=== PATIENT | female | born 1985 | race Caucasian/White ===

== ENCOUNTER 2019-02-17 09:09 | Emergency (ER) | payer SELFPAY ==
[2011-10-03 08:25] VITALS: BP 106/61
--- NOTE | 2019-02-17 09:58 | ER ---
Nurse's Notes [facility] Name: Genesis Martel Age: 33 yrs Sex: Female : 1985 Arrival Date: 02/17/2019 Time: 09:12 Bed 15 Private MD: None, None Diagnosis: Streptococcal pharyngitis Presentation: 02/17 09:21 Presenting complaint: Patient states: Sorethroat that started this morning, reports sg chills but unsure of any fever at home. Transition of care: patient was not received from another setting of care. Onset of symptoms was February 17, 2019. Risk Assessment: Do you want to hurt yourself or someone else? Patient reports no desire to harm self or others. Initial Sepsis Screen: Does the patient meet any 2 criteria? HR > 90 bpm. Does the patient have a suspected source of infection? No. Patient's initial sepsis screen is negative. Care prior to arrival: None. 09:21 Method Of Arrival: Ambulatory sg 09:21 Acuity: DREW 4 sg Historical: - Allergies: : No Known Allergies; sg - Home Meds: : None [Active]; sg - PMHx: : None; sg - PSHx: 09:21 None; sg - Immunization history:: Adult Immunizations not up to date. - Social history:: Smoking status: Patient/guardian denies using tobacco. - Ebola Screening: : Patient negative for fever greater than or equal to 101.5 degrees Fahrenheit, and additional compatible Ebola Virus Disease symptoms Patient denies exposure to infectious person Patient denies travel to an Ebola-affected area in the 21 days before illness onset No symptoms or risks identified at this time. Screenin:33 Abuse screen: Denies threats or abuse. Denies injuries from another. Nutritional sg screening: No deficits noted. Tuberculosis screening: No symptoms or risk factors identified. Never had TB. Fall Risk None identified. Assessment: 09:33 General: Appears in no apparent distress. well groomed, well developed, well nourished, sg Behavior is calm, cooperative, appropriate for age. Pain: Complains of pain in neck,and sore throat Quality of pain is described as aching. Neuro: Level of Consciousness is awake, alert, obeys commands, Oriented to person, place, time, situation. Cardiovascular: Patient's skin is warm and dry. Chest pain is denied. Respiratory: Airway is patent Respiratory effort is even, unlabored, Respiratory pattern is regular, symmetrical, Breath sounds are clear bilaterally. Denies cough, shortness of breath labored breathing, pain with respiration, pain with cough, pain with movement, air hunger. GI: Abdomen is round non-distended. : No signs and/or symptoms were reported regarding the genitourinary system. EENT: Nares are clear bilaterally Oral mucosa is moist. Throat is reddened has enlarged tonsils bilaterally. Derm: Skin is pink, warm \T\ dry. Musculoskeletal: Circulation, motion, and sensation intact. Range of motion: intact in all extremities. Vital Signs: 09:20 BP 111 / 76; Pulse 100; Resp 16; Pulse Ox 98% on R/A; Weight 66.22 kg (R); Height 5 ft. sg 6 in. (167.64 cm) (R); Pain 6/10; 09:20 Temp 98.6; sg 09:20 Body Mass Index 23.56 (66.22 kg, 167.64 cm) sg ED Course: 09:12 Patient arrived in ED. mr 09:12 None, None is Private Physician. mr 09:19 Tam[facility]C [facility]. kb 09:19 Erwin Haddad MD is Attending Physician. kb 09:19 Noe hSepherd, RN is Primary Nurse. sg 09:20 Arm band placed on. sg 09:22 Triage completed. sg 09:30 Strep swab sent to lab. sg Administered Medications: 09:58 Drug: Augmentin 875 mg Route: PO; sg Outcome: 09:57 Discharge ordered by . kb 10:10 Patient left the ED. sg Signatures: Tamiko Hunt FNP-C FNP-Noe Hines, RN RN Devika Mosquera mr
--- NOTE | 2019-02-17 09:58 | EDPHYS ---
Physician Documentation [facility] Name: Genesis Martel Age: 33 yrs Sex: Female : 1985 Arrival Date: 02/17/2019 Time: 09:12 Bed 15 Private MD: None, None ED Physician Erwin Haddad HPI: 02/17 09:55 This 33 yrs old Female presents to ER via Ambulatory with complaints of Sore kb Throat. 09:55 The patient presents with sore throat. The patient describes throat pain as constant. kb Onset: The symptoms/episode began/occurred yesterday. Severity of symptoms: At their worst the symptoms were moderate, in the emergency department the symptoms are unchanged. Modifying factors: The symptoms are alleviated by nothing, the symptoms are aggravated by swallowing, Patient's oral intake status: good. Associated signs and symptoms: Pertinent positives: fever, Sore throat. The patient has not experienced similar symptoms in the past. The patient has not recently seen a physician. 09:56 Was at a birthday constitution party on Saturday and a child there had strep. kb Historical: - Allergies: 09:21 No Known Allergies; sg - Home Meds: 09:21 None [Active]; sg - PMHx: 09:21 None; sg - PSHx: 09:21 None; sg - Immunization history:: Adult Immunizations not up to date. - Social history:: Smoking status: Patient/guardian denies using tobacco. - Ebola Screening: : Patient negative for fever greater than or equal to 101.5 degrees Fahrenheit, and additional compatible Ebola Virus Disease symptoms Patient denies exposure to infectious person Patient denies travel to an Ebola-affected area in the 21 days before illness onset No symptoms or risks identified at this time. ROS: 09:54 Neck: Negative for injury, pain, and swelling, Cardiovascular: Negative for chest pain, kb palpitations, and edema, Respiratory: Negative for shortness of breath, cough, wheezing, and pleuritic chest pain, Abdomen/GI: Negative for abdominal pain, nausea, vomiting, diarrhea, and constipation, Back: Negative for injury and pain, : Negative for injury, bleeding, discharge, and swelling, MS/Extremity: Negative for injury and deformity, Skin: Negative for injury, rash, and discoloration, Neuro: Negative for headache, weakness, numbness, tingling, and seizure. 09:54 Constitutional: Positive for fever. 09:54 ENT: Positive for sore throat. Exam: 09:54 Constitutional: This is a well developed, well nourished patient who is awake, alert, kb and in no acute distress. Head/Face: Normocephalic, atraumatic. Neck: Trachea midline, no thyromegaly or masses palpated, and no cervical lymphadenopathy. Supple, full range of motion without nuchal rigidity, or vertebral point tenderness. No Meningismus. Chest/axilla: Normal chest wall appearance and motion. Nontender with no deformity. No lesions are appreciated. Cardiovascular: Regular rate and rhythm with a normal S1 and S2. No gallops, murmurs, or rubs. Normal PMI, no JVD. No pulse deficits. Respiratory: Lungs have equal breath sounds bilaterally, clear to auscultation and percussion. No rales, rhonchi or wheezes noted. No increased work of breathing, no retractions or nasal flaring. Abdomen/GI: Soft, non-tender, with normal bowel sounds. No distension or tympany. No guarding or rebound. No evidence of tenderness throughout. Skin: Warm, dry with normal turgor. Normal color with no rashes, no lesions, and no evidence of cellulitis. MS/ Extremity: Pulses equal, no cyanosis. Neurovascular intact. Full, normal range of motion. Neuro: Awake and alert, GCS 15, oriented to person, place, time, and situation. Cranial nerves II-XII grossly intact. Motor strength 5/5 in all extremities. Sensory grossly intact. Cerebellar exam normal. Normal gait. 09:54 ENT: External ear(s): are unremarkable, Ear canal(s): are normal, TM's: are normal, Nose: is normal, Mouth: is normal, Posterior pharynx: Airway: normal, no evidence of obstruction, Tonsils: bilaterally enlarged, with erythema, Uvula: normal, midline, swelling, that is moderate, erythema, that is moderate, exudate, is not appreciated. Vital Signs: 09:20 BP 111 / 76; Pulse 100; Resp 16; Pulse Ox 98% on R/A; Weight 66.22 kg (R); Height 5 ft. sg 6 in. (167.64 cm) (R); Pain 6/10; 09:20 Temp 98.6; sg 09:20 Body Mass Index 23.56 (66.22 kg, 167.64 cm) MDM: 09:19 Patient medically screened. kb 09:55 Data reviewed: vital signs, nurses notes. Data interpreted: Pulse oximetry: on room air kb is 98 %. Interpretation: normal. Counseling: I had a detailed discussion with the patient and/or guardian regarding: the historical points, exam findings, and any diagnostic results supporting the discharge/admit diagnosis, lab results, the need for outpatient follow up, a family practitioner, to return to the emergency department if symptoms worsen or persist or if there are any questions or concerns that arise at home. 02/17 09:25 Order name: Strep; Complete Time: 09:53 kb Administered Medications: 09:58 Drug: Augmentin 875 mg Route: PO; Disposition: 02/18 07:15 Co-signature as Attending Physician, Erwin Haddad MD I agree with the assessment and kdr plan of care. Disposition: 02/17/19 09:57 Discharged to Home. Impression: Streptococcal pharyngitis. - Condition is Stable. - Discharge Instructions: Strep Throat, [id number]. - Prescriptions for Augmentin 875- 125 mg Oral Tablet - take 1 tablet by ORAL route every 12 hours for 10 days; 20 tablet. - Medication Reconciliation Form, Thank You Letter, Antibiotic Education, Prescription Opioid Use, Work release form form. - Follow up: Emergency Department; When: As needed; Reason: Worsening of condition. Follow up: Private Physician; When: 2 - 3 days; Reason: Recheck today's complaints, Continuance of care, Re-evaluation by your physician. Signatures: Dispatcher [employer] Tamiko Balbuena, BROOKE-C CORRECTIVE THERAPY AIDE-Noe Hines RN RN Erwin Zuniga MD MD [facility] Corrections: (The following items were deleted from the chart) 02/17 10:10 09:57 02/17/2019 09:57 Discharged to Home. Impression: Streptococcal pharyngitis. sg Condition is Stable. Forms are Medication Reconciliation Form, Thank You Letter, Antibiotic Education, Prescription Opioid Use. Follow up: Emergency Department; When: As needed; Reason: Worsening of condition. Follow up: Private Physician; When: 2 - 3 days; Reason: Recheck today's complaints, Continuance of care, Re-evaluation by your physician. kb
[2019-02-17] MEDS ORDERED: AMOX/K CLAV 875 MG TAB ONE (09:59)
== END 2019-02-17 10:10 | disposition home or self-care (01) ==
LOC: ER 09:09
DX: J02.0 Streptococcal pharyngitis (principal)
CPT/HCPCS: 87081; 99283

== ENCOUNTER 2019-02-17 15:37 | Emergency (ER) | payer SELFPAY ==
[2019-02-17] MEDS ORDERED: HYDROCODONE/APAP 10/325 TAB ONE (16:00)
[2019-02-17] MEDS ORDERED: PROMETHAZINE 25 MG TABLET ONE (16:00)
[2019-02-17] MEDS ORDERED: DIAZEPAM 2 MG TABLET ONE (16:00)
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
[2019-02-17 17:07] VITALS: O2SAT 100
[2019-02-17 17:09] VITALS: BP 115/78; TEMP 98.5
--- NOTE | 2019-02-18 06:37 | EKG ---
Test Date: 2019-02-17 Test Time: 16:07:07 Grass Cutter: TAZ MEASUREMENT RESULTS: Intervals: Rate: 90 AR: 134 QRSD: 86 QT: 364 QTc: 445 [place]: P: 71 AR: 134 QRS: 59 T: 49 INTERPRETIVE STATEMENTS: Normal sinus rhythm Normal ECG No previous ECG available for comparison Electronically Signed On 02-18-19 06:36:25 RADIO RIGGER by Bharath Ohara
== END 2019-02-17 16:41 | disposition home or self-care (01) ==
LOC: ER 15:37
DX: S20.211A Contusion of right front wall of thorax, initial encounter (principal); V49.40XA Driver injured in collision with unspecified motor vehicles in traffic accident, initial encounter
CPT/HCPCS: 71250; 74150; 93005; 99284; Q0169

== ENCOUNTER 2020-05-01 09:05 | Emergency (ER) | payer SELFPAY ==
--- OUTSIDE RECORDS SUMMARY | 2020-05-01 09:07 | XMS REPORT | Summary of Care ---
:1985 [address] [facility] - Health Address [address] [place] [address] Care Team Providers Name Role Phone Samantha Trevizo Primary Care Provider Encounter Details Date Type Department Care Team Description 02/11/[address] [facility] Doctor Unassigned, No [address] [facility] [place] [address] [address] [place] [address] Allergies Active Allergy Reactions Severity Noted Date Comments Hydrocodone Nausea and/or Vomiting 04/10/2017 documented as of this encounter (statuses as of 02/11/2020) Medications Medication Sig Dispensed Refills Start Date End Date Status cefpodoxime 200 mg Take 1 tablet by 10 tablet 0 04/12/2017 Active tablet mouth 2 (two) times daily. traMADOL 50 mg tablet Take 1 tablet by 10 tablet 0 04/11/2017 Active mouth every 6 (six) hours as needed for Pain (scale 4-6) or Pain (scale 7-10). 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 documented as of this encounter (statuses as of 02/11/2020) Social History Tobacco Use Types Packs/Day Years Used Date Never Smoker Alcohol Use Drinks/Week oz/Week Comments No Sex Assigned at Date Recorded Not on file documented as of this encounter Last Filed Vital Signs Not on filedocumented in this encounter Plan of Treatment Date Type Specialty Care Team Description 02/11/2020 Office Visit OB Satellites Angelica Gaviria, TUBE WASHER [address] [place], [place] [address] [phone] Health Maintenance Due Date Last Done Comments VARICELLA VACCINES (1 of 2 - 10/08/1988 2-dose childhood series) Depression Screening 1999 DTaP,Tdap,and Td Vaccines (1 - 10/08/2006 Tdap) PAP SMEAR 10/08/2008 INFLUENZA VACCINE (#1) 2019 PNEUMOCOCCAL 0-64 YEARS COMBINED Aged Out No longer eligible based on SERIES patient's age to complete this topic documented as of this encounter Procedures Procedure Name Priority Date/Time Associated Diagnosis Comme nts NOTICE OF PRIVACY Routine 02/11/2020 12:52 PM CDT PRACTICES documented in this encounter Results Not on filedocumented in this encounter Insurance Payer Benefit Plan / Subscriber ID Effective Phone Address [facility] [id number] 2017-Pres [address] Medic aid HEALTH CHOICE HEALTH CHOICE ent [id number] - MANAGED MEDICAID [place], [place] [id number] [facility] [id number] 2020-Pres [phone] Medicaid WOMEN WOMEN ent [id number] [place] [address] [facility] HTW-RMCHP [id number] 2020-Pres [phone] edicaid WOMEN ent [id number] [place] [address] documented as of this encounter
--- OUTSIDE RECORDS SUMMARY | 2020-05-01 09:07 | XMS REPORT | Continuity of Care Document ---
:1985 Author Organization [facility] t Address [address] [place] [address] Care Team Providers Name Role Phone [place] [facility] Attending Clinician Jerri Esparza Attending Clinician Problems This patient has no known problems. Allergies, Adverse Reactions, Alerts This patient has no known allergies or adverse reactions. Medications This patient has no known medications. Procedures This patient has no known procedures. Encounters Start End Encounter Admission Attending Care Care Encounter Source Date/Time Date/Time Type Type Clinicians Facility Department ID 2020-03-03 2020-03-03 Telephone SHARAD Ríos [id number] 00:00:00 00:00:00 [facility] [id number] [facility] [id number] 2020-03-03 2020-03-03 Letter SHARAD Ríos [id number] 00:00:00 00:00:00 (Out) [facility] [id number] [facility] [id number] 2020-02-11 2020-02-11 Office JAC Gaviria [id number] 12:57:49 14:29:44 Visit Angelica Guthrie HISTOLOGY ASSISTANT [id number] [facility] [id number] MATERNAL [id number] & CHILD [address] [place] [address] Results This patient has no known results.
--- OUTSIDE RECORDS SUMMARY | 2020-05-01 09:08 | XMS REPORT | Summary of Care ---
:1985 Author Organization [facility] Address [address] [place] [address] Care Team Providers Name Role Phone Samantha Trevizo Primary Care Provider Reason for Referral (Routine) Status Reason Specialty Diagnoses / Referred By Referred To Procedures Contact Contact New Request Obstetrics & Diagnoses Abnormal appearance of cervix Angelica Gaviria Gynecology Procedures CONSULT/REFERRAL ARCHIVIST POLITICAL HISTORY Dysplasia Clinic N, [employer] [address] [place] [address] Reason for Visit Reason Comments Well Woman Exam Encounter Details Date Type Department Care Team Description 02/11/2020 Office Visit [facility]- Angelica Gaviria Wel l woman exam (Primary Dx); [facility] History of female sterilization; [address] Screen for STD (sexually transmitted dis ease); Street [place] [address] Abnormal uterine bleeding; [place] [id number] Pain pelvic; [id number] Abnormal appearance of cervix [phone] Allergies Active Allergy Reactions Severity Noted Date Comments Hydrocodone Nausea and/or Vomiting 04/10/2017 documented as of this encounter (statuses as of 02/11/2020) Medications Medication Sig Dispensed Refills Start Date End Date Status cyanocobalamin, Inject as 0 Act celi vitamin B-12, directed. 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 traMADOL 50 mg Take 1 tablet 10 tablet 0 04/11/2017 02/11/2020 Discontinued tablet by mouth every 6 (six) hours as needed for Pain (scale 4-6) or Pain (scale 7-10). 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 documented as of this encounter (statuses as of 02/11/2020) Social History Tobacco Use Types Packs/Day Years Used Date Former Smoker Quit: 2011 Smokeless Tobacco: Never Used Alcohol Use Drinks/Week oz/Week Comments Yes SOCIAL Sex Assigned at Date Recorded Not on file documented as of this encounter Last Filed Vital Signs Vital Sign Reading Time Taken Comments Blood Pressure 102/67 02/11/2020 1:30 PM CDT Pulse 83 02/11/2020 1:30 PM CDT Temperature 36.3 C (97.3 F) 02/11/2020 1:30 PM CDT Respiratory Rate 18 02/11/2020 1:30 PM CDT Oxygen Saturation - - Inhaled Oxygen Concentration - - Weight 65.4 kg (144 lb 3 oz) 02/11/2020 1:30 PM CDT Height 154.9 cm (5' 1") 02/11/2020 1:30 PM CDT Body Mass Index 27.24 02/11/2020 1:30 PM CDT documented in this encounter Patient Instructions Patient InstructionsCecelia Egan LVN - 02/11/2020 1:00 PM CDT Patient Education Clinical Breast Exam Many health organizations recommend a yearly clinical breast exam. This exam may be done by a felt machine mechanic, family healthcare provider, nurse practitioner, nurse pipe line gauger, or specially trained nurse. Yearly breast exams help tomake surethat breast conditions are found early. Your healthcare providers role A healthcare professional knows the tests and follow-up care needed if a problem is found. Your clinical exam is also a great time to ask questions about breast self-exams. You can find out if yourechecking your breasts in the best way. Or you may want to ask how , breast implants, or breast reduction surgery affect the way you should check your breasts. Diagnostic tests If a clinical exam reveals a breast change, you may have other tests to find out more. These tests may include: Mammography. A low-dose X-ray of your breast tissue. Ultrasound. An imaging test that uses sound waves to create images of your breast. Biopsy. A small amount of breast tissue is removed by needle or by a cut (incision). The tissue is then checked under a microscope. Guidelines for having clinical breast exams The [place] [employer] recommends that starting at age 29, you should have a clinical breast exam every 1 to 3 years. After age 40, have a clinical breast exam each year. If youre at higher risk for breast cancer, you may need exams more often. Risk factors for breast cancer may include: Being over 50 or postmenopausal Having a family history of breast cancer Having the BRCA1 or BRCA2 gene mutation or certain other gene mutations Having more menstrual periods due to starting menstruation early(before age 12) or having a late menopause (after age 55) Having no pregnancies Having a first after age 30 Being obese Having a history of radiation treatment to your chest area Exposure to AI during your mother's Not being active Drinking too much alcohol Having dense breast tissue Taking hormone therapy after menopause Other health organizations have different recommendations. Talk with your healthcare provider about what is best for you. [employer] last reviewed this educational content on 07/15/201919998216-2269 The [employer]. All rights reserved. This information is not intended as a substitute for professional medical care. Always follow your healthcare professional's instructions. Patient Education Breast Health: Breast Self-Awareness What is breast self-awareness? Breast self-awareness is knowing how your breasts normally look and feel. Your breasts change as yougo through different stages of your life. So its important to learn what is normal for your breasts. Knowing about your breasts helps you spot any changes in them right away. Tell your healthcare provider about any changes. Why is breast self-awareness important? Many experts now say that women should focus on breast self-awareness instead of doing a breast self-examination (BSE). These experts include the [place] [employer] and the [place] [employer]. Some experts even advise not teaching women to do a BSE. Thats because research hasnt shown a clear benefit to doing BSEs. Breast self-awareness is different than a BSE. It isnt about following a certain method and schedule. Its about knowing what's normal for your breasts. That way you can spot even small changes right away. If you see any changes, tell your healthcare provider. Changes to look for Call your healthcare provider if you find any changes in your breasts that worry you. These changes may be: A lump Nipple discharge other than breast milk, especially if it's bloody Swelling A change in size or shape Skin changes, such as redness, thickening, or dimpling of the skin Swollen lymph nodes in the armpit Nipple problems, such as pain or redness If you find a lump Call your provider if you find lumpiness in one breast. Also call if you feel something different inthe tissue or feel a definite lump. Sometimes lumpiness may be due to menstrual changes. But there may be reason for concern. Your provider may want to see you right away if you have: Nipple discharge that is bloody Skin changes on your breast, such as dimpling or puckering Its okay to be upset if you find a lump. Be sure to call your provider right away. Remember that most breast lumps are benign. This means they are not cancer. [employer] last reviewed this educational content on 08/14/201919998162-6681 The [employer]. All rights reserved. This information is not intended as a substitute for professional medical care. Always follow your healthcare professional's instructions. Patient Education Prevention Guidelines,Women Ages 18 to 39 Screening tests and vaccines are an important part of managing your health. A screening test is doneto find possible disorders or diseases in people who don't have any symptoms. The goal is to find a disease early so lifestyle changes can be made and you can be watched more closely to reduce the riskof disease, or to detect it early enough to treat it most effectively. Screening tests are not considered diagnostic, but are used to determine if more testing is needed. Health counseling is essential, too. Below are guidelines for these, for women ages 18 to 39. Talk with your healthcare provider tomake sure youre up-to-date on what you need. Screening Who needs it How often Alcohol misuse All women in this age group At routine exams Blood pressure All women in this age group Yearly checkup if your blood pressure is normal Normal blood pressure is less than 120/80 mm Hg If your blood pressure reading is higher than normal, follow the advice of your healthcare provider Breast cancer All women in this age group should talk with their healthcare providers about the needfor clinical breast exams (CBE)1 Clinical breast exam every 3 years1 Cervical cancer Women ages 21 and older Women between ages 21 and 29 should have a Pap test every 3years; women between ages 30 and 65 are advised to have a Pap test plus an HPV test every 5 years Chlamydia Sexually active women ages 24 and younger, and women at increased risk for infection Every 3 years if you're at risk or have symptoms Depression All women in this age group At routine exams Diabetes mellitus, type 2 Adults with no symptoms who are overweight or obese and have 1 or more other risk factors for diabetes At least every 3 years. Also, testing for diabetes during after the 24th week. Gonorrhea Sexually active women at increased risk for infection At routine exams Hepatitis C Anyone at increased risk At routine exams HIV All women At routine exams3 Obesity All women in this age group At routine exams Syphilis Women at increased risk for infection should talk with their healthcare provider At routine exams Tuberculosis Women at increased risk for infection should talk with their healthcare provider Ask your healthcare provider Vision All women in this age group At least 1 complete exam in your 20s, and 2 in your 30s Vaccine Who needs it How often Chickenpox (varicella) All women in this age group who have no record of this infection or vaccine2 doses; the second dose should be given 4 to 8 weeks after the first dose Hepatitis A Women at increased risk for infection should talk with their healthcare provider 2 doses given at least 6 months apart Hepatitis B Women at increased risk for infection should talk with their healthcare provider 3 doses over 6 months; second dose should be given 1 month after the first dose; the third dose should be given at least 2 months after the second dose and at least 4 months after the first dose Haemophilus influenzae Type B (HIB) Women at increased risk for infection should talk with their healthcare provider 1 to 3 doses Human papillomavirus (HPV) All women in this age group up to age 26 3 doses; the second dose should be given 1 to 2 months after the first dose and the third dose given 6 months after the first dose Influenza (flu) All women in this age group Once a year Measles, mumps, rubella (MMR) All women in this age group who have no record of these infections orvaccines 1 or 2 doses Meningococcal Women at increased risk for infection should talk with their healthcare provider 1 ormore doses Pneumococcal conjugate vaccine (PCV13)and pneumococcal polysaccharidevaccine(PPSV23) Women atincreased risk for infection should talk with their healthcare provider PCV13: 1 dose ages 19 to 65(protects against 13 types of pneumococcal bacteria) PPSV23: 1 to2 doses through age 64, or 1 dose at 65 or older (protects against 23 types of pneumococcal bacteria) Tetanus/diphtheria/pertussis (Td/Tdap) booster All women in this age group Td every 10 years, or a one-time dose of Tdap instead of a Td booster after age 18, then Td every 10 years Counseling Who needs it How often BRCA gene mutation testing for breast and ovarian cancer susceptibility Women with increased risk for having gene mutation When your risk is known Breast cancer and chemoprevention Women at high risk for breast cancer When your risk is known Diet and exercise Women who are overweight or obese When diagnosed, and then at routine exams Domestic violence Women at the age in which they are able to have children At routine exams Sexually transmitted infection prevention Women who are sexually active At routine exams Skin cancer Prevention of skin cancer in fair-skinned adults At routine exams Use of tobacco and the health effects it can cause All women in this age group Every visit 1 According to the ACS, women ages 20 to 39 years should have a clinical breast exam (CBE) as part of their routine health exam every 3 years. Breast self-exams are an option for women starting in their 20s.But the U.S. Preventive Services Task Force (USPSTF) does not recommend CBE. 2 Those who are 18 years old and not up-to-date on their childhood vaccines should get all appropriate catch-up vaccines recommended by the CDC. 3 The USPSTF recommends that all people ages 15 to 65 years be screened for HIV and those younger orolder people at increased risk. The CDC recommends that everyone between the ages of 13 and 64 get tested for HIV at least once as part of routine health care. [employer] last reviewed this educational content on 01/13/201719990156-0760 The [employer]. All rights reserved. This information is not intended as a substitute for professional medical care. Always follow your healthcare professional's instructions. Patient Education Understanding STIs When it comes to sex, nothing is risk-free. Any sexual contact with the penis, vagina, anus, or mouth can spread a sexually transmitted infection (STI). These include chlamydia, gonorrhea, herpes, HIV,and genital warts. STIs are also known as sexually transmitted diseases (STDs). The only sure way toprevent STIs is not having sex (abstinence). But there are ways to make sex safer. Use a latex condom each time you have sex. And choose your partner wisely. Use condoms for safer sex If you have sex, latex condoms provide the best protection against STIs. Latex condoms stop the exchange of body fluids that carry certain STIs. They also limit contact with affected skin. Be aware that a condom doesnt cover all skin. So affected skin that isn't covered can still transfer disease. But youre safer with a condom than without one. Use a condom even if you use other control. control methods such as the pill or IUD help prevent , but they don't protect against STIs. Choose the right condom Condoms made of latex prevent disease best. If youre allergic to latex, use polyurethane condoms instead. Male condoms fit over the penis. Female condoms line the vagina. Before buying a condom, read the label to be sure it prevents disease. Some novelty condoms dont. The right lubricant helps Buy lubricated condoms or use lubricant. This provides greater comfort and reduces the risk for condom breakage. Use only water-based lubricants. Dont use oil, lotion, or petroleum jelly. They can weaken the condom, causing breakage. Also, you may want to choose lubricants without nonoxynol-9. This spermicide may cause irritation. It can raise the risk for certain STIs. Use condoms correctly For condoms to work, they must be used the right way. Keep these tips in mind: Use a new latex condom each time you have sex. Slip the condom on the penis before any contact ismade. When ready to withdraw, hold the rim of the condom as the penis pulls out. This prevents the condom from slipping off. Check the expiration date before using a condom. Dont store condoms in places that can get hot, such as a car or a wallet that is carried in a back pocket. Get to know your partner Safer sex is a process. It involves getting to know your partner and making informed choices. Ask each other how many partners you have had in the past, and how many you have now. Find out if either ofyou has HIV or any other STI. If you decide to have sex, use a condom each time. Dont stop using condoms unless youre sure neither of you has other partners and youve both been tested to confirm you dont have HIV or other STIs. Then stay free of disease by having sex only with each other (monogamy). Keep your cool Dont let alcohol or drugs cloud your judgment. They could lead you to have sex with someone you wouldnt have chosen if you were sober. Or you might forget to use a condom. If you do plan to have sex, keep a latex condom with you. Dont wait until youre in the heat of passion to try to find one. Consider abstinence The only way to be sure you wont get an STI is to abstain from sex. Abstinence is a choice that many people make at some point in their life. Maybe you want to wait until you are sure youre readybefore you have sex. Maybe youd like a break from the responsibilities of sex for a while. Or maybe you just want to know your partner better before taking the next step. Abstinence is a choice you can make now to protect your future. [employer] last reviewed this educational content on 03/15/201819996860-3058 The [employer]. [address] [place] [address], [place] [address]. All rights reserved. This information is not intended as a substitute for professional medical care. Always follow your healthcare professional's instructions. Patient Education Understanding HIV and AIDS It's important to know how HIV can get into your body and what happens once its there. Then youll be better prepared to protect yourself or others against this virus. A person with HIV can look and feel perfectly healthy. But that person can give HIV to others as soon as he or she is infected with the virus. Having unsafe or unprotected sex or sharing needles puts you at risk for HIV. Talk with your healthcare provider about ways to protect yourself or a loved one from getting HIV. How HIV infection progresses After HIV enters the body, it attacks the immune system in the stages below. A person with HIV can infect others once the virus gets into the blood. HIV with no symptoms. A person with HIV may have no symptoms for years. The only sign of infection may be a positive blood test for HIV 2 weeks to 3 months or later after HIV enters the body. HIV with symptoms. Some people develop an illness similar to mono (mononucleosis) 2 to 4 weeks after the virus enters the body. This is called acute retroviral syndrome. Symptoms may include swollen lymph glands, chills, fever, night sweats, weakness, weight loss, skin rashes, mouth ulcers, or sore t hroat. Symptoms may be mild or the person can feel quite sick. Even without treatment the symptoms almost always go away in a few days or up to 2 to 3 weeks. Then the person has no symptoms, often for years. But over time the immune system starts to get weaker and symptoms start appearing. People at this stage may have a yeast infection in the mouth (oral thrush), shingles, skin problems, pneumonia, diarrhea that keeps coming back, or weight loss. AIDS. AIDS is the most advanced stage of HIV infection, when the immune system is severely weakened.Certain rare diseases and cancers that normally would not occur, now can occur because the body can no longer fight them well enough. It is often these diseases that cause in people with AIDS. HIV may also directly attack the brain and nervous system. This causes seizures and loss of memory and body movement. It also affects many other parts of the body. This leads to problems such as anemia, low white blood cell count, diarrhea, belly pain, skin problems, and many others. How HIV enters the body HIV is carried in semen, vaginal fluid, blood, and breastmilk. During sex, HIV can enter the body. It gets in through the fragile tissue and linings, sores, or cuts in or around the vagina, penis, anus, and mouth. During drug use, tattooing, or body piercing, the virus can enter the blood through an infected needle. A mother who has HIV can infect her child during , childbirth, and . [employer] last reviewed this educational content on 09/13/201819997320-9792 The [employer]. [address] [place] [address], [place] [address]. All rights reserved. This information is not intended as a substitute for professional medical care. Always follow your healthcare professional's instructions. Patient Education Eating Heart-Healthy Foods Eating has a big impact on your heart health. In fact, eating healthier can improve several of your heart risks at once. For instance, it helps you manage weight, cholesterol, and blood pressure. Here are ideas to help you make heart- healthy changes without giving up allthe foods and flavors you love. Getting started Talk with your healthcare provider about eating plans, such as the DASH or Mediterranean diet. You may also be referred to a dietitian. Change a few things at a time. Give yourself time to get used to a few eating changes before adding more. Work to create a tasty, healthy eating plan that you can stick to for the rest of your life. Goals for healthy eating Below are some tips to improve your eating habits: Limit saturated fats and trans fats. Saturated fats raise your levels of cholesterol, so keep these fats to a minimum. They are found in foods such as fatty meats, whole milk, cheese, and palm and coconut oils. Avoid trans fats because they lower good cholesterol as well as raise bad cholesterol. Trans fats are most often found in processed foods, such as pastries, cookies, pies, muffins, fried foods, stick margarines, and shortening. Reduce how much sodium (salt) you have. Eating too much salt may increase your blood pressure. Limit your sodium intake to 2,300 milligrams (mg) per day(the amount in 1 teaspoon of salt), or less if your healthcare provider recommends it. Dining out less often and eating fewer processed foods aretwo great ways to decrease the amount of salt you consume. At home, flavor your foods with other spices and herbs instead of salt. Managing calories. A calorie is a unit of energy. Your body gomez calories for fuel, but if you eat more calories than your body gomez, the extras are stored as fat. Your healthcare provider can help you create a diet plan to manage your calories. This will likely include eating healthier foods andgetting regular exercise. To help you track your progress, keep a diary to record what you eat and how often you exercise. Choose the right foods Aim to make these foods ricky of your diet. If you have diabetes, you may have different recommendations than what is listed here: Fruits and vegetables provide plenty of nutrients without a lot of calories. At meals, fill half your plate with these foods. Choose between fresh, frozen, canned, or dried without added sauces, salt, or sugars. Split the other half of your plate between whole grains and lean protein. Whole grains are high in fiber and rich in vitamins and nutrients. Good choices include whole wheat bread, pasta, oats, and brown rice. Make at least half of your grains whole grains. Lean proteins give you nutrition with less fat. Good choices include fish, skinless chicken and turkey, and beans. Draining the fat from cooked ground meat is another way to reduce the amount of fatyou eat. Low-fat and nonfat dairy provide nutrients without a lot of fat. Try low-fat or nonfat milk, cheese, or yogurt. Healthy fats can be good for you in small amounts. These are unsaturated fats, such as olive oil,nuts, and fish. Try to have at least 2 servings per week of fatty fish, such as salmon, sardines, mackerel, rainbow trout, and albacore tuna. These contain omega-3 fatty acids, which are good for your heart. Flaxseed and walnuts are other sources of heart-healthy fats. More on heart-healthy eating Read food labels Healthy eating starts at the grocery store. Be sure to pay attention to food labels on packaged foods. Look for products that are high in fiber and protein, and low in saturated fat, added sugars, and sodium. Avoid products that contain trans fat. And pay close attention to serving size. For instance,if you plan to eat two servings, double all the numbers on the label. Prepare food right A watt part of healthy cooking is cutting down on added fat, sugar and salt. Look on the internet forlower-fat, lower-sodium recipes without a lot of added sugars. Also try these tips: Remove fat from meat and skin from poultry before cooking. Skim fat from the surface of soups and sauces. Broil, roast, boil, bake, steam, grill, or microwave food without added fats. Choose ingredients that spice up your food without adding calories, fat, sugar, or sodium. Try these items: horseradish, hot sauce, lemon, mustard, nonfat salad dressings, and vinegar. Small amountsof olive oil-based vinaigrettes are OK, too. For salt-free herbs and spices, try basil, cilantro, cinnamon, cumin, paprika, pepper, and yang. [employer] last reviewed this educational content on 10/14/201919997153-6466 The [employer]. All rights reserved. This information is not intended as a substitute for professional medical care. Always follow your healthcare professional's instructions. Patient Education Understanding USDA MyPlate The USDA has guidelines to help you make healthy food choices. These are called MyPlate. MyPlate shows the food groups that make up healthy meals using the image of a place setting. Before you eat, think about the healthiest choices for what to put on your plate or in your cup or bowl. To learn more about building a healthy plate, visit www.choosemyplate.gov. The food groups Fruits. Any fruit or 100% fruit juice counts as part of the Fruit Group. Fruits may be fresh, canned, frozen, or dried, and may be whole, cut-up, or pureed. Make 1/2 of your plate fruits and vegetables. Vegetables. Any vegetable or 100% vegetable juice counts as a member of the Vegetable Group. Vegetables may be fresh, frozen, canned, or dried. They can be served raw or cooked and may be whole, cut-up, or mashed. Make 1/2 of your plate fruits and vegetables. Grains. All foods made from grains are part of the Grains Group. These include wheat, rice, oats,cornmeal, and barley. Grains are often used to make foods such as bread, pasta, oatmeal, cereal, tortillas, and grits. Grains should be no more than 1/4 of your plate. At least half of your grains should be whole grains. Protein. This group includes meat, poultry, seafood, beans and peas, eggs, processed soy products(such as tofu), nuts (including nut butters), and seeds. Make protein choices no more than 1/4 of your plate. Meat and poultry choices should be lean or low fat. Dairy. The Dairy Group includes all fluid milk products and foods made from milk that contain calcium, such as yogurt and cheese. (Foods that have little calcium, such as cream, butter, and cream cheese, are not part of this group.) Most dairy choices should be low-fat or fat-free. Oils. Oils aren't a food group, but they do contain essential nutrients. However it's important to watch your intake of oils. These are fats that are liquid at room temperature. They include canola,corn, olive, soybean, vegetable, and sunflower oil. Foods that are mainly oil include mayonnaise, certain salad dressings, and soft margarines. You likely already get your daily oil allowance from the foods you eat. Things to limit Eating healthy also means limiting these things in your diet: Salt (sodium). Many processed foods have a lot of sodium. To keep sodium intake down, eat fresh vegetables, meats, poultry, and seafood when possible. Purchase low-sodium, reduced-sodium, or vd-utgc-lnfvy food products at the store. And don't add salt to your meals at home. Instead, season them with herbs and spices such as dill, oregano, cumin, and paprika. Or try adding flavor with lemon or limezest and juice. Saturated fat. Saturated fats are most often found in animal products such as beef, pork, and chicken. They are often solid at room temperature, such as butter. To reduce your saturated fat intake, choose leaner cuts of meat and poultry. And try healthier cooking methods such as grilling, broiling,roasting, or baking. For a simple lower-fat swap, use plain nonfat yogurt instead of mayonnaise whenmaking potato salad or macaroni salad. Added sugars. These are sugars added to foods. They are in foods such as ice cream, candy, soda, fruit drinks, sports drinks, energy drinks, cookies, pastries, jams, and syrups. Cut down on added sugars by sharing sweet treats with a family member or friend. You can also choose fruit for dessert, and drink water or other unsweetened beverages. [employer]Net last reviewed this educational content on 09/14/201919990078-7845 The [employer]. All rights reserved. This information is not intended as a substitute for professional medical care. Always follow your healthcare professional's instructions. documented in this encounter Progress Notes Angelica Gaviria FNP - 02/11/2020 1:00 PM CDT Chief complaint: Chief Complaint Patient presents with Well Woman Exam HPI Here for Well Woman Exam and contraceptive management. Patient has Essure for contraception, inserted by Dr. Hernandez in 2013. Pt reports 1 month after Essure placement she started having pelvic pain. She describes the pain as a constant cramping that has worsened over the last year. She also reports prolonged bleeding with periods, most recent period lasted 3 weeks. Reports pain with intercourse. Desires STD testing. Pt reports no past or present history of physical, sexual, and emotional abuse. Rubella: n/a VZV: n/a BMI: Body mass index is 27.24 kg/m. Td: unsure, declines Pap Smear: due today Gardasil: N/A Mammogram:N/A Guaiac:N/A Colonoscopy:N/A Histories OB History Para Term AB Living 3 3 2 3 SAB TAB Ectopic Multiple Live Births 3 # Outcome Date GA Lbr Grupo/2nd Weight Sex Delivery Anes PTL Lv 3 Term 03/11/13 39w0d F NORMAL SPONT SAM 2 Para 09/30/11 40w0d M NORMAL SPONT SAM 1 Term 08/21/08 38w0d F NORMAL SPONT SAM Past Medical History: Diagnosis Date Abnormal uterine bleeding 02/11/2020 Anxiety 2013 Asthma as a child Depression 2009 post depression Depression 2013 ongoing Kidney disease Family History Problem Relation Age of Onset Lung Cancer Maternal Grandmother Cancer Maternal Grandmother lung Asthma Mother Depression Mother Heart Father Depression Brother Depression Maternal Uncle Heart Paternal Uncle Heart Paternal Grandfather Family Status Relation Name Status MGMo Mo Alive Fa Alive Bro Alive MUnc Alive PUnc PGFa Alive History reviewed. No pertinent surgical history. Social History Socioeconomic History Marital status: Single Spouse name: Not on file Number of children: Not on file Years of education: Not on file Highest education level: Not on file Occupational History Not on file Social Needs Financial resource strain: Not on file Food insecurity Worry: Not on file Inability: Not on file Transportation needs Medical: Not on file Non-medical: Not on file Tobacco Use Smoking status: Former Smoker Quit date: 2011 Years since quittin.8 Smokeless tobacco: Never Used Substance and Sexual Activity Alcohol use: Yes Comment: SOCIAL Drug use: Not Currently Types: Mescaline Sexual activity: Not on file Lifestyle Physical activity Days per week: Not on file Minutes per session: Not on file Stress: Not on file Relationships Social connections Talks on phone: Not on file Gets together: Not on file Attends episcopalian service: Not on file Active member of club or organization: Not on file Attends meetings of clubs or organizations: Not on file Relationship status: Not on file Intimate partner violence Fear of current or ex partner: Not on file Emotionally abused: Not on file Physically abused: Not on file Forced sexual activity: Not on file Other Topics Concern Not on file Social History Narrative Patient lives with partner and children. Social History Substance and Sexual Activity Sexual Activity Not on file Labs Labs are pending. Radiology No new radiology. Allergies [facility] is allergic to hydrocodone. Medications [facility] has a current medication list which includes the following prescription(s): cyanocobalamin (vitamin b-12). Review of Systems Constitutional: Negative. HENT: Negative. Eyes: Negative. Respiratory: Negative. Breasts: Negative. Cardiovascular: Negative. Gastrointestinal: Negative. Genitourinary: Positive for menstrual problem, pelvic pain and dyspareunia. Musculoskeletal: Negative. Skin: Negative. Neurological: Negative. Psychiatric/Behavioral: Negative. Endocrine: Endocrine negative BP 102/67 (BP Location: Right arm, Patient Position: Sitting, BP CUFF SIZE: Adult Medium) | Pulse 83 | Temp 36.3 C (97.3 F) (Oral) | Resp 18 | Ht 5' 1" (1.549 m) | Wt 144 lb 3 oz (65.4 kg) | LMP 01/04/2020 (Approximate) | BMI 27.24 kg/m Pregravid BMI: Could not be calculated Physical Exam Vitals reviewed. Constitutional: She is oriented to person, place, and time. She appears well- developed and well-nourished. Her body habitus is normal. Neck: No thyroid nodules and no thyromegaly palpated. Cardiovascular: Regular rate and rhythm. No murmur auscultated. Pulmonary/Chest: Breath sounds clear to auscultation. Normal inspiratory effort. Abdominal: Abdomen is soft. No mass palpated. No tenderness present. There is no hepatosplenomegaly. Neuro/Psychiatric: She has a normal mood and affect. She is oriented to person, place, and time. Skin: Skin normal. No lesion and no rash present. Breast: Right breast exhibits no mass, no nipple discharge and no tenderness. Left breast exhibits no mass, no nipple discharge and no tenderness. Normal left breast and normal right breast External genitalia: Normal external genitalia appropriate for age. No labial lesion. Bladder: No tenderness. Normal bladder Vagina:Normal vagina. No lesion inspected. No abnormal vaginal discharge found. No lesions in thevagina. Cervix: Normal cervix. No lesion. No tenderness and no discharge present. Red tissue protruding through cervical os, possible polyp. Area of whiteness to surface of cervix at 11 o'clock Uterus: Uterus is normal size, normal position and non-tender. Normal uterus Adnexa: Right adnexa tenderness. Left adnexa without tenderness. Normal left adnexa and normal rightadnexa Assessment/Plan 1. Well woman exam CBE performed, educated patient regarding self breast awareness. SBE monthly. Patient advised mammograms to begin at age 40 Encourage green leafy vegetables, lean meats and fruit in diet. Avoid fatty, fried, sugary foods. Increase H2O intake (1/2 body weight in ozs). Exercise 30 minutes daily x 7 days/week as tolerated. 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 - PAP Smear-Liquid Based - HIGH RISK HPV-THIN PREP 2. History of female sterilization S/p Essure, did not have f/u HSG 3. Screen for STD (sexually transmitted disease) Reviewed safe sex practices - GC & CHLAMYDIA AMPLIFIED ASSAY - HIV 1/2 AG-AB WITH REFLEX - GALV ONLY - SYPHILIS IGG/IGM 4. Abnormal uterine bleeding UPT negative F/u in 4 weeks, if unresolved consider referral for EMB - POCT TEST - CBC WITH DIFF 5. Pain pelvic Recommend OTC NSAIDs Discussed imaging, consider at follow up - POCT TEST 6. Abnormal appearance of cervix Referred to dysplasia clinic - CONSULT/REFERRAL ARCHIVIST POLITICAL HISTORY Dysplasia Clinic Return to clinic in 52 weeks. Discussed treatment options. Medications as ordered. Reviewed patient instructions and provided printed copy. This visit did not involve counseling and coordination that comprised more than 50% of the visit time. Cecelia Gonsalves LVN - 02/11/2020 1:00 PM CDT34 year old presented to the clinic for WWE. 1) Previous BCM:essure-done in 2013 2) Desired BCM:essure 3) LMP:01/04/2020 4) Last [place]:02/09/2020 5) Last Pap:2013 Results:negative per patient 6) Tdap in last 10 years?unknown HPV?no 7) C/O Cycle lasting 3 weeks, pain with intercourse, pain to lower right abdomen 8) Patient denies history of physical, emotional, or sexual abuse. Patient states she currently feels safe at home. documented in this encounter Plan of Treatment Date Type Specialty Care Team Description 02/24/2020 Office Visit OB Satellites 3, [facility] Fc Room 03/03/2020 Office Visit OB Satellites Res-Colpo/Leep, [facility] Name Type Priority Associated Diagnoses Date/Ti me PAP Smear-Liquid Based LAB Routine Well woman exam 2:20 PM CDT HIGH RISK HPV-THIN PREP LAB Routine Well woman exam 1 2:20 PM CDT GC & CHLAMYDIA LAB Routine Screen for STD (sexually 1 2:20 PM CDT AMPLIFIED ASSAY transmitted disease) HIV 1/2 AG-AB WITH LAB Routine Screen for STD (sexual ly 02/11/2020 2:19 PM CDT REFLEX transmitted disease) GALV ONLY - SYPHILIS LAB Routine Screen for STD (sexu ally 02/11/2020 2:20 PM CDT IGG/IGM transmitted disease) CBC WITH DIFF LAB Routine Abnormal uterine bleeding 1 2:20 PM CDT Health Maintenance Due Date Last Done Comments PAP SMEAR 10/08/2008 INFLUENZA VACCINE (#1) 2020 Postponed from 12/15/2019 (Refused) DTaP,Tdap,and Td Vaccines (1 - 02/10/2021 P ostponed from 10/08/2006 Tdap) (Alternative Mick delines) Depression Screening 02/10/2021 02/11/2020 VARICELLA VACCINES (1 of 2 - 02/10/2021 Pos tponed from 10/08/1988 2-dose childhood series) (Altern ative Guidelines) PNEUMOCOCCAL 0-64 YEARS COMBINED Aged Out No longer eligible based on SERIES patient's age to complete this topic documented as of this encounter Procedures Procedure Name Priority Date/Time Associated Diagnosis Comme nts POCT TEST Routine 02/11/2020 Abnormal uterine Resu lts for this bleeding procedure are in the Pain pelvic results section . documented in this encounter Results POCT TEST (02/11/2020) Pathologist Sig nature POCT PREG Negative On board controls acceptable Yes with C Line POCT PREG LOT # POCT PREG TEST DATE Specimen Urine - URINE, CLEAN CATCH documented in this encounter Visit Diagnoses Diagnosis Well woman exam - Primary Routine general medical examination at a health care facility History of female sterilization Screen for STD (sexually transmitted dis ease) Screening examination for venereal disea se Abnormal uterine bleeding Unspecified disorder of menstruation and other abnormal bleeding from female genital tract Pain pelvic Unspecified symptom associated with fema le genital organs Abnormal appearance of cervix Unspecified noninflammatory disorder of cervix documented in this encounter Insurance Payer Benefit Plan Subscriber ID Effective Phone Address Typ e / Group Dates [facility] [id number] 2020-Pres [phone] Medicaid WOMEN ent [id number] [place] [address] documented as of this encounter Advance Directives Name Relationship Healthcare Agent Relationship Co mmunication Nissa Roy Other Health Care Agent
--- OUTSIDE RECORDS SUMMARY | 2020-05-01 09:08 | XMS REPORT | Summary of Care ---
:1985 Author Organization [facility] Address [address] [place] [address] Care Team Providers Name Role Phone Samantha Trevizo Primary Care Provider Reason for Visit Reason Comments No Show (DNKA) Encounter Details Date Type Department Care Team Description 03/03/2020 Telephone [facility] Noy Ríos FN P No Show (DNKA) [address] [address] [place] [address], [phone] [place] [address] [place] [address] Allergies Active Allergy Reactions Severity Noted Date Comments Hydrocodone Nausea and/or Vomiting 04/10/2017 documented as of this encounter (statuses as of 03/31/2020) Medications Medication Sig Dispensed Refills Start Date End Date Status cyanocobalamin, Inject as 0 Act celi vitamin B-12, (E LEARNING SPECIALIST-B12 directed. 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 A letter is being sent to the last known home address.dnka # 1 scheduled for 05/19/2020. documented in this encounter Plan of Treatment Date Type Specialty Care Team Description 05/19/2020 Office Visit OB Satellites 2, [facility] Fc Room 05/19/2020 Office Visit OB Satellites Res-Colpo/Leep, [facility] Health Maintenance Due Date Last Done Comments INFLUENZA VACCINE (#1) 2020 Postponed from 12/15/2019 (Refused) DTaP,Tdap,and Td Vaccines (1 - 02/10/2021 P ostponed from 10/08/2006 Tdap) (Alternative Mick delines) Depression Screening 02/10/2021 02/11/2020 VARICELLA VACCINES (1 of 2 - 02/10/2021 Pos tponed from 10/08/1988 2-dose childhood series) (Altern ative Guidelines) PAP SMEAR 02/10/2023 02/11/2020 PNEUMOCOCCAL 0-64 YEARS COMBINED Aged Out No longer eligible based on SERIES patient's age to complete this topic documented as of this encounter Results Not on filedocumented in this encounter Insurance Payer Benefit Plan Subscriber ID Effective Phone Address Typ e / Group Dates [facility] [id number] 2020-Pres [phone] Medicaid WOMEN ent [address] [place] [address] documented as of this encounter Advance Directives Name Relationship Healthcare Agent Relationship Co mmunication Nissa Roy Other Health Care Agent
--- OUTSIDE RECORDS SUMMARY | 2020-05-01 09:08 | XMS REPORT | Summary of Care ---
:1985 Author Organization [facility] Address [address] [place] [address] Care Team Providers Name Role Phone Samantha Trevizo Primary Care Provider Encounter Details Date Type Department Care Team Description 03/03/2020 Letter (Out) [facility] Noy Ríos FN P [address] [address] [place] [address], [facility] [place] [address] [place] [address] Allergies Active Allergy Reactions Severity Noted Date Comments Hydrocodone Nausea and/or Vomiting 04/10/2017 documented as of this encounter (statuses as of 03/31/2020) Medications Medication Sig Dispensed Refills Start Date End Date Status cyanocobalamin, Inject as 0 Act celi vitamin B-12, (MOBILITY DEVELOPER-B12 directed. INJECTION) documented as of this encounter [...] Description 05/19/2020 Office Visit OB Satellites 2, [facility] Fc Room 05/19/2020 Office Visit OB Satellites Res-Colpo/Leep, [facility] Health Maintenance Due Date Last Done [...] Address Typ e / Group Dates [facility] [id number] 2020-Pres [phone] Medicaid WOMEN ent [address] [place] [address] documented as of this encounter Advance Directives Name Relationship Healthcare Agent Relationship Co mmunication Nissa Roy Other Health Care Agent
--- OUTSIDE RECORDS SUMMARY | 2020-05-01 09:08 | XMS REPORT | Summary of Care ---
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 [address] [place] [address] Reason for Visit Reason Comments Well Woman Exam Encounter Details Date Type Department Care Team Description 02/11/2020 Office Visit [facility]- Angelica Gaviria Wel l woman exam (Primary Dx); [facility] History of female sterilization; [address] Screen for STD (sexually transmitted dis ease); Street [address] Abnormal uterine bleeding; [place] [phone] Pain pelvic; [address] Abnormal appearance of cervix [phone] Allergies Active Allergy Reactions Severity Noted Date Comments Hydrocodone Nausea and/or Vomiting 04/10/2017 documented as of this encounter (statuses as of 02/11/2020) Medications Medication Sig Dispensed Refills Start Date End Date Status cyanocobalamin, Inject as 0 Act celi vitamin B-12, directed. (SCHOOL COORDINATOR-B12 INJECTION) cefpodoxime 200 mg Take 1 tablet [...] This exam may be done by a analytical research program manager, family healthcare provider, nurse practitioner, nurse clinical exercise specialist, or specially trained nurse. Yearly breast exams [...] Guidelines for having clinical breast exams The [employer] College of Obstetricians and Gynecologists recommends that [...] provider about what is best for you. Tripl last reviewed this educational content on 07/15/201919999853-8349 The [employer]. All rights reserved. This information is not [...] breast self-examination (BSE). These experts include the [employer] and the [employer] Congress of Obstetricians and Gynecologists. Some experts [...] benign. This means they are not cancer. Tripl last reviewed this educational content on 08/14/201919999095-2028 The [employer]. All rights reserved. This information is not [...] once as part of routine health care. Tr[employer]ils last reviewed this educational content on 01/13/201719999329-9712 The [employer]. All rights reserved. This information is not [...] can make now to protect your future. Tripl last reviewed this educational content on 03/15/201819990066-0139 The [employer]. [address] [place] [address], [place] [address]. All rights reserved. This information is not [...] her child during , childbirth, and . Tripl last reviewed this educational content on 09/13/201819990863-8023 The [employer]. [address] [place] [address], [place] [address]. All rights reserved. This information is not [...] cilantro, cinnamon, cumin, paprika, pepper, and yang. Tripl last reviewed this educational content on 10/14/201919996502-2953 The [employer]. All rights reserved. This information is not [...] seafood when possible. Purchase low-sodium, reduced-sodium, or qh-nfpy-wnyof food products at the store. And don't [...] and drink water or other unsweetened beverages. [employer]pl last reviewed this educational content on 09/14/201919999682-8954 The [employer]. All rights reserved. This information is not [...] file Gets together: Not on file Attends nondenominational service: Not on file Active member of [...] and mental health on future pregnancies and/or intermodal customer service health. - PAP Smear-Liquid Based - HIGH [...] cervix Referred to dysplasia clinic - CONSULT/REFERRAL ELECTRON BEAM MACHINE WELDER SETTER Dysplasia Clinic Return to clinic in 52 [...] 2) Desired BCM:essure 3) LMP:01/04/2020 4) Last [place]:02/09/2020 5) Last Pap:2013 Results:negative per patient 6) [...] Description 02/24/2020 Office Visit OB Satellites 3, [facility]-chp Fc Room 03/03/2020 Office Visit OB Satellites Res-Colpo/Leep, [facility] Name Type Priority Associated Diagnoses [...] Address Typ e / Group Dates [facility] [id number] 2020-Pres [phone] Medicaid WOMEN ent [id number] [place] [address] documented as of this encounter Advance Directives Name Relationship Healthcare Agent Relationship Co mmunication Nissa Roy Other Health Care Agent
--- NOTE | 2020-05-01 10:02 | EDPHYS ---
Physician Documentation [facility] Name: Genesis Martel Age: 34 yrs Sex: Female : 1985 Arrival Date: 05/01/2020 Time: 09:07 Bed 2 Private MD: ED Physician Jimbo Rasmussen HPI: 05/01 09:40 This 34 yrs old Female presents to ER via Ambulatory with complaints of Arm ma2 Pain, Neck Pain, >24Hrs Old. 09:40 The patient or guardian complains of decreased range of motion, pain. The complaints ma2 affect the anterior aspect of left shoulder. Onset: The symptoms/episode began/occurred gradually, 3 day(s) ago. Associated signs and symptoms: Pertinent negatives: fever, numbness, tingling, vomiting. Severity of symptoms: At their worst the symptoms were moderate, in the emergency department the symptoms are unchanged. 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 - Social history:: Smoking status: Patient denies any tobacco usage or history of. - Family history:: not pertinent. ROS: 09:40 Constitutional: Negative for fever, chills, and weight loss. ma2 09:40 All other systems are negative. Exam: 09:40 Constitutional: This is a well developed, well nourished patient who is awake, alert, ma2 and in no acute distress. Head/Face: Normocephalic, atraumatic. Eyes: Pupils equal round and reactive to light, extra-ocular motions intact. Lids and lashes normal. Conjunctiva and sclera are non-icteric and not injected. Cornea within normal limits. Periorbital areas with no swelling, redness, or edema. ENT: Nares patent. No nasal discharge, no septal abnormalities noted. Tympanic membranes are normal and external auditory canals are clear. Oropharynx with no redness, swelling, or masses, exudates, or evidence of obstruction, uvula midline. Mucous membranes moist. Neck: Trachea midline, no thyromegaly or masses palpated, and no cervical lymphadenopathy. Supple, full range of motion without nuchal rigidity, or vertebral point tenderness. No Meningismus. Chest/axilla: Normal chest wall appearance and motion. Nontender with no deformity. No lesions are appreciated. Cardiovascular: Regular rate and rhythm with a normal S1 and S2. No gallops, murmurs, or rubs. Normal PMI, no JVD. No pulse deficits. Respiratory: Lungs have equal breath sounds bilaterally, clear to auscultation and percussion. No rales, rhonchi or wheezes noted. No increased work of breathing, no retractions or nasal flaring. Abdomen/GI: Soft, non-tender, with normal bowel sounds. No distension or tympany. No guarding or rebound. No evidence of tenderness throughout. Back: No spinal tenderness. No costovertebral tenderness. Full range of motion. Skin: Warm, dry with normal turgor. Normal color with no rashes, no lesions, and no evidence of cellulitis. MS/ Extremity: Pulses equal, no cyanosis. Neurovascular intact. left shoulder is mildly tender anteriorly, skin is wnl, no effusion no redness no warmth.. Full, normal range of motion Neuro: Awake and alert, GCS 15, oriented to person, place, time, and situation. Cranial nerves II-XII grossly intact. Motor strength 5/5 in all extremities. Sensory grossly intact. Cerebellar exam normal. Normal gait. Vital Signs: 09:12 BP 136 / 78; Pulse 90; Resp 16; Temp 97.8; Pulse Ox 99% on R/A; Weight 63.5 kg; Height hb 5 ft. 1 in. (154.94 cm); Pain 10/10; 09:12 Body Mass Index 26.45 (63.50 kg, 154.94 cm) hb MDM: 09:18 Patient medically screened. ma2 09:40 Differential diagnosis: dislocation, closed fracture, contusion, abrasion, tendonitis. ma2 Data reviewed: vital signs, nurses notes. Counseling: I had a detailed discussion with the patient and/or guardian regarding: the historical points, exam findings, and any diagnostic results supporting the discharge/admit diagnosis, the presence of at least one elevated blood pressure reading (>120/80) during this emergency department visit, the need for outpatient follow up. Response to treatment: ptn declined pain medicine in er. 05/01 09:37 Order name: Shoulder Left (2 View) XRAY ma2 05/01 09:37 Order name: Sling; Complete Time: 09:50 ma2 Administered Medications: No medications were administered Disposition: 05/01/20 10:01 Discharged to Home. Impression: Pain in left shoulder. - Condition is Stable. - Discharge Instructions: Musculoskeletal Pain, Shoulder Pain, [id number], Form - Excuse from Work, School, or Physical Activity. - Prescriptions for Diclofenac Sodium 75 mg Oral Tablet Sustained Release - take 1 tablet by ORAL route 2 times per day; 30 tablet. Medrol (Nickolas) 4 mg Oral Tablets, Dose Pack - take 1 tablet by ORAL route as directed - follow package instructions; 1 packet. - Medication Reconciliation Form, Thank You Letter, Antibiotic Education, Prescription Opioid Use form. - Follow up: Private Physician; When: Tomorrow; Reason: Continuance of care. Signatures: Dispatcher [employer] Rachid Wan RN RN em Baxter, Heather, RN RN Jimbo Rasmussen MD MD ma2 Corrections: (The following items were deleted from the chart) 10: 10:01 05/01/2020 10:01 Discharged to Home. Impression: Pain in left shoulder. Condition em is Stable. Discharge Instructions: Shoulder Pain, [id number], Form - Excuse from Work, School, or Physical Activity, Musculoskeletal Pain. Prescriptions for Diclofenac Sodium 75 mg Oral Tablet Sustained Release - take 1 tablet by ORAL route 2 times per day; 30 tablet, Medrol (Nickolas) 4 mg Oral Tablets, Dose Pack - take 1 tablet by ORAL route as directed - follow package instructions; 1 packet. and Forms are Medication Reconciliation Form, Thank You Letter, Antibiotic Education, Prescription Opioid Use. Follow up: Private Physician; When: Tomorrow; Reason: Continuance of care. ma2
--- NOTE | 2020-05-01 10:02 | ER ---
Nurse's Notes [facility] Name: Genesis Martel Age: 34 yrs Sex: Female : 1985 Arrival Date: 05/01/2020 Time: 09:07 Bed 2 Private MD: Diagnosis: Pain in left shoulder Presentation: 05/01 09:12 Chief complaint: Left sided neck pain that radiates to left arm x 2 weeks. Reports pain hb is getting worse. Coronavirus screen: At this time, the client does not indicate any symptoms associated with coronavirus-19. Ebola Screen: No symptoms or risks identified at this time. Initial Sepsis Screen: Does the patient meet any 2 criteria? No. Patient's initial sepsis screen is negative. Does the patient have a suspected source of infection? No. Patient's initial sepsis screen is negative. Risk Assessment: Do you want to hurt yourself or someone else? Patient reports no desire to harm self or others. Onset of symptoms was April 17, 2020. 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 - Social history:: Smoking status: Patient denies any tobacco usage or history of. - Family history:: not pertinent. Screenin:40 Abuse screen: Denies threats or abuse. Nutritional screening: No deficits noted. em Tuberculosis screening: No symptoms or risk factors identified. Fall Risk None identified. Assessment: 09:40 General: Appears in no apparent distress. comfortable, Behavior is calm, cooperative, em appropriate for age, Denies fever. Pain: Complains of pain in anterior aspect of left shoulder Pain currently is 10 out of 10 on a pain scale. Aggravated by increased activity, repositioning. Neuro: Level of Consciousness is awake, alert, obeys commands, Oriented to person, place, time, situation, Appropriate for age. Cardiovascular: Capillary refill < 3 seconds Patient's skin is warm and dry. Respiratory: Airway is patent Respiratory effort is even, unlabored, Respiratory pattern is regular, symmetrical. Derm: Skin is intact, is healthy with good turgor, Skin is pink, warm \T\ dry. Musculoskeletal: Capillary refill < 3 seconds, Range of motion: limited in left shoulder. Vital Signs: 09:12 BP 136 / 78; Pulse 90; Resp 16; Temp 97.8; Pulse Ox 99% on R/A; Weight 63.5 kg; Height hb 5 ft. 1 in. (154.94 cm); Pain 10/10; 09:12 Body Mass Index 26.45 (63.50 kg, 154.94 cm) hb ED Course: 09:07 Patient arrived in ED. rg4 09:08 Addie Perez, RN is Primary Nurse. jl7 09:14 Triage completed. hb 09:15 Arm band placed on. 09:18 Jimbo Rasmussen MD is Attending Physician. ma2 09:30 Primary Nurse role handed off by Addie Perez RN em 09:30 Rachid Waddell RN is Primary Nurse. em 09:40 Patient has correct armband on for positive identification. Bed in low position. Call em light in reach. Side rails up X2. 10:10 Shoulder Left (2 View) XRAY In Process Unspecified. EDMS 10:16 No provider procedures requiring assistance completed. Patient did not have IV access em during this emergency room visit. Administered Medications: No medications were administered Outcome: 10:01 Discharge ordered by . ma2 10:16 Discharged to home ambulatory. em 10:16 Condition: stable 10:16 Discharge instructions given to patient, Instructed on discharge instructions, follow up and referral plans. medication usage, Demonstrated understanding of instructions, follow-up care, medications, Prescriptions given X 2. 10:17 Patient left the ED. em Signatures: Dispatcher [employer] EDMS Rachid Waddell RN RN em Nargis Lauren RN RN hb Garcia, Rubi rg4 Addie Perez RN RN jl7 Jimbo Rasmussen MD MD ma2
--- NOTE | 2020-05-01 10:15 | RAD REPORT ---
EXAM DESCRIPTION: RAD - Shoulder Left 2 View - 05/01/2020 10:10 am CLINICAL HISTORY: PAIN COMPARISON: <Comparisons> TECHNIQUE: Internal and external rotation views of the left shoulder were obtained. FINDINGS: There is no fracture or dislocation. AC joint is normal in appearance. No acute or suspici ous findings. IMPRESSION: Negative two-view left shoulder examination for acute findings.
[2020-05-01 10:27] VITALS: BP 136/78; TEMP 97.8; O2SAT 99
== END 2020-05-01 10:17 | disposition home or self-care (01) ==
LOC: ER 09:05
DX: M25.512 Pain in left shoulder (principal); Z88.1 Allergy status to other antibiotic agents
CPT/HCPCS: 99283

== ENCOUNTER 2021-06-16 20:45 | Emergency (ER) | payer SELFPAY ==
[2011-10-03 08:25] VITALS: BP 106/61
--- OUTSIDE RECORDS SUMMARY | 2021-06-16 20:53 | XMS REPORT | Continuity of Care Document ---
:1985 Author Organization [facility] t Address [address] [place] [address] Care Team Providers Name Role Phone Jay Trevizo Primary Care Physician Doctor Unassigned, Name Attending Clinician Unavailable [place] RHODESP Attending Clinician Everette COX, N Attending Clinician Jerri HUBBARD Attending Clinician Unavailable Payers Payer Name Policy Type Policy Effective Date Expiration Date Sour ce Number [place] [id number] 2020 [facility] 00:00:00 [facility] [id number] Branch [phone] [place] [id number] caid Advance Directives Directive Decision Effective Termination Comments Source Date Date Healthcare Agents on N/A Univ ersity FileNameRelationshipHealthcare of [place] Agent Medical RelationshipCommunicationBu[facility] Centeri Branch RiggsOtherHealth Care [phone] (Mobile) Problems Condition Condition Condition Status Onset Resolution Last Treating Co mments Source Name Details Category Date Date Treatment Clinician Date History of History of Disease Active 2019-04 U nivers female female 0-29 ity of [place] [address] [place] [address] Abnormal Abnormal Disease Active 2019-04 Unive rs uterine uterine 0-29 ity of bleeding bleeding 00:00: [address] Pain Pain Disease Active 2019-04 Univers pelvic pelvic 0-29 ity of 00:00: [address] Bacterial Bacterial Disease Active 2016-04 Uni vers nephritis nephritis 06-11 ity of 00:00: [place] 00 Medical Branch Allergies, Adverse Reactions, Alerts Allergy Allergy Status Severity Reaction(s) Onset Inactive Treating Comm ents Source Name Type Date Date Clinician Hydrocod Propensi Active Nausea 2016-04 Univer s one ty to and/or 06-11 ity of adverse Vomiting 00:00: [place] reaction 00 Medical s Branch HYDROCOD DRUG Active N/V 2016-04 Univers ONE INGREDI 06-11 ity of 00:00: [place] 00 Medical Branch Social History Social Habit Start Date Stop Date Quantity Comments Source History of Smoker University of tobacco use [facility] Tobacco use and 2020-02-11 2020-02-11 Never used Universit y of exposure 00:00:00 00:00:00 [facility] Alcohol Comment 2020-02-11 2020-02-11 SOCIAL Universit y of 00:00:00 00:00:00 [facility] Alcohol intake 2020-02-11 2020-02-11 Current drinker Unive rsity of 00:00:00 00:00:00 of alcohol [facility] (finding) [place] Sex Ass[birth year] Universit y of 00:00:00 00:00:00 [facility] Smoking Status Start Date Stop Date Source Former smoker 2020-02-11 00:00:00 2020-02-11 00:00:00 Universi ty of [facility] Medications Ordered Filled Start Stop Current Ordering Indication Dosage Frequency Signature Comments Components Source Medication Medication Date Date Medication? Clinician (SIG) Name Name cyanocobala 2019-04 Yes Inject as Univers min, 0-29 directed. ity of vitamin 18:33: [place] B-12, 12 Medical (COPPER PLATE PRINTER-B12 Branch INJECTION) cyanocobala 2019-04 Yes Inject as Univers min, 0-29 directed. ity of vitamin 18:33: [place] B-12, 12 Medical (COPPER PLATE PRINTER-B12 Branch INJECTION) cyanocobala 2019-04 Yes Inject as Univers min, 0-29 directed. ity of vitamin 18:33: [place] B-12, 12 Medical (COPPER PLATE PRINTER-B12 Branch INJECTION) cyanocobala 2019-04 Yes Inject as Univers min, 0-29 directed. ity of vitamin 18:33: [place] B-12, 12 Medical (COPPER PLATE PRINTER-B12 Branch INJECTION) cyanocobala 2019-04 Yes Inject as Univers min, 0-29 directed. ity of vitamin 18:33: [place] B-12, 12 Medical (COPPER PLATE PRINTER-B12 Branch INJECTION) cyanocobala 2019-04 Yes Inject as Univers min, 0-29 directed. ity of vitamin 18:33: [place] B-12, 12 Medical (COPPER PLATE PRINTER-B12 Branch INJECTION) cyanocobala 2019-04 Yes Inject as Univers min, 0-29 directed. ity of vitamin 18:33: [place] B-12, 12 Medical (COPPER PLATE PRINTER-B12 Branch INJECTION) cyanocobala 2019-04 Yes Inject as Univers min, 0-29 directed. ity of vitamin 18:33: [place] B-12, 12 Medical (COPPER PLATE PRINTER-B12 Branch INJECTION) cyanocobala 2019-04 Yes Inject as Univers min, 0-29 directed. ity of vitamin 18:33: [place] B-12, 12 Medical (COPPER PLATE PRINTER-B12 Branch INJECTION) cyanocobala 2019-04 Yes Inject as Univers min, 0-29 directed. ity of vitamin 18:33: [place] B-12, 12 Medical (COPPER PLATE PRINTER-B12 Branch INJECTION) cefpodoxime 2016-04 Yes 200mg Take 1 Uni vers 200 mg 2-29 tablet by ity of tablet 00:00: mouth 2 [place] 00 (two) Medical times Branch daily. cefpodoxime 2016-04- No 200mg Take 1 Un john 200 mg 2-29 10-29 tablet by ity of tablet 00:00: 00:00 mouth 2 [place] 00 :00 (two) Medical times Branch daily. cefpodoxime 2016-04- No 200mg Take 1 Un john 200 mg 2-29 10-29 tablet by ity of tablet 00:00: 00:00 mouth 2 [place] 00 :00 (two) Medical times Branch daily. traMADOL 50 2016-04 Yes 50mg Take 1 Univ ers mg tablet 2-28 tablet by ity o f 00:00: mouth [place] 00 every 6 Medical (six) Branch hours as needed for Pain (scale 4-6) or Pain (scale 7-10). traMADOL 50 2016-04 2020- No 50mg Take 1 Uni vers mg tablet 2-28 10-29 tablet by ity of 00:00: 00:00 mouth [place] 00 :00 every 6 Medical (six) Branch hours as needed for Pain (scale 4-6) or Pain (scale 7-10). traMADOL 50 2016-04 50mg Take 1 Uni vers mg tablet 06-12 tablet by ity of 00:00: 00:00 [place] 00 :00 every 6 Medical (six) Branch hours as needed for Pain (scale 4-6) or Pain (scale 7-10). Vital Signs Vital Name Observation Time Observation Value Comments Source Systolic blood 2020-02-11 18:30:00 102 mm[Hg] Univer sity of pressure [facility] Diastolic blood 2020-02-11 18:30:00 67 mm[Hg] Unive rsity of [facility] Heart rate 2020-02-11 18:30:00 83 /min Universi ty of [facility] Body temperature 2020-02-11 18:30:00 36.28 [facility] Respiratory rate 2020-02-11 18:30:00 18 /min [facility] ersity [facility] [place] [facility] Body height 2020-02-11 18:30:00 154.9 cm Universi ty of [facility] Body weight 2020-02-11 18:30:00 65.403 kg Universi ty of [facility] BMI 2020-02-11 18:30:00 27.24 kg/m2 Universi ty [facility] [place] [facility] Systolic blood 2020-02-11 18:30:00 102 mm[Hg] Univer sity of [facility] Diastolic blood 2020-02-11 18:30:00 67 mm[Hg] Unive rsity of [facility] Heart rate 2020-02-11 18:30:00 83 /min Universi ty [facility] [place] [facility] Body temperature 2020-02-11 18:30:00 36.28 Fabiana [facility] Respiratory rate 2020-02-11 18:30:00 18 /min [facility] ersity [facility] [place] [facility] Body height 2020-02-11 18:30:00 154.9 cm Universi ty of [facility] Body weight 2020-02-11 18:30:00 65.403 kg Universi ty of [facility] BMI 2020-02-11 18:30:00 27.24 kg/m2 Universi ty [facility] [place] [facility] Procedures Procedure Date / Time Performing Clinician Source Performed PATIENT CORRESPONDENCE 2020-08-18 05:01:00 Doctor Unassigned, [facility] [place] (LETTERS, USPS [place] [facility] DOCUMENTATION) PATIENT CORRESPONDENCE 2020-08-18 05:01:00 [facility], [facility] (LETTERS, USPS [place] [facility] DOCUMENTATION) NOTICE OF PRIVACY 2020-02-11 17:52:50 Doctor Sharifa, [facility] PRACTICES [place] [facility] POCT TEST 2020-02-11 00:00:00 Aris Hubbard [facility] [place] [facility] Plan of Care Planned Activity Planned Date Details Comments Source Future Scheduled 2023-02-10 Screening for University of Test 00:00:00 malignant neoplasm [place] [facility] ical of cervix Branch (procedure) [code = 046916557] Future Scheduled 2021-02-10 Depression University of Test 00:00:00 screening [place] [facility] (procedure) [code Branch = [id number]] Future Scheduled 2021-02-10 VARICELLA VACCINES Postponed from Uni versity of Test 00:00:00 (1 of 2 - 2-dose 10/08/1988 [place] [facility] childhood series) (Alternative Branch [code = VARICELLA Guidelines) VACCINES (1 of 2 - 2-dose childhood series)] Future Scheduled 2021-02-10 DTaP,Tdap,and Td Postponed from Unive rsity of Test 00:00:00 Vaccines ( - 10/08/2006 [facility] Tdap) [code = (Alternative Branch DTaP,Tdap,and Td Guidelines) Vaccines (1 - Tdap)] Future Scheduled 2020-12-14 INFLUENZA VACCINE Univer sity of Test 00:00:00 (Season Ended) [place] [facility] [code = INFLUENZA Branch VACCINE (Season Ended)] Future Scheduled 2005-10-08 Hepatitis C University of Test 00:00:00 screening [place] [facility] (procedure) [code Branch = [id number]] Future Scheduled 2003 SARS-CoV-2 University of Test 00:00:00 (COVID-19) Vaccine [place] [facility] ical (1) [code = Branch SARS-CoV-2 (COVID-19) Vaccine (1)] Encounters Start End Encounter Admission Attending Care Care Encounter Source Date/Time Date/Time Type Type Clinicians Facility Department ID 2020-08-18 2020-08-18 Orders Doctor FRITZ [id number] Univers 00:00:00 00:00:00 Only JOE [place] [id number] ity of [place] [facility] [id number] Miguelangel as [phone] [place] [id number] Branch 2020-08-01 2020-08-01 Case ZACH Ríos [id number] Univers 00:00:00 00:00:[address] [facility] [id number] ity of [id number] [id number] [address] 2020-07-19 2020-07-19 Outpatient R [facility] [id number] Univers 10:00:00 10:00:00 [id number] ity [facility] [place] [facility] 2020-07-19 2020-07-19 Outpatient R [facility] [id number] Univers 10:00:00 10:00:00 ity [facility] [place] [facility] 2020-07-19 2020-07-19 Telephone ZACH Ríos [id number] Univers 00:00:00 00:00:00 [facility] [id number] i ty of [id number] [id number] [address] 2020-05-19 2020-05-19 Outpatient [facility] [id number] Univers 10:30:00 10:30:00 [id number] ity [facility] [place] [facility] 2020-05-19 2020-05-19 Outpatient R [facility] [id number] Univers 10:00:00 10:00:00 ity [facility] [place] [facility] 2020-05-19 2020-05-19 Telephone SHARAD Ríos [id number] Univers 00:00:00 00:00:00 [facility] [id number] i ty [id number] [id number] [address] 2020-05-19 2020-05-19 Letter ZACH Ríos [id number] Univers 00:00:00 00:00:00 (Out) [facility] [id number] i ty [id number] [id number] [address] 2020-03-03 2020-03-03 Outpatient [facility] [id number] Univers 11:00:00 11:00:00 [id number] ity [facility] [place] [facility] 2020-03-03 2020-03-03 Outpatient R [facility] [id number] Univers 11:00:00 11:00:00 ity of [facility] 2020-03-03 2020-03-03 Outpatient R [facility] [id number] Univers 10:30:00 10:30:00 ity [facility] [place] [facility] 2020-03-03 2020-03-03 Telephone [place] [facility] [id number] 00:00:00 00:00:00 [facility] [id number] CLINICS [id number] [id number] [facility] 2020-03-03 2020-03-03 Letter [place], [facility] [id number] 00:00:00 00:00:00 (Out) [facility] [id number] CLINICS [id number] [id number] [facility] 2020-03-03 2020-03-03 [facility] [id number] Univers 00:00:00 00:00:00 [facility] [id number] i ty [id number] [id number] [address] 2020-03-03 2020-03-03 Letter [place] [facility] [id number] Univers 00:00:00 00:00:00 (Out) [facility] [id number] i ty [id number] [id number] [address] 2020-02-24 2020-02-24 Outpatient R [facility] [id number] Univers 15:30:00 15:30:00 [id number] ity [facility] [place] [facility] 2020-02-24 2020-02-24 Outpatient R [facility] [id number] Univers 15:30:00 15:30:00 ity [facility] [place] [facility] 2020-02-24 2020-02-24 Outpatient R [facility] [id number] Univers 12:30:00 12:30[facility] 2020-02-11 2020-02-11 Office [facility] [id number] 12:57:49 14:29:44 Visit Aris Guthrie CORPORATE COORDINATOR 350.1.13.10 [facility] 4.2.7.2.686 MATERNAL [id number] & CHILD [address] [place] [address] 2020-02-11 2020-02-11 Office [facility] [id number] Univers 12:57:49 14:29:44 Visit Aris Guthrie CORPORATE COORDINATOR [id number] it y of [facility] [id number] Miguelangel as MATERNAL [id number] Med ical & CHILD [address] [place] [address] 2020-02-11 2020-02-11 Outpatient [facility] [id number] Univers 12:30:00 [facility]:30:00 [facility] 2020-02-11 2020-02-11 Orders Doctor CATRINA [id number] Univers 00:00:00 00:00:00 Only Unassigned, JOE 350.1.13.10 ity of [place] [facility] [id number] [place] as [id number] [address] Results Test Description Test Time Test Comments Results Result Comments Source POCT TEST 2020-02-11 19:00:00 Test Item Value Reference Range Interpretation Comme nts POCT PREG (test code = 1605) Negative On board controls acceptable with C Line (test code = 3574) Yes POCT PREG LOT # (test code = 3575) POCT PREG TEST DATE (test code = 3576) [id number] 19:00:00 Test Item Value Reference Range Interpretation Comments POCT PREG (test code = 1605) Negative On board controls acceptable with C Yes Line (test code = 3574) POCT PREG LOT # (test code = 3575) POCT PREG TEST DATE (test code = 3576) [facility]
[2021-06-16] MEDS ORDERED: IBUPROFEN 200 MG TAB PO ONE (22:09)
[2021-06-16] MEDS ORDERED: IBUPROFEN 400 MG TAB ONE (22:09)
[2021-06-16 22:30] LABS: SARS-COV-2 RT PCR NEGATIVE (NEGATIVE)
--- NOTE | 2021-06-16 22:53 | EDPHYS ---
Physician Documentation [facility] Name: Genesis Martel Age: 35 yrs Sex: Female : 1985 Arrival Date: 06/16/2021 Time: 20:45 Bed 14 Private MD: ED Physician Ji Mejias HPI: 06/16 21:27 This 35 yrs old Female presents to ER via Ambulatory with complaints of Sore Throat. mh7 21:27 The patient presents with sore throat. The patient describes throat pain as mh7 intermittent. Onset: The symptoms/episode began/occurred 2 day(s) ago. Severity of symptoms: At their worst the symptoms were moderate, yesterday, in the emergency department the symptoms have improved, moderately. Modifying factors: The symptoms are alleviated by over the counter medications, Tylenol, the symptoms are aggravated by swallowing, Patient's oral intake status: good The patient has had contact with sick daughter, at home. Associated signs and symptoms: Pertinent positives: cough, earache, rhinorrhea, Pertinent negatives chest pain, chills, diarrhea, fever, headache, nausea, shortness of breath, vomiting. 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 - Social history:: Smoking status: Patient denies any tobacco usage or history of. Patient uses alcohol, occasionally. ROS: 21:27 Constitutional: Negative for fever, chills, and weight loss, Eyes: Negative for injury, mh7 pain, redness, and discharge, Neck: Negative for injury, pain, and swelling, Cardiovascular: Negative for chest pain, palpitations, and edema. 21:27 Abdomen/GI: Negative for abdominal pain, nausea, vomiting, diarrhea, and constipation, Back: Negative for injury and pain, : Negative for injury, bleeding, discharge, and swelling, MS/Extremity: Negative for injury and deformity, Skin: Negative for injury, rash, and discoloration, Neuro: Negative for headache, weakness, numbness, tingling, and seizure, Psych: Negative for depression, anxiety, suicide ideation, homicidal ideation, and hallucinations, Allergy/Immunology: Negative for hives, rash, and allergies, Endocrine: Negative for neck swelling, polydipsia, polyuria, polyphagia, and marked weight changes, Hematologic/Lymphatic: Negative for swollen nodes, abnormal bleeding, and unusual bruising. Exam: 21:27 Constitutional: This is a well developed, well nourished patient who is awake, alert, mh7 and in no acute distress. Head/Face: Normocephalic, atraumatic. Eyes: Pupils equal round and reactive to light, extra-ocular motions intact. Lids and lashes normal. Conjunctiva and sclera are non-icteric and not injected. Cornea within normal limits. Periorbital areas with no swelling, redness, or edema. 21:27 Respiratory: Lungs have equal breath sounds bilaterally, clear to auscultation and percussion. No rales, rhonchi or wheezes noted. No increased work of breathing, no retractions or nasal flaring. Abdomen/GI: Soft, non-tender, with normal bowel sounds. No distension or tympany. No guarding or rebound. No evidence of tenderness throughout. Back: No spinal tenderness. No costovertebral tenderness. Full range of motion. Skin: Warm, dry with normal turgor. Normal color with no rashes, no lesions, and no evidence of cellulitis. MS/ Extremity: Pulses equal, no cyanosis. Neurovascular intact. Full, normal range of motion. Neuro: Awake and alert, GCS 15, oriented to person, place, time, and situation. Cranial nerves II-XII grossly intact. Motor strength 5/5 in all extremities. Sensory grossly intact. Cerebellar exam normal. Normal gait. Psych: Awake, alert, with orientation to person, place and time. Behavior, mood, and affect are within normal limits. 21:27 ENT: External ear(s): are unremarkable, Ear canal(s): are normal, clear, TM's: are normal, Nose: is normal, Mouth: is normal, Posterior pharynx: Airway: normal, Tonsils: bilaterally enlarged, with erythema, with exudate, Uvula: normal, swelling, is not appreciated, erythema, that is mild, exudate, that is mild, peritonsillar mass, is not appreciated, pooling of secretions, is not appreciated, Dental exam: normal, Voice: is normal. 21:27 Neck: External neck: is normal, C-spine: appears grossly normal, no vertebral tenderness, no crepitus, Thyroid: appears normal, Trachea: is midline with no obvious abnormalities, ROM/movement: is normal, is supple, Lymph nodes: lymphadenopathy is appreciated, anterior cervical nodes. Vital Signs: 21:04 BP 112 / 72; Pulse 100; Resp 18 S; Temp 97.3(TE); Pulse Ox 100% on R/A; Weight 66.68 kg lg3 (R); Height 5 ft. 1 in. (154.94 cm) (R); Pain 9/10; 21:10 BP 108 / 69 RA Sitting (auto/reg); Pulse 92 MON; Resp 17 S; Temp 98.9(O); Pulse Ox 99% sv1 on R/A; Pain 5/10; 21:10 BP 109 / 79 RA Sitting (auto/reg); Pulse 92 MON; Resp 16 S; Temp 98.5; Pulse Ox 97% on sv1 R/A; 21:04 Body Mass Index 27.78 (66.68 kg, 154.94 cm) lg3 MDM: 22:51 Differential diagnosis: cocksackie virus, echovirus infection, gracy-duenas virus, mh7 group A strep tonsillitis, peritonsillar abscess pharyngitis, retropharyngeal abcess tonsillitis, upper respiratory infection, uvulitis, viral syndrome. Data reviewed: vital signs, nurses notes, lab test result(s), Flu: negative Covid negative, strep positive. Data interpreted: Pulse oximetry: on room air is 100 %. Interpretation: normal. Counseling: I had a detailed discussion with the patient and/or guardian regarding: the historical points, exam findings, and any diagnostic results supporting the discharge/admit diagnosis, lab results, the need for outpatient follow up, to return to the emergency department if symptoms worsen or persist or if there are any questions or concerns that arise at home. Response to treatment: the patient's symptoms have markedly improved after treatment, patient is well hydrated. Tolerating p.o. intake without difficulty. 22:53 Patient medically screened. [facility] 06/16 21:25 Order name: Rapid Strep; Complete Time: 22:48 [facility] 06/16 21:25 Order name: COVID-19/FLU A+B (Document "Date of Onset" if Symptomatic); Complete Time: [facility] 22:48 Administered Medications: 22:11 Drug: Motrin (ibuprofen) 600 mg Route: PO; sv1 23:06 Follow up: Response: No adverse reaction sv1 23:01 Drug: Zithromax (azithromycin) 500 mg Route: PO; sv1 23:06 Follow up: Response: No adverse reaction sv1 Disposition Summary: 06/16/21 22:53 Discharge Ordered Location: Home [facility] Problem: new [facility] Symptoms: have improved [facility] Condition: Stable [facility] Diagnosis - Streptococcal pharyngitis [facility] Followup: [facility] - With: Private Physician - When: 1 - 2 days - Reason: Worsening of condition, Recheck today's complaints, Continuance of care, Re-evaluation by your physician Discharge Instructions: - Discharge Summary Sheet [facility] - Strep Throat, Adult, [id number]-Wtzi [facility] Forms: - Medication Reconciliation Form [facility] - Thank You Letter [facility] - Antibiotic Education [facility] - Prescription Opioid Use [facility] Prescriptions: - Ibuprofen 600 mg Oral Tablet - take 1 tablet by ORAL route every 8 hours As needed take with food; 15 tablet; [facility] Refills: 0, Product Selection Permitted - Zithromax Z-Nickolas 250 mg Oral Tablet - take 1 tablet by ORAL route as directed for 5 days Day 1 - take two (2) tablets [facility] one time. 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
--- NOTE | 2021-06-16 22:53 | ER ---
Nurse's Notes [facility] Name: Genesis Martel Age: 35 yrs Sex: Female : 1985 Arrival Date: 06/16/2021 Time: 20:45 Bed 14 Private MD: Diagnosis: Streptococcal pharyngitis Presentation: 06/16 21:04 Chief complaint: Patient states: sore throat starting yesterday morning. gradually lg3 getting worse. states to have purulent pockets in back of throat and pain into neck. daughter just tested positive for strep on Saturday. Coronavirus screen: Client denies travel out of the [place] in the last 14 days. At this time, the client does not indicate any symptoms associated with coronavirus-19. Ebola Screen: No symptoms or risks identified at this time. Initial Sepsis Screen: Does the patient meet any 2 criteria? No. Patient's initial sepsis screen is negative. Does the patient have a suspected source of infection? No. Patient's initial sepsis screen is negative. Risk Assessment: Do you want to hurt yourself or someone else? Patient reports no desire to harm self or others. Onset of symptoms was May 17, 2021. 21:04 Method Of Arrival: Ambulatory lg3 21:04 Acuity: DREW 4 lg3 Triage Assessment: 21:08 General: Appears in no apparent distress. comfortable, Behavior is calm, cooperative. lg3 Pain: Complains of pain in throat Pain currently is 9 out of 10 on a pain scale. EENT: Throat is reddened has patchy exudate Reports difficulty swallowing nasal congestion pain. Neuro: No deficits noted. Level of Consciousness is awake, alert, obeys commands, Oriented to person, place, time, situation. Cardiovascular: No deficits noted. Denies chest pain, lightheadedness, shortness of breath. Respiratory: No deficits noted. Airway is patent Trachea midline Respiratory effort is even, unlabored, Respiratory pattern is regular, symmetrical. GI: No deficits noted. No signs and/or symptoms were reported involving the gastrointestinal system. : No deficits noted. No signs and/or symptoms were reported regarding the genitourinary system. Derm: No deficits noted. No signs and/or symptoms reported regarding the dermatologic system. Skin is intact, is healthy with good turgor, Skin is dry. Musculoskeletal: No deficits noted. No signs and/or symptoms reported regarding the musculoskeletal system. Circulation, motion, and sensation intact. Range of motion: intact in all extremities. 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 - Social history:: Smoking status: Patient denies any tobacco usage or history of. Patient uses alcohol, occasionally. Screenin:11 Abuse screen: Denies threats or abuse. Denies injuries from another. Nutritional lg3 screening: No deficits noted. Tuberculosis screening: No symptoms or risk factors identified. Fall Risk None identified. Assessment: 21:11 Respiratory: Airway is patent Trachea midline Respiratory effort is even, unlabored, lg3 Respiratory pattern is regular, symmetrical, Breath sounds are clear bilaterally. Vital Signs: 21:04 BP 112 / 72; Pulse 100; Resp 18 S; Temp 97.3(TE); Pulse Ox 100% on R/A; Weight 66.68 kg lg3 (R); Height 5 ft. 1 in. (154.94 cm) (R); Pain 9/10; 21:10 BP 108 / 69 RA Sitting (auto/reg); Pulse 92 MON; Resp 17 S; Temp 98.9(O); Pulse Ox 99% sv1 on R/A; Pain 5/10; 21:10 BP 109 / 79 RA Sitting (auto/reg); Pulse 92 MON; Resp 16 S; Temp 98.5; Pulse Ox 97% on sv1 R/A; 21:04 Body Mass Index 27.78 (66.68 kg, 154.94 cm) lg3 ED Course: 20:45 Patient arrived in ED. ja2 21:08 Triage completed. lg3 21:08 Arm band placed on left wrist. lg3 21:10 Patient has correct armband on for positive identification. Bed in low position. Call sv1 light in reach. Side rails up X 1. 21:10 No provider procedures requiring assistance completed. Patient did not have IV access sv1 during this emergency room visit. 21:14 Ji Mejias MD is Attending Physician. [facility] 21:33 Villicano, Noe, RN is Primary Nurse. sv1 21:52 COVID-19/FLU A+B (Document "Date of Onset" if Symptomatic) Sent. sv1 21:52 Rapid Strep Sent. sv1 Administered Medications: 22:11 Drug: Motrin (ibuprofen) 600 mg Route: PO; sv1 23:06 Follow up: Response: No adverse reaction sv1 23:01 Drug: Zithromax (azithromycin) 500 mg Route: PO; sv1 23:06 Follow up: Response: No adverse reaction sv1 Outcome: 21:10 Discharged to home sv1 21:10 Condition: improved 21:10 Discharge instructions given to patient. 22:53 Discharge ordered by . gonzalez 23:08 Patient left the ED. sv1 Signatures: Renata Donis RN RN 3 Ji Mejias MD MD 7 Peyton Solorio Steven, JOHN LOPEZ sv1
[2021-06-16] MEDS ORDERED: AZITHROMYCIN 250 MG TAB ONE (22:58)
== END 2021-06-16 23:08 | disposition home or self-care (01) ==
LOC: ER 20:45
DX: J02.0 Streptococcal pharyngitis (principal); Z20.822 Contact with and (suspected) exposure to COVID-19; Z88.1 Allergy status to other antibiotic agents
CPT/HCPCS: 0240U; 87081; 99283

== ENCOUNTER 2022-05-30 09:44 | Emergency (ER) | payer SELFPAY ==
--- OUTSIDE RECORDS SUMMARY | 2022-05-30 09:48 | XMS REPORT | Continuity of Care Document ---
:1985 Author Organization [facility] t Address [address] [place] [address] Care Team Providers Name Role Phone Samantha Trevizo Primary Care Physician Doctor Unassigned, [place] Attending Clinician Unavailable Noy Gar Attending Clinician Aris Esparza Attending Clinician ARIS HUBBARD Attending Clinician Unavailable Payers Payer Name Policy Type Policy Effective Date Expiration Date Sour ce Number [employer] [place] [id number] 2020 [facility] 00:00:00 [facility] [id number] Branch 51 [phone] [place] [id number] caid Problems Condition Condition Condition Status Onset Resolution Last Treating Co mments Source Name Details Category Date Date Treatment Clinician Date History of History of Disease Active 2019-04 U nivers female female 0-29 ity of [place]iz[place] [facility] Abnormal Abnormal Disease Active 2019-04 Unive rs uterine uterine 0-29 ity of bleeding bleeding 00:00: [address] Pain Pain Disease Active 2019-04 Univers pelvic pelvic 0-29 ity of 00:00: [address] Bacterial Bacterial Disease Active 2016-04 Uni vers nephritis nephritis 2-27 ity of 00:00: [address] Allergies, Adverse Reactions, Alerts Allergy Allergy Status [...] History of Smoker University of tobacco use [facility] Tobacco use and 2020-02-11 2020-02-11 Never used Universit y of exposure 00:00:00 00:00:00 [facility] Alcohol Comment 2020-02-11 2020-02-11 SOCIAL Universit y of 00:00:00 00:00:00 [facility] Alcohol intake 2020-02-11 2020-02-11 Current drinker Unive rsity of 00:00:00 00:00:00 of alcohol [facility] (finding) Branch Sex Assigned At [birth year] Universit y of 00:00:00 00:00:00 [facility] Smoking Status Start Date Stop Date Source Former smoker 2020-02-11 00:00:00 2020-02-11 00:00:00 Universi ty of [facility]ations Ordered Filled Start Stop Current Ordering Indication Dosage Frequency Signature Comments Components Source Medication Medication Date Date Medication? Clinician (SIG) Name Name cheyenne 2019-04 Yes Inject as U nivers min, 0-29 directed. ity of vitamin 18:33: [place] B-12, 12 Medical (SU[employer]INT[employer] HATCHERY-B12 Branch INJECTION) cyanocobala 2019-04 Yes Inject as U nivers min, 0-29 directed. ity of vitamin 18:33: [place] B-12, 12 Medical (SUPERINTENDENT FISH HATCHERY-B12 Branch INJECTION) cyanocobala 2019-04 Yes Inject as U nivers min, 0-29 directed. ity of vitamin 18:33: [place] B-12, 12 Medical (SUPERINTENDENT FISH HATCHERY-B12 Branch INJECTION) cyanocobala 2019-04 Yes Inject as U nivers min, 0-29 directed. ity of vitamin 18:33: [place] B-12, 12 Medical (SUPERINTENDENT FISH HATCHERY-B12 Branch INJECTION) cyanocobala 2019-04 Yes Inject as U nivers min, 0-29 directed. ity of vitamin 18:33: [place] B-12, 12 Medical (SUPERINTENDENT FISH HATCHERY-B12 Branch INJECTION) cyanocobala 2019-04 Yes Inject as U nivers min, 0-29 directed. ity of vitamin 18:33: [place] B-12, 12 Medical (SUPERINTENDENT FISH HATCHERY-B12 Branch INJECTION) cyanocobala 2019-04 Yes Inject as U nivers min, 0-29 directed. ity of vitamin 18:33: [place] B-12, 12 Medical (SUPERINTENDENT FISH HATCHERY-B12 Branch INJECTION) cyanocobala 2019-04 Yes Inject as U nivers min, 0-29 directed. ity of vitamin 18:33: [place] B-12, 12 Medical (SUPERINTENDENT FISH HATCHERY-B12 Branch INJECTION) cyanocobala 2019-04 Yes Inject as U nivers min, 0-29 directed. ity of vitamin 18:33: [place] B-12, 12 Medical (SUPERINTENDENT FISH HATCHERY-B12 Branch INJECTION) cyanocobala 2019-04 Yes Inject as U nivers min, 0-29 directed. ity of vitamin 18:33: [place] B-, 12 Medical (SUPERINTENDENT FISH HATCHERY-B12 Branch INJECTION) cefpodoxime 2016-04 Yes 200mg Take [...] 4-6) or Pain (scale 7-10). traMADOL 50 2016-04- No 50mg Take 1 Uni vers mg tablet 2-28 10-29 tablet by ity of 00:00: 00:00 mouth [place] 00 :00 every 6 Medical (six) Branch hours as needed for Pain (scale 4-6) or Pain (scale 7-10). traMADOL 50 2016-04- No 50mg Take 1 Uni vers mg tablet 06-12 tablet by ity of 00:00: 00:00 [facility] [place] 00 :00 every 6 Medical (six) Branch hours as needed for Pain (scale 4-6) or Pain (scale 7-10). Vital Signs Vital Name Observation Time Observation Value Comments Source Systolic blood 2020-02-11 18:30:00 102 mm[Hg] Univer sity of pressure [facility] Diastolic blood 2020-02-11 18:30:00 67 mm[Hg] Unive rsity of [facility] Heart rate 2020-02-11 18:30:00 83 /min Universi ty of [facility] Body temperature 2020-02-11 18:30:00 [facility].28 [facility] rate 2020-02-11 18:30:00 18 /min Univ ersity [facility] Body height 2020-02-11 18:30:00 154.9 cm Universi ty of [facility] Body weight 2020-02-11 18:30:00 65.403 kg Universi ty [facility] BMI 2020-02-11 18:30:00 27.24 kg/m2 Universi ty [facility] Branch Systolic blood 2020-02-11 18:30:00 102 mm[Hg] Univer sity of [facility] Diastolic blood 2020-02-11 18:30:00 67 mm[Hg] Unive rsity of [facility] Heart rate 2020-02-11 18:30:00 83 /min Universi ty of [facility] Body temperature 2020-02-11 18:30:00 36.28 [facility] Respiratory rate 2020-02-11 18:30:00 18 /min [facility] Body height 2020-02-11 18:30:00 154.9 cm Universi ty [facility] Body weight 2020-02-11 18:30:00 65.403 kg Universi ty [facility] Branch BMI 2020-02-11 18:30:00 27.24 kg/m2 Universi ty [facility] Branch Procedures Procedure Date / Time Performing Clinician Source Performed PATIENT CORRESPONDENCE 2020-08-18 05:01:00 [facility] [place] [facility] DOCUMENTATION) PATIENT CORRESPONDENCE 2020-08-18 05:01:00 Doctor Unassigned, Un iversity of [place] (LETTERS, USPS [place] [facility] DOCUMENTATION) NOTICE OF PRIVACY 2020-02-11 17:52:50 Doctor Sharifa, [facility] PRACTICES [place] [facility] POCT TEST 2020-02-11 00:00:00 [facility] Hubbard [facility] Plan of Care Planned Activity Planned Date Details Comments Source Future Scheduled 2023-02-10 Screening for University of Test 00:00:00 malignant neoplasm [place] [facility] ical of cervix Branch (procedure) [code = 517275680] Future Scheduled 2021-02-10 VARICELLA VACCINES Postponed from Uni versity of Test 00:00:00 (1 of 2 - 2-dose 10/08/1988 [place] [facility] childhood series) (Alternative Branch [code = VARICELLA Guidelines) VACCINES (1 of 2 - 2-dose childhood series)] Future Scheduled 2021-02-10 DTaP,Tdap,and Td Postponed from Unive rsity of Test 00:00:00 Vaccines ( - 10/08/2006 [facility] Tdap) [code = (Alternative Branch DTaP,Tdap,and Td Guidelines) Vaccines (1 - Tdap)] Future Scheduled 2021-02-10 Depression University of Test 00:00:00 screening [place] [facility] (procedure) [code Branch = [id number]] Future Scheduled 2020-12-14 INFLUENZA VACCINE Univer sity of Test 00:00:00 (Season Ended) [place] [facility] [code = INFLUENZA Branch VACCINE (Season Ended)] Future Scheduled 2005-10-08 Hepatitis C University of Test 00:00:00 screening [place] [facility] (procedure) [code Branch = [id number]] Future Scheduled 2003 SARS-CoV-2 University of Test 00:00:00 (COVID-19) Vaccine [place] [facility] ical (1) [code = Branch SARS-CoV-2 (COVID-19) Vaccine (1)] Encounters Start End Encounter Admission Attending Care Care Encounter Source Date/Time Date/Time Type Type Clinicians Facility Department ID 2020-08-18 2020-08-18 Orders Doctor FRITZ [id number] Univers 00:00:00 00:00:00 Only Unassigned, JOE [id number] ity of [place] [facility] [id number] Miguelangel as [phone] [facility] 009 Branch 2020-08-01 2020-08-01 Case ZACH RíosIT [id number] Univers 00:00:00 00:00:00 Management [facility] [id number] ity of [id number] [address] 2020-07-19 2020-07-19 Outpatient R [facility] [id number] Univers 10:00:00 10:00:00 ity [facility] 2020-07-19 2020-07-19 Telephone SHARAD Ríos [id number] Univers 00:00:00 00:00:00 [facility] [id number] i [id number] [address] 2020-05-19 2020-05-19 Outpatient R [facility] [id number] Univers 10:00:00 10:00:00 ity [facility] 2020-05-19 2020-05-19 Telephone SHARAD Ríos [id number] Univers 00:00:00 00:00:00 [facility] [id number] i ty [id number] [id number] [address] 2020-05-19 2020-05-19 Letter SHARAD Ríos [id number] Univers 00:00:00 00:00:00 (Out) [facility] [id number] i ty [id number] [id number] [address] 2020-03-03 2020-03-03 Outpatient R [facility] [id number] Univers 11:00:00 11:00:00 ity [facility] 2020-03-03 2020-03-03 Outpatient R [facility] [id number] Univers 10:30:00 10:30:00 ity [facility] 2020-03-03 2020-03-03 Letter SHARAD Ríos [id number] 00:00:00 00:00:00 (Out) [facility] [id number] CLINICS [id number] [facility] 2020-03-03 2020-03-03 [facility] [id number] 00:00:00 00:00:00 [facility] [id number] CLINICS [id number] [facility] 2020-03-03 2020-03-03 Telephone [facility] [id number] Univers 00:00:00 00:00:00 [facility] [id number] i ty [id number] [address] 2020-03-03 2020-03-03 [facility] [id number] Univers 00:00:00 00:00:00 (Out) [facility] [id number] i ty [id number] [id number] [address] 2020-02-24 2020-02-24 Outpatient R [facility] [id number] Univers 15:30:00 15:30:00 [facility] 2020-02-24 2020-02-24 Outpatient R [facility] [id number] Univers 12:30:00 12:30:00 [facility] 2020-02-11 2020-02-11 [facility] [id number] 12:57:49 14:29:44 Visit Aris Guthrie [employer] [employer] [id number] REGIONAL [id number] MATERNAL [id number] & CHILD [address] [place] [address] 2020-02-11 2020-02-11 [facility] [id number] Univers 12:57:49 14:29:44 Visit Aris Guthrie [employer] [id number] it y of REGIONAL [id number] Miguelangel as MATERNAL [id number] Med ical & CHILD [address] [place] [address] 2020-02-11 2020-02-11 Outpatient R HAYDEE [facility] [id number] Univers 12:30:00 12:30:00 ARIS del cid [facility] 2020-02-11 2020-02-11 Orders Doctor CATRINA [id number] Univers 00:00:00 00:00:00 Only Unassigned, JOE [id number] ity of [place] [facility] [id number] Miguelangel as [phone] [address] Results Test Description Test Time Test Comments Results Result Comments Source POCT TEST 2020-02-11 19:00:00 Test Item Value Reference Range Interpretation Comme nts POCT PREG (test code = 1605) Negative On board controls acceptable with C Line (test code = 3574) Yes POCT PREG LOT # (test code = 3575) POCT PREG TEST DATE (test code = 3576) [id number] 19:00:00 Test Item Value Reference Range Interpretation Comments POCT PREG (test code = 1605) Negative On board controls acceptable with C Yes Line (test code = 3574) POCT PREG LOT # (test code = 3575) POCT PREG TEST DATE (test code = 3576) [facility]
[2022-05-30 12:17] LABS: Urine Blood Trace-intact (Negative); Urine Glucose Negative (Negative); Urine Protein 1+ (Negative); Urine Specific Gravity 1.025 (1.005-1.030); Urine pH 6.5 (5.0-7.0)
[2022-05-30 12:53] LABS: Urine Bacteria 20-50 /HPF (<20); Urine Mucus 3+ /HPF (None Seen); Urine RBC <5 /HPF (None Seen)
--- NOTE | 2022-05-30 13:05 | EDPHYS ---
Physician Documentation [facility] Name: Genesis Martel Age: 36 yrs Sex: Female : 1985 Arrival Date: 05/30/2022 Time: 09:47 Bed DIS1 Private MD: ED Physician Jerod Fabian HPI: 05/30 13:01 This 36 yrs old Female presents to ER via Ambulatory with complaints of Low Back Pain, kb Urinary Problem. 13:02 The patient presents with flank pain, bilaterally, urinary symptoms, dysuria, kb frequency, vaginal bleeding that is spotting. Onset: The symptoms/episode began/occurred 5 day(s) ago. Modifying factors: The symptoms are alleviated by nothing, the symptoms are aggravated by urinating. Associated signs and symptoms: Pertinent positives: dysuria, urinary frequency, vaginal bleeding. Severity of symptoms: At their worst the symptoms were moderate, in the emergency department the symptoms are unchanged. The patient has not experienced similar symptoms in the past. The patient has not recently seen a physician. Historical: - Allergies: 10:12 Amoxicillin; ap3 - Home Meds: 10:12 None [Active]; ap3 - PMHx: 10:12 None; ap3 - Immunization history:: Client reports having NOT received the Covid vaccine. - Social history:: Smoking status: Patient denies any tobacco usage or history of. ROS: 13:00 Constitutional: Negative for fever, chills, and weight loss. kb 13:00 : Positive for urinary symptoms, flank pain, urinary frequency, burning with urination, vaginal bleeding. 13:00 All other systems are negative. Exam: 13:00 Constitutional: This is a well developed, well nourished patient who is awake, alert, kb and in no acute distress. Head/Face: Normocephalic, atraumatic. ENT: Moist Mucous membranes Cardiovascular: Regular rate and rhythm with a normal S1 and S2. No gallops, murmurs, or rubs. No pulse deficits. Respiratory: Respirations even and unlabored. No increased work of breathing. Talking in full sentences Abdomen/GI: Soft, non-tender. No distention Skin: Warm, dry with normal turgor. Normal color. MS/ Extremity: Pulses equal, no cyanosis. Neurovascular intact. Full, normal range of motion. Neuro: Awake and alert, GCS 15, oriented to person, place, time, and situation. Moves all extremities. Normal gait. Psych: Awake, alert, with orientation to person, place and time. Behavior, mood, and affect are within normal limits. 13:01 Back: CVA tenderness, that is mild, is noted bilaterally. Vital Signs: 10:11 Pulse 96; Resp 18; Pulse Ox 99% ; Weight 61.69 kg; Height 5 ft. 1 in. (154.94 cm); ap3 10:11 Body Mass Index 25.70 (61.69 kg, 154.94 cm) ap3 MDM: 09:48 Patient medically screened. kb 10:00 Data reviewed: vital signs, nurses notes. ED course: Patient is a 36-year-old female kb with no medical history who presents for bilateral lower back/flank pain, dysuria, frequency, urgency that began 5 days ago. Denies fever. Reports vaginal spotting that started yesterday. Mild CVA tenderness bilaterally upon exam. Will obtain urine sample.. 13:01 Differential diagnosis: kidney stone, urinary tract infection. Counseling: I had a kb detailed discussion with the patient and/or guardian regarding: the historical points, exam findings, and any diagnostic results supporting the discharge/admit diagnosis, lab results, the need for outpatient follow up, a family practitioner, to return to the emergency department if symptoms worsen or persist or if there are any questions or concerns that arise at home. 05/30 10:25 Order name: Urine Microscopic Only 05/30 12:17 Order name: Urine Dipstick-Ancillary; Complete Time: 12:27 EDMS 05/30 10:25 Order name: Urine Dipstick-Ancillary (obtain specimen); Complete Time: 12:22 05/30 10:25 Order name: Urine Test (obtain specimen); Complete Time: 12:22 05/30 12:54 Order name: Urine Microscopic Only; Complete Time: 12:58 EDMS Administered Medications: 13:29 Drug: Macrobid (nitrofurantoin) 100 mg Route: PO; 13:29 Follow up: Response: Medication administered at discharge. Disposition Summary: 05/30/22 13:03 Discharge Ordered Location: Home kb Condition: Stable kb Diagnosis - UTI/ Urinary tract infection, site not specified kb Followup: kb - With: Emergency Department - When: As needed - Reason: Worsening of condition Followup: kb - With: Private Physician - When: 2 - 3 days - Reason: Recheck today's complaints, Continuance of care, Re-evaluation by your physician Discharge Instructions: - Discharge Summary Sheet kb - Urinary Tract Infection, Adult, [id number] kb Forms: - Medication Reconciliation Form kb - Thank You Letter kb - Antibiotic Education kb - Prescription Opioid Use kb - Work release form ph Prescriptions: - Macrobid 100 mg Oral Capsule - take 1 capsule by ORAL route every 12 hours for 10 days; 20 capsule; Refills: kb 0, Product Selection Permitted Signatures: Dispatcher [employer] EDMS Tamiko Hunt, TIME ANALYSIS CLERK-C TIME ANALYSIS CLERKNeena Hearn RN RN ss Marcia Panda RN RN ap3 Corrections: (The following items were deleted from the chart) 13:01 13:00 Constitutional: This is a well developed, well nourished patient who is awake, kb alert, and in no acute distress. Head/Face: Normocephalic, atraumatic. ENT: Moist Mucous membranes Cardiovascular: Regular rate and rhythm with a normal S1 and S2. No gallops, murmurs, or rubs. No pulse deficits. Respiratory: Respirations even and unlabored. No increased work of breathing. Talking in full sentences Abdomen/GI: Soft, non-tender. No distention Back: No spinal tenderness. No costovertebral tenderness. Full range of motion. Skin: Warm, dry with normal turgor. Normal color. MS/ Extremity: Pulses equal, no cyanosis. Neurovascular intact. Full, normal range of motion. Neuro: Awake and alert, GCS 15, oriented to person, place, time, and situation. Moves all extremities. Normal gait. Psych: Awake, alert, with orientation to person, place and time. Behavior, mood, and affect are within normal limits. kb
--- NOTE | 2022-05-30 13:05 | ER ---
Nurse's Notes [facility] Name: Genesis Martel Age: 36 yrs Sex: Female : 1985 Arrival Date: 05/30/2022 Time: 09:47 Bed DIS1 Private MD: Diagnosis: UTI/ Urinary tract infection, site not specified Presentation: 05/30 10:11 Chief complaint: Patient states: she has been having bilateral low back pain for approx ap3 5 days. patient has been also having vaginal spotting for 2 days. patient also complains of dysuria, frequency, and urgency for 5 days as well as fever. Coronavirus screen: At this time, the client does not indicate any symptoms associated with coronavirus-19. Ebola Screen: No symptoms or risks identified at this time. Initial Sepsis Screen: Does the patient meet any 2 criteria? No. Patient's initial sepsis screen is negative. Does the patient have a suspected source of infection? No. Patient's initial sepsis screen is negative. Risk Assessment: Do you want to hurt yourself or someone else? Patient reports no desire to harm self or others. Onset of symptoms was May 25, 2022. 10:11 Method Of Arrival: Ambulatory ap3 10:11 Acuity: DREW 3 ap3 Triage Assessment: 10:13 General: Appears in no apparent distress. Behavior is calm, cooperative. Pain: ap3 Complains of pain in low back area Pain began gradually, over the last 5 days. Neuro: Level of Consciousness is awake, alert, obeys commands, Oriented to person, place, time, situation. Cardiovascular: Patient's skin is warm and dry. Respiratory: Airway is patent Respiratory effort is even, unlabored. : Reports urgency, urinary frequency. Historical: - Allergies: 10:12 Amoxicillin; ap3 - Home Meds: 10:12 None [Active]; ap3 - PMHx: 10:12 None; ap3 - Immunization history:: Client reports having NOT received the Covid vaccine. - Social history:: Smoking status: Patient denies any tobacco usage or history of. Screenin:13 [facility] ED Fall Risk Assessment (Adult) History of falling in the last 3 months, ap3 including since admission No falls in past 3 months (0 pts). Abuse screen: Denies threats or abuse. Nutritional screening: No deficits noted. Tuberculosis screening: No symptoms or risk factors identified. Assessment: 13:29 General: Appears in no apparent distress. comfortable, Behavior is calm, cooperative, ss Denies fever, feeling ill, fatigue, chills. Neuro: Level of Consciousness is awake, alert, obeys commands. Respiratory: Airway is patent Respiratory effort is even, unlabored, Respiratory pattern is regular, symmetrical. Derm: Skin is intact, is healthy with good turgor, Skin is pink, warm \T\ dry. normal. Vital Signs: 10:11 Pulse 96; Resp 18; Pulse Ox 99% ; Weight 61.69 kg; Height 5 ft. 1 in. (154.94 cm); ap3 10:11 Body Mass Index 25.70 (61.69 kg, 154.94 cm) ap3 ED Course: 09:47 Patient arrived in ED. rg4 09:48 Tamiko Hunt FNP-C is [facility]. kb 09:48 Jerod Fabian MD is Attending Physician. kb 10:12 Triage completed. ap3 10:13 Arm band placed on right wrist. ap3 12:22 Urine Microscopic Only Sent. bc6 13:21 Neena Reis, RN is Primary Nurse. ss 13:29 Patient has correct armband on for positive identification. ss 13:29 No provider procedures requiring assistance completed. Patient did not have IV access ss during this emergency room visit. Administered Medications: 13:29 Drug: Macrobid (nitrofurantoin) 100 mg Route: PO; ss 13:29 Follow up: Response: Medication administered at discharge. ss Medication: 13:29 VIS not applicable for this client. ss Outcome: 13:03 Discharge ordered by . kb 13:29 Discharged to home ambulatory. ss 13:29 Condition: good 13:29 Discharge instructions given to patient, Instructed on discharge instructions, follow up and referral plans. medication usage, Demonstrated understanding of instructions, follow-up care, medications, Prescriptions given X 1. 13:31 Patient left the ED. ss Signatures: Tamiko Hunt FNP-C FNP-Ckb Smirch, Shelby, RN RN Lavern Mccain rg4 Marcia Panda RN RN ap3 Laly Echavarria bc6
[2022-05-30] MEDS ORDERED: NITROFURAN MACRO 100 MG CAP PO ONE (13:31)
[2022-05-30 13:36] VITALS: O2SAT 99
== END 2022-05-30 13:31 | disposition home or self-care (01) ==
LOC: ER 09:44
DX: N39.0 Urinary tract infection, site not specified (principal); Z88.1 Allergy status to other antibiotic agents
CPT/HCPCS: 81003; 81015; 87086; 87088

== ENCOUNTER 2022-10-31 06:27 | Inpatient (IN) | payer SELFPAY ==
--- OUTSIDE RECORDS SUMMARY | 2022-10-31 07:06 | XMS REPORT | Continuity of Care Document ---
:1985 Author Organization [facility] t Address [address] [place] [address] [place] [id number] Care Team Providers Name Role Phone Doctor Unassigned, [place] Attending Clinician Unavailable Noy Gar Attending Clinician Aris Esparza Attending Clinician ARIS HUBBARD Attending Clinician Unavailable Payers Payer Name Policy Type Policy Number Effective Date Expiration Date S ource Problems Condition Condition Condition Status Onset Resolution Last Treating Co mments Source Name Details Category Date Date Treatment Clinician Date History of History of Disease Active 2019-04 U nivers female female 0-29 ity [place]iliz[place] [facility] Abnormal Abnormal Disease Active 2019-04 Unive rs uterine uterine 0-29 ity of bleeding bleeding 00:00: [place] [facility] Pain Pain Disease Active 2019-04 Univers pelvic pelvic 0-29 ity of 00:00: [place] [facility] Bacterial Bacterial Disease Active 2016-04 Uni vers nephritis nephritis 2-27 ity of 00:00: [place] [facility] Allergies, Adverse Reactions, Alerts Allergy Allergy Status Severity Reaction(s) Onset Inactive Treating Comm ents Source Name Type Date Date Clinician Hydrocod Propensi Active Nausea 2016-04 Univer s one ty to and/or 2-27 ity of adverse Vomiting 00:00: [place] reaction 00 [facility] HYDROCOD DRUG Active N/V 2016-04 Univers ONE INGREDI 2-27 ity of 00:00[place] [address] [facility] Social History Social Habit Start Date Stop Date Quantity Comments Source History of Smoker University of tobacco use [facility] Tobacco use and 2020-02-11 2020-02-11 Never used Universit y of exposure 00:00:00 00:00:00 [facility] Alcohol Comment 2020-02-11 2020-02-11 SOCIAL Universit y of 00:00:00 00:00:00 [facility] Alcohol intake 2020-02-11 2020-02-11 Current drinker Unive rsity of 00:00:00 00:00:00 of alcohol [facility] (finding) Branch Sex Assigned At [birth year] Universit y of 00:00:00 00:00:00 [facility] Smoking Status Start Date Stop Date Source Former smoker 2020-02-11 00:00:00 2020-02-11 00:00:00 Universi ty of [facility] Medications Ordered Filled Start Stop Current Ordering Indication Dosage Frequency Signature Comments Components Source Medication Medication Date Date Medication? Clinician (SIG) Name Name cyanocobala 2019-04 Yes Inject as U nivers min, 0-29 directed. ity of vitamin 18:33: [place] B-12, 12 Medical ([employer]-B[employer] Branch INJECTION) cyanocobala 2019-04 Yes Inject as U nivers min, 0-29 directed. ity of vitamin 18:33: [place] B-12, 12 Medical ([employer]-B12 Branch INJECTION) cyanocobala 2019-04 Yes Inject as U nivers min, 0-29 directed. ity of vitamin 18:33: [place] B-12, 12 Medical ([employer]PER[employer]-B12 Branch INJECTION) cyanocobala 2019-04 Yes Inject as U nivers min, 0-29 directed. ity of vitamin 18:33: [place] B-12, 12 Medical ([employer]PER[employer]-B12 Branch INJECTION) cyanocobala 2019-04 Yes Inject as U nivers min, 0-29 directed. ity of vitamin 18:33: [place] B-12, 12 Medical ([employer]PER[employer]-B12 Branch INJECTION) cyanocobala 2019-04 Yes Inject as U nivers min, 0-29 directed. ity of vitamin 18:33: [place] B-12, 12 Medical ([employer]B12 Branch INJECTION) cyanocobala 2019-04 Yes Inject as U nivers min, 0-29 directed. ity of vitamin 18:33: [place] B-12, 12 Medical ([employer]B12 Branch INJECTION) cyanocobala 2019-04 Yes Inject as U nivers min, 0-29 directed. ity of vitamin 18:33: Medical ([employer]-B12 Branch INJECTION) cyanocobala 2019-04 Yes Inject as U nivers min, 0-29 directed. ity of vitamin 18:33: Medical ([employer]B12 Branch INJECTION) cefpodoxime 2016-04 Yes 200mg Take [...] Name Observation Time Observation Value Comments Source Body height 2020-02-11 18:30:00 154.9 cm [facility] Body weight 2020-02-11 18:30:00 65.403 kg [facility] BMI 2020-02-11 18:30:00 27.24 kg/m2 Universi ty of [facility] Systolic blood 2020-02-11 18:30:00 102 mm[Hg] Univer sity of pressure [facility] Branch Diastolic blood 2020-02-11 18:30:00 67 mm[Hg] Unive rsity of pressure [facility] Heart rate 2020-02-11 18:30:00 83 /min Universi ty of [facility] Body temperature 2020-02-11 18:30:00 36.28 Fabiana Univ ersity of [facility] Respiratory rate 2020-02-11 18:30:00 18 /min Univ ersity of [facility] Body height 2020-02-11 18:30:00 154.9 cm Universi ty of [facility] Body weight 2020-02-11 18:30:00 65.403 kg Universi ty of [facility] BMI 2020-02-11 18:30:00 27.24 kg/m2 Universi ty [facility] Systolic blood 2020-02-11 18:30:00 102 mm[Hg] Univer sity of pressure [facility] Diastolic blood 2020-02-11 18:30:00 67 mm[Hg] Unive rsity of pressure [facility] Heart rate 2020-02-11 18:30:00 83 /min Universi ty of [facility] Body temperature 2020-02-11 18:30:00 36.28 Fabiana [facility] Respiratory rate 2020-02-11 18:30:00 18 /min [facility] Procedures Procedure Date / Time Performing Clinician Source Performed PATIENT CORRESPONDENCE 2020-08-18 05:01:00 Doctor Unassigned, [facility] (LETTERS, USPS [place] [facility] DOCUMENTATION) NOTICE OF PRIVACY 2020-02-11 17:52:50 Doctor Unassigned, [facility] PRACTICES [place] [facility] POCT TEST 2020-02-11 00:00:00 Aris Hubbard [facility] Encounters Start End Encounter Admission Attending Care Care Encounter Source Date/Time Date/Time Type Type Clinicians Facility Department ID 2020-08-18 2020-08-18 Orders Doctor FRITZ [id number] 00:00:00 00:00:00 Only UnassignedJOE [id number] ity of [place] [facility] [id number] Miguelangel as [phone] [place] [address] Branch 2020-08-01 2020-08-01 Case ZACH Ríos [id number] Univers 00:00:00 00:00:00 Management [facility] [id number] [id number] [id number] [address] 2020-07-19 2020-07-19 Outpatient R [facility] [id number] Univers 10:00:00 10:00:[address] [facility] 2020-07-19 2020-07-19 Telephone ZACH Ríos [id number] Univers 00:00:00 00:00:00 [facility] [id number] i [id number] [id number] [address] 2020-05-19 2020-05-19 Outpatient R [facility] [id number] Univers 10:00:00 10:00:[address] [facility] 2020-05-19 2020-05-19 Telephone ZACH Ríos [id number] Univers 00:00:00 00:00:00 [facility] [id number] i [id number] [id number] [address] 2020-05-19 2020-05-19 Letter ZACH Ríos [id number] Univers 00:00:00 00:00:00 (Out) [facility] [id number] i [id number] [id number] [address] 2020-03-03 2020-03-03 Outpatient R [facility] [id number] Univers 11:00:00 11:00:[address] [facility] 2020-03-03 2020-03-03 Outpatient R [facility] [id number] Univers 10:30:00 10:30:[address] [facility] 2020-03-03 2020-03-03 Telephone SHARAD Ríos [id number] 00:00:00 00:00:00 [facility] [id number] CLINICS [id number] [facility] 2020-03-03 2020-03-03 [facility] [id number] 00:00:00 00:00:00 (Out) [facility] [id number] CLINICS [id number] [facility] 2020-03-03 2020-03-03 Telephone [facility] [id number] Univers 00:00:00 00:00:00 [facility] [id number] i [id number] [id number] [address] 2020-03-03 2020-03-03 Letter [facility] [id number] Univers 00:00:00 00:00:00 (Out) [facility] [id number] i [id number] [id number] [address] 2020-02-24 2020-02-24 Outpatient R [facility] [id number] Univers 15:30:00 15:30:00 [facility] 2020-02-24 2020-02-24 Outpatient R [facility] [id number] Univers 12:30:00 12:30:00 [facility] 2020-02-11 2020-02-11 Office [facility] [id number] 12:57:49 14:29:44 Visit Aris Guthrie SERVER SOFTWARE ENGINEER [id number] REGIONAL [id number] MATERNAL [id number] & CHILD [address] [place] [address] 2020-02-11 2020-02-11 Office [facility] [id number] Univers 12:57:49 14:29:44 Visit Aris Guthrie SERVER SOFTWARE ENGINEER [id number] it y of REGIONAL [id number] Miguelangel as MATERNAL [id number] Med ical & CHILD [address] [place] [address] 2020-02-11 2020-02-11 Outpatient R HAYDEE [facility] [id number] Univers 12:30:00 12:30:[address] [facility] 2020-02-11 2020-02-11 Orders Doctor CATRINA [id number] Univers 00:00:00 00:00:00 Only Unassigned, JOE [id number] ity of [place] [facility] [id number] Miguelangel as [id number] [address] Results Test Description Test Time Test Comments Results Result Comments Source POCT TEST 2020-02-11 19:00:00 Test Item Value Reference Range Interpretation Comme nts POCT PREG (test code = 1605) Negative On board controls acceptable with C Line (test code = 3574) Yes POCT PREG LOT # (test code = 3575) POCT PREG TEST DATE (test code = 3576) [id number] 19:00:00 Test Item Value Reference Range Interpretation Comments POCT PREG (test code = 1605) Negative On board controls acceptable with C Yes Line (test code = 3574) POCT PREG LOT # (test code = 3575) POCT PREG TEST DATE (test code = 3576) [facility]
[2022-10-31] MEDS ORDERED: KETOROLAC 30 MG/ML INJ ONE (07:28)
[2022-10-31 07:31] LABS: Specific Gravity 1.015 (1.005-1.030); Urine Color Yellow (Yellow)
[2022-10-31 07:32] LABS: Specific Gravity 1.015 (1.005-1.030); Urine Bilirubin NEGATIVE (Negative); Urine Blood 2+ (Negative); Urine Clarity Cloudy (Clear); Urine Glucose NEGATIVE (Negative); Urine Protein 2+ (Negative); Urine Urobilinogen 0.2 mg/dL (0.2-1.0); Urine pH 5.5 (5.0-7.0)
[2022-10-31 07:38] LABS: Absolute Lymphocytes (CBC) 0.8 K/uL (0.7-4.9); Hematocrit 34.3 % (36.0-45.0); Lymphocytes % 6.2 % (15.3-44.8); MCV 83.2 fL (80-100); MPV 8.5 fL (7.6-11.3); RBC Red Blood Cell Count 4.12 M/uL (3.86-4.86)
[2022-10-31 07:39] LABS: Urine Bacteria <20 /HPF (<20); Urine Mucus Slight /HPF (None Seen); Urine RBC 21-50 /HPF (None Seen); Urine WBC Clump Occasional /HPF (None Seen)
--- NOTE | 2022-10-31 07:47 | RAD REPORT ---
EXAM DESCRIPTION: CT - Abdomen Pelvis Wo Contrast - 10/31/2022 7:41 am CLINICAL HISTORY: Abdominal pain. FLANK PAIN COMPARISON: CT ABD PELVIS W CONTRAST dated 07/20/2007 TECHNIQUE: CT imaging of the abdomen and pelvis was performed without contrast. Solid organ, bowel a nd vascular assessment is limited due to lack of IV and oral contrast. All CT scans are performed using dose optimization technique as appropriate and may include automated exposure control or mA/KV adjustment according to patient size. FINDINGS: The lower lung mendez are clear. The liver, spleen, pancreas, adrenal glands and kidneys are within normal limits for a limited non-co ntrast examination. No bowel obstruction, free air, free fluid or abscess. The appendix is normal. The osseous structures are within normal limits.3.5 cm right ovarian follicle. IMPRESSION: No acute intra-abdominal or pelvic findings. A limited non-contrast examination was performed as detailed.
[2022-10-31 07:55] LABS: Albumin 3.7 g/dL (3.4-5.0); Bilirubin Total 0.6 mg/dL (0.2-1.0); Potassium 3.6 mEq/L (3.5-5.1); Protein, Total 7.7 g/dL (6.4-8.2)
[2022-10-31] MEDS ORDERED: NA CHLORIDE 0.9% 1,000 ML ONE (08:09)
--- NOTE | 2022-10-31 08:27 | EDPHYS ---
Physician Documentation [facility] Name: Genesis Martel Age: 37 yrs Sex: Female : 1985 Arrival Date: 10/31/2022 Time: 06:27 Bed 17 Private MD: ED Physician Reggie Lantigua HPI: 10/31 07:39 This 37 yrs old Female presents to ER via Ambulatory with complaints of Low Back Pain. rt 07:39 Patient presents to the ED with right flank pain rating to the suprapubic region rt starting last night. Patient has had similar symptoms with kidney infections previously. Denies nausea, vomiting does report chills. Denies other acute complaints, symptoms are moderate in severity, aching in nature, not otherwise radiating, no other aggravating or elevating factors.. 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 - Social history:: Smoking status: Reported history of juuling and/or vaping. - Family history:: not pertinent. ROS: 07:39 Neck: Negative for injury, pain, and swelling, Cardiovascular: Negative for chest pain, rt palpitations, and edema, Respiratory: Negative for shortness of breath, cough, wheezing, and pleuritic chest pain, Skin: Negative for injury, rash, and discoloration, Neuro: Negative for headache, weakness, numbness, tingling, and seizure, Psych: Negative for depression, anxiety, suicide ideation, homicidal ideation, and hallucinations. 07:39 Constitutional: Positive for chills, Negative for fever. 07:39 Cardiovascular: Positive for 07:39 Abdomen/GI: Positive for nausea and vomiting, Negative for nausea and vomiting. 07:39 Back: Positive for pain at rest, flank pain. Exam: 07:39 Constitutional: This is a well developed, well nourished patient who is awake, alert, rt and in no acute distress. Head/Face: Normocephalic, atraumatic. Chest/axilla: Normal chest wall appearance and motion. Nontender with no deformity. No lesions are appreciated. Cardiovascular: Regular rate and rhythm with a normal S1 and S2. No gallops, murmurs, or rubs. Normal PMI, no JVD. No pulse deficits. Respiratory: Lungs have equal breath sounds bilaterally, clear to auscultation and percussion. No rales, rhonchi or wheezes noted. No increased work of breathing, no retractions or nasal flaring. Skin: Warm, dry with normal turgor. Normal color with no rashes, no lesions, and no evidence of cellulitis. MS/ Extremity: Pulses equal, no cyanosis. Neurovascular intact. Full, normal range of motion. Neuro: Awake and alert, GCS 15, oriented to person, place, time, and situation. Cranial nerves II-XII grossly intact. Motor strength 5/5 in all extremities. Sensory grossly intact. Cerebellar exam normal. Normal gait. Psych: Awake, alert, with orientation to person, place and time. Behavior, mood, and affect are within normal limits. 07:39 Abdomen/GI: Mild suprapubic tenderness without rebound, guarding, distention. 07:39 Back: Right CVAT is present, no midline tenderness. 09:16 ECG was reviewed by the Attending Physician. rt Vital Signs: 06:35 BP 105 / 54; Pulse 99; Resp 16; Temp 99.2; Pulse Ox 98% on R/A; Weight 63.05 kg; Height ha1 5 ft. 1 in. ; Pain 10/10; 07:00 BP 90 / 48; Pulse 94; Resp 16; Pulse Ox 99% on R/A; db 08:00 BP 94 / 52; Pulse 99; Resp 16; Pulse Ox 100% on R/A; db 09:14 Temp 100.4(O); db 09:15 BP 89 / 42; Pulse 88; Resp 14; Pulse Ox 96% on R/A; db 10:15 BP 87 / 51; Pulse 87; Resp 18; Pulse Ox 99% on R/A; Pain 0/10; db 06:35 Body Mass Index 26.26 (63.05 kg, 154.94 cm) ha1 06:35 Pain Scale: Adult ha1 10:15 Pain Scale: Adult db 09:15 Notified provider Rhina and Hospitalist Greg of patient BP db MDM: 07:02 Patient medically screened. rt 09:22 Differential diagnosis: Pyelonephritis, sepsis, ureterolithiasis. Data reviewed: vital rt signs, nurses notes. Consideration of Admission/Observation Patient was admitted/placed on observation. Management of patient was discussed with the following: Hospitalist: Agrees to admit. I considered the following discharge prescriptions or medication management in the emergency department Medications were administered in the Emergency Department. See MAR. Independent interpretation of the following test(s) in the Emergency Department CT Scan: My interpretation is No ureteral stone seen on interpretation CT scan images. Counseling: I had a detailed discussion with the patient and/or guardian regarding: the historical points, exam findings, and any diagnostic results supporting the discharge/admit diagnosis, lab results, radiology results, the need for further work-up and treatment in the hospital. ED course: Patient did not initially meet SIRS criteria, once labs as well as source of infection, urine, resulted, source infection was identified, patient did meet SIRS criteria at that time, then, blood cultures and lactate were ordered, antibiotics be given, patient to be admitted for further care.. 10/31 07:07 Order name: CBC with Diff rt 10/31 07:07 Order name: CMP; Complete Time: 08:09 rt 10/31 07:07 Order name: UAM; Complete Time: 07:41 rt 10/31 07:07 Order name: PREGU; Complete Time: 07:41 rt 10/31 07:43 Order name: Urine Culture EDGA 10/31 07:48 Order name: CBC Smear Scan EDGA 10/31 08:16 Order name: Blood Culture Adult (2) rt 10/31 08:16 Order name: Lactate w/ 2H reflex if indic. rt 10/31 08:16 Order name: Protime (+inr) rt 10/31 08:16 Order name: Ptt, Activated rt 10/31 09:30 Order name: Glucose, Ancillary Testing EDGA 10/31 10:38 Order name: Phosphorus EDGA 10/31 10:38 Order name: T4 Free EDGA 10/31 10:38 Order name: Magnesium EDGA 10/31 10:38 Order name: Thyroid Stimulating Hormone EDGA 10/31 07:07 Order name: CT Abd/Pelvis - Without Contrast; Complete Time: 07:48 rt 10/31 08:16 Order name: Accucheck; Complete Time: 09:33 rt 10/31 08:16 Order name: Cardiac monitoring; Complete Time: 08:40 rt 10/31 08:16 Order name: EKG - Nurse/Tech; Complete Time: 08:40 rt 10/31 08:16 Order name: IV Saline Lock - Large Bore; Complete Time: 09:13 rt 10/31 08:16 Order name: Labs collected and sent; Complete Time: 09:13 rt 10/31 08:16 Order name: O2 Per Protocol; Complete Time: 08:40 rt 10/31 08:16 Order name: O2 Sat Monitoring; Complete Time: 08:40 rt 10/31 08:16 Order name: Vital Signs; Complete Time: 09:13 rt EC:16 Rate is 93 beats/min. Rhythm is regular, Normal Sinus Rhythm with No ectopy. QRS [place] rt is Normal. IN interval is normal. QRS interval is normal. QT interval is prolonged at 504 msec. No Q waves. Interpreted by me. Administered Medications: 07:25 Drug: Ketorolac IVP 15 mg Route: IVP; Site: right antecubital; db 07:58 Drug: NS 0.9% IV 1000 ml Route: IV; Rate: 1 bolus; Site: right antecubital; db 09:12 Not Given (AMANDA NIÑO CANCELED MEDICATIONn): Rocephin IV 2 grams IV at calculated rate db once; Given slow IV push per [employer] instructions 09:25 Drug: Acetaminophen PO 1000 mg Route: PO; db 10:37 Follow up: Response: No adverse reaction db 09:25 Drug: NS 0.9% IV 1000 ml Route: IV; Rate: 1 bolus; Site: right antecubital; db 10:15 Follow up: Response: No adverse reaction; IV Status: Completed infusion; IV Intake: db 1000ml Disposition Summary: 10/31/22 08:27 Hospitalization Ordered Hospitalization Status: Inpatient Admission rt Provider: Thang Toribio rt Location: Telemetry/[facility] (Inpatient) rt Condition: Stable rt Problem: new rt Symptoms: have improved rt Bed/Room Type: Standard rt Room Assignment: 430(10/31/22 09:18) ja1 Diagnosis - Pyelonephritis acute rt - Sepsis, unspecified organism rt Forms: - Medication Reconciliation Form rt - SBAR form rt Critical care time excluding procedures: 09:22 Critical care time: Bedside Care: 30 minutes, Consultation: 5 minutes. Total time: 35 rt minutes Signatures: Dispatcher [employer] Vj Hall RN RN mary1 Pat Carrasquillo RN RN ha1 Di De Jesus RN RN db Reggie Lantigua MD MD rt Corrections: (The following items were deleted from the chart) :18 08:27 rt srinath
--- NOTE | 2022-10-31 08:27 | ER ---
Nurse's Notes [facility] Name: Genesis Martel Age: 37 yrs Sex: Female : 1985 Arrival Date: 10/31/2022 Time: 06:27 Bed 17 Private MD: Diagnosis: Pyelonephritis acute;Sepsis, unspecified organism Presentation: 10/31 06:35 Chief complaint: Patient states: I have a horrible back pain that radiates to the front ha1 of my pelvic area. 06:35 Coronavirus screen: Vaccine status: Patient reports being unvaccinated. Ebola Screen: ha1 No symptoms or risks identified at this time. Initial Sepsis Screen: Does the patient meet any 2 criteria? No. Patient's initial sepsis screen is negative. Does the patient have a suspected source of infection? No. Patient's initial sepsis screen is negative. Risk Assessment: Do you want to hurt yourself or someone else? Patient reports no desire to harm self or others. Onset of symptoms was October 31, 2022. 06:35 Method Of Arrival: Ambulatory ha1 06:35 Acuity: DREW 3 ha1 Triage Assessment: 06:35 General: Appears uncomfortable, Behavior is cooperative. Pain: Complains of pain in ha1 back Pain radiates to right lower quadrant Pain currently is 9 out of 10 on a pain scale. Neuro: Level of Consciousness is awake, alert, obeys commands, Oriented to person, place, time, situation. Cardiovascular: Patient's skin is warm and dry. Respiratory: Airway is patent Respiratory effort is even, unlabored, Respiratory pattern is regular, symmetrical. GI: Abdomen is flat, non-distended. Derm: Skin is pink, warm \T\ dry. Musculoskeletal: Circulation, motion, and sensation intact. Reports pain in back. 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 - Social history:: Smoking status: Reported history of juuling and/or vaping. - Family history:: not pertinent. Screenin:35 [facility] ED Fall Risk Assessment (Adult) History of falling in the last 3 months, ha1 including since admission No falls in past 3 months (0 pts) Confusion or Disorientation No (0 pts) Intoxicated or Sedated No (0 pts) Impaired Gait No (0 pts) Mobility Assist Device Used No (0 pt) Altered Elimination No (0 pt) Score/Fall Risk Level 0 - 2 = Low Risk Oriented to surroundings, Maintained a safe environment, Educated pt \T\ family on fall prevention, incl call for assistance when getting out of bed. Abuse screen: Denies threats or abuse. Denies injuries from another. Nutritional screening: No deficits noted. Tuberculosis screening: No symptoms or risk factors identified. Assessment: 07:20 Reassessment: Patient appears in no apparent distress at this time. Patient and/or db family updated on plan of care and expected duration. Pain level reassessed. Patient is alert, oriented x 3, equal unlabored respirations, skin warm/dry/pink. right flank pain started with cramping yesterday and gradually got worse. General: Appears in no apparent distress. comfortable, Behavior is calm, cooperative. 07:30 Reassessment: patient to CT. db 07:32 Pain: Complains of pain in abdomen and back. Neuro: Level of Consciousness is awake, db alert, obeys commands, Oriented to person, place, time, situation. 08:15 Reassessment: Patient appears in no apparent distress at this time. Patient and/or db family updated on plan of care and expected duration. Pain level reassessed. Patient is alert, oriented x 3, equal unlabored respirations, skin warm/dry/pink. Patient states feeling better. Patient states symptoms have improved. 09:56 Reassessment: Called to give report nurse states room has not been assigned and will db call me back. 10:25 Reassessment: Called to give report nurse will call me back. db 10:29 Reassessment: Patient appears in no apparent distress at this time. Patient and/or db family updated on plan of care and expected duration. Pain level reassessed. Patient is alert, oriented x 3, equal unlabored respirations, skin warm/dry/pink. Patient states feeling better. 10:30 Reassessment: Report given to JOHN Sainz. db Vital Signs: 06:35 BP 105 / 54; Pulse 99; Resp 16; Temp 99.2; Pulse Ox 98% on R/A; Weight 63.05 kg; Height ha1 5 ft. 1 in. ; Pain 10/10; 07:00 BP 90 / 48; Pulse 94; Resp 16; Pulse Ox 99% on R/A; db 08:00 BP 94 / 52; Pulse 99; Resp 16; Pulse Ox 100% on R/A; db 09:14 Temp 100.4(O); db 09:15 BP 89 / 42; Pulse 88; Resp 14; Pulse Ox 96% on R/A; db 10:15 BP 87 / 51; Pulse 87; Resp 18; Pulse Ox 99% on R/A; Pain 0/10; db 06:35 Body Mass Index 26.26 (63.05 kg, 154.94 cm) ha1 06:35 Pain Scale: Adult ha1 10:15 Pain Scale: Adult db 09:15 Notified provider Rhina and Hospitalist Greg of patient BP db Vitals: 10:15 Cardiac Rhythm Assessment Regular Sinus rhythm. db ED Course: 06:28 Patient arrived in ED. [id number] 06:35 Patient has correct armband on for positive identification. Bed in low position. Call ha1 light in reach. Side rails up X 1. 06:53 Triage completed. ha1 07:01 Reggie Lantigua MD is Attending Physician. rt 07:11 Di De Jesus, JOHN is Primary Nurse. db 07:24 Inserted saline lock: 20 gauge in right antecubital area, using aseptic technique. db Blood collected. 07:42 CT Abd/Pelvis - Without Contrast In Process Unspecified. EDMS 08:25 Yosvany Toribio MD is Hospitalizing Provider. rt 08:25 Thang Toribio MD is Hospitalizing Provider. rt 08:32 First set of blood cultures drawn by me. em1 08:45 Second set of blood cultures drawn by me. em1 10:28 Provided Education on: NEED FOR ADMIT. db 10:28 Arm band placed on Patient placed in an exam room. db 10:28 No provider procedures requiring assistance completed. Patient admitted, IV remains in db place. Administered Medications: 07:25 Drug: Ketorolac IVP 15 mg Route: IVP; Site: right antecubital; db 07:58 Drug: NS 0.9% IV 1000 ml Route: IV; Rate: 1 bolus; Site: right antecubital; db 09:12 Not Given (AMANDA NIÑO CANCELED MEDICATIONn): Rocephin IV 2 grams IV at calculated rate db once; Given slow IV push per [employer] instructions 09:25 Drug: Acetaminophen PO 1000 mg Route: PO; db 10:37 Follow up: Response: No adverse reaction db 09:25 Drug: NS 0.9% IV 1000 ml Route: IV; Rate: 1 bolus; Site: right antecubital; db 10:15 Follow up: Response: No adverse reaction; IV Status: Completed infusion; IV Intake: db 1000ml Medication: 07:34 VIS not applicable for this client. db Intake: 10:15 IV: 1000ml; Total: 1000ml. db Outcome: 08:27 Decision to Hospitalize by Provider. rt 10:28 Admitted to ER Hold. Please see [facility] for further documentation. db 10:28 Condition: stable 10:28 Instructed on the need for admit. 11:00 Patient left the ED. db Signatures: Dispatcher [employer] EDMS William Ramirez em1 Sowmya Prasad jj6 Pat Carrasquillo RN RN 1 Di De Jesus RN RN db Reggie Lantigua MD MD rt Corrections: (The following items were deleted from the chart) 07:58 07:32 Reassessment: Patient appears in no apparent distress at this time. Patient db and/or family updated on plan of care and expected duration. Pain level reassessed. Patient is alert, oriented x 3, equal unlabored respirations, skin warm/dry/pink. right flank pain started with cramping yesterday and gradually got worse db 07:58 07:32 General: Appears in no apparent distress. comfortable, Behavior is calm, db cooperative, db 10:36 09:15 BP 89 / 42; Pulse 88bpm; Resp 14bpm; Pulse Ox 96% RA; db db
[2022-10-31 08:47] LABS: Blood Morphology Comment NOTED (NOT SEEN); Ovalocytes 1+; Platelet Estimate ADEQ; Platelets, Giant 1+; Poikilocytosis 1+; White Blood Cell Scan NEUTROPHILIA (OK)
[2022-10-31 09:00] LABS: Protime INR 1.3
[2022-10-31] MEDS ORDERED: MORPHINE 4 MG/ML SYR IV PRN (09:03)
--- NOTE | 2022-10-31 09:22 | P.HP ---
Certification for Inpatient Patient admitted to: Inpatient With expected LOS: >2 Midnights Patient will require the following post-hospital care: None Practitioner: I am a practitioner with admitting privileges, knowledge of patient current condition, hospital course, and medical plan of care. Services: Services provided to patient in accordance with Admission requirements found in Title 42 Section 412.3 of the Code of Federal Regulations Patient History Date of Service: 10/31/22 Reason for admission: Right flank pain. History of Present Illness: Patient is a 37-year-old female with no known past medical history who presents with complaint of right flank pain onset yesterday. Patient indicated that pain radiates to her right lower quadrant and left lower quadrant. Patient rated pain as 10/10 in severity and described pain as stabbing in quality. Patient reported that this morning she started experiencing generalized pain. Patient reported associated signs and symptoms of fatigue, weakness, headache, chills, rhinorrhea and generalized malaise. Patient denies any other signs and symptoms. Symptoms are aggravated or relieved by nothing. Patient decided to present to the hospital due to worsening symptoms. Allergies No Known Allergies Allergy (Verified 10/31/22 10:53) Home Medications: NK [No Home Meds] 10/31/22 - Past Medical/Surgical History Past Medical History: Reviewed- Non-Contributory Past Surgical History: Reviewed- Non-Contributory - Family History Mother -: Lung disease Notes: COPD Father -: Heart disease - Social History Smoking Status: Never smoker Smoking therapy provided: No Patient receptive to therapy: No Alcohol use: No CD- Drugs: No Caffeine use: Yes Place of Residence: Home Review of Systems General: Chills, Weakness, Malaise Eyes: Unremarkable ENT: Other (Rhinorrhea) Respiratory: Unremarkable Cardiovascular: Unremarkable Gastrointestinal: Abdominal Pain Genitourinary: Other (Right flank pain) Musculoskeletal: Other (Generalized pain) Neurological: Weakness, Other (Headache) Lymphatics: Unremarkable Physical Examination - Physical Exam General: Alert, Oriented x3, Cooperative, Mild distress HEENT: Atraumatic, PERRLA, Mucous membr. moist/pink, EOMI, Sclerae nonicteric Neck: Supple, 2+ carotid pulse no bruit, No LAD, Without JVD or thyroid abnormality Respiratory: Clear to auscultation bilaterally, Normal air movement Cardiovascular: No edema, Regular rate/rhythm, Normal S1 S2 Capillary refill: <2 Seconds Gastrointestinal: Normal bowel sounds, Tenderness Musculoskeletal: No clubbing, No swelling, No tenderness Integumentary: No rashes, No significant lesion Neurological: Normal speech, Normal tone, Normal affect Lymphatics: No axilla or inguinal lymphadenopathy - Studies Laboratory Data (last 24 hrs) 10/31/22 08:32: PT 14.3 H, INR 1.30, APTT 30.7 10/31/22 07:24: Sodium 133 L, Potassium 3.6, BUN 17, Creatinine 0.83, Glucose 108 H, Total Bilirubin 0.6, AST 61 H, ALT 47, Alkaline Phosphatase 67 10/31/22 07:24: WBC 13.60 H, Hgb 10.9 L, Hct 34.3 L, Plt Count 267 Assessment and Plan - Plan --Pyelonephritis\UTI POA. CT abdomen indicates no acute intra-abdominal abnormality. Patient placed on antibiotics. Urine cultures pending. Patient was diagnosed with urine E. coli in May 2022. Continue IV hydration. --Sepsis\leukocytosis. Likely secondary to UTI. Blood cultures pending. Continue IV hydration. --Acute pain. We will manage pain with current pain medication regimen. --Headache. Tylenol as needed. --Hypotension. Patient baseline blood pressure unknown. Continue IV hydration. We will continue to monitor blood pressure levels. --DVT prophylaxis with Lovenox subQ. Discharge Plan: Home Plan to discharge in: Greater than 2 days - Advance Directives Does patient have a Living Will: No Does patient have a Durable POA for Healthcare: No - Code Status/Comfort Care Code Status Assessed: Yes Physician Review: Patient Assessed, Agree with Above Assessment and Plan Critical Care: No
[2022-10-31] MEDS ORDERED: ACETAMINOPHEN 500 MG TAB ONE (09:29)
[2022-10-31] MEDS ORDERED: NA CHLORIDE 0.9% 100 ML ONE (09:50)
[2022-10-31] MEDS ORDERED: Meropenem 1000 MG/VIAL IV ONE (09:50)
[2022-10-31] MEDS: Meropenem 1,000 MG in NA CHLORIDE 0.9% 100 ML IV SCH ×2 (10:00→16:38)
[2022-10-31] MEDS ORDERED: NA CHLORIDE 0.9% 1,000 ML IV SCH (10:00)
[2022-10-31 10:38] LABS: Magnesium 1.7 mg/dL (1.6-2.4); Thyroid Stimulating Hormone 0.346 uIU/mL (0.358-3.740)
[2022-10-31 11:26] VITALS: BMI 26.4
[2022-10-31] MEDS ORDERED: NA CHLORIDE 0.9% 1,000 ML IV ONE ×2 (12:30→17:00)
[2022-10-31] MEDS: MIDODRINE HCL 5 MG TABLET PO SCH ×3 (12:56→21:29)
[2022-10-31] MEDS: ACETAMINOPHEN 325 MG TABLET PO PRN ×2 (12:57→18:17)
[2022-10-31] MEDS: NA CHLORIDE 0.9% 1,000 ML IV SCH (17:00)
[2022-10-31 17:19] LABS: Absolute Lymphocytes (CBC) 2.3 K/uL (0.7-4.9); Hematocrit 26.9 % (36.0-45.0); Lymphocytes % 17.1 % (15.3-44.8); MCV 82.6 fL (80-100); MPV 8.4 fL (7.6-11.3); RBC Red Blood Cell Count 3.25 M/uL (3.86-4.86)
[2022-10-31 17:34] LABS: Potassium 3.5 mEq/L (3.5-5.1)
[2022-10-31 20:29] LABS: RBC Red Blood Cell Count 3.23 M/uL (3.86-4.86)
[2022-10-31 20:49] LABS: Ferritin 34.8 ng/mL (8-388); Iron < 10.0 ug/dL (50-170); Transferrin 200 mg/dL (200-360)
[2022-10-31] MEDS: KETOROLAC 30 MG/ML INJ IV PRN (21:31)
[2022-11-01] MEDS: NA CHLORIDE 0.9% 1,000 ML IV SCH ×4 (01:05→21:09)
[2022-11-01] MEDS: Meropenem 1,000 MG in NA CHLORIDE 0.9% 100 ML IV SCH ×3 (01:07→15:25)
[2022-11-01 06:35] LABS: Absolute Lymphocytes (CBC) 2.6 K/uL (0.7-4.9); Hematocrit 27.4 % (36.0-45.0); Lymphocytes % 25.4 % (15.3-44.8); MPV 8.3 fL (7.6-11.3)
[2022-11-01 06:52] LABS: Magnesium 1.8 mg/dL (1.6-2.4); Potassium 3.4 mEq/L (3.5-5.1)
--- NOTE | 2022-11-01 07:54 | P.PN ---
Date of Service: 11/01/22 Subjective: lower abdominal pain continues worse in RLQ, +radiating to R shoulder BP low/normal afebrile no acute events overnight ROS: 10 point ROS as noted above, otherwise negative Physical Exam: GEN: Alert, oriented, NAD HEENT: Normal conjunctiva, sclera anicteric CV: Regular rate and rhythm, no edema Pulm: Nonlabored respirations on room air abd: soft, mild diffuse tenderness, worse on R-side Neuro: Normal speech, normal affect vitals reviewed Problem List: Sepsis secondary to Pyelonephritis\UTI POA Hypotension severe iron deficiency anemia; chronic Headache Sepsis secondary to Pyelonephritis\UTI POA CT abdomen(10/31): no acute intra-abdominal abnormality. Urine culture: 4+GNR Blood cultures: pending: +GNR on stain ID consulted Continue Merrem (10/31-) dc ivf this evening PRN pain medication Hypotension Patient thinks her baseline is low 100s Continue IVF midodrine Headache Tylenol as needed. VTE: Lovenox Code: Full Dispo: Home
[2022-11-01] MEDS: MIDODRINE HCL 5 MG TABLET PO SCH ×3 (08:17→21:06)
[2022-11-01] MEDS: ENOXAPARIN 40 MG/0.4 ML SQ SCH (08:17)
[2022-11-01] MEDS: MAGNESIUM SULFATE 1 gm IVPB 1 GM/100 ML BAG IV ONE ×2 (08:17→08:18)
[2022-11-01] MEDS: CALCIUM CARBONATE 500 MG TAB PO SCH ×2 (08:17→21:06)
[2022-11-01] MEDS: KETOROLAC 30 MG/ML INJ IV PRN ×2 (08:56→16:07)
[2022-11-01] MEDS ORDERED: POTASSIUM CL SA 10 MEQ TAB PO ONE (09:00)
[2022-11-01] MEDS: TRAMADOL HCL 50 MG TAB PO PRN ×2 (17:56→22:53)
[2022-11-01] MEDS: ONDANSETRON 4 MG/2 ML VIAL IV PRN (17:56)
--- NOTE | 2022-11-01 18:21 | P.CNS ---
Date of Consult: 11/01/22 Reason for Consult: pyelonephritis, bacteremia Chief Complaint: Right flank pain. History of Present Illness: Patient is a 37 yo female with no significant past medical history who presented to the ED for back pain, fever, generalized weakness. Patient was found to have pyelonephritis. Blood cultures growing gram negative rods. ID was consulted. Allergies No Known Allergies Allergy (Verified 10/31/22 10:53) Home medications list reviewed: Yes Home Medications: NK [No Home Meds] 10/31/22 - Past Medical/Surgical History Diabetic: No - Family History Mother Medical History: Lung disease Notes: COPD Father Medical History: Heart disease - Social History Smoking Status: Never smoker Alcohol use: No CD- Drugs: No Caffeine use: Yes Place of Residence: Home Review of Systems Genitourinary: Other (suprapubic pain) Musculoskeletal: Other (flank pain) Physical Examination Temp Pulse Resp BP Pulse Ox 97.1 F 60 20 117/64 98 11/01/22 16:00 11/01/22 16:00 11/01/22 16:00 11/01/22 16:00 11/01/22 16:00 General: Alert, In no apparent distress, Oriented x3 HEENT: Atraumatic, PERRLA Neck: Supple, JVD not distended Respiratory: Clear to auscultation bilaterally, Normal air movement Cardiovascular: No edema, Normal pulses Gastrointestinal: Normal bowel sounds, Soft and benign, Tenderness (suprapubic area) Musculoskeletal: No clubbing Integumentary: No rashes, No breakdown Neurological: Normal speech, Normal tone, Normal affect Laboratory data reviewed Microbiology data reviewed Imaging data reviewed Conclusions/Impression: Gram negative bacteremia Pyelonephritis - Blood cultures 10/31: 1 of 4 bottles with gram negative rods - Urine culture 10/31: gram negative rods Recent history of E.coli ESBL UTI on 05/30/2022. - Currently on Merrem Recommendations Due to history of E.coli ESBL, patient has been started on Merrem (10/31) Follow up with urine and blood culture results and adjust antibiotics as appropriate. Continue antibiotic therapy for 14 days total. Case discussed with Florinda Selby
[2022-11-02] MEDS: Meropenem 1,000 MG in NA CHLORIDE 0.9% 100 ML IV SCH ×3 (01:27→16:14)
[2022-11-02 03:52] LABS: Absolute Lymphocytes (CBC) 1.7 K/uL (0.7-4.9); Hematocrit 28.1 % (36.0-45.0); Lymphocytes % 16.7 % (15.3-44.8); MCV 82.9 fL (80-100); MPV 8.8 fL (7.6-11.3); RBC Red Blood Cell Count 3.39 M/uL (3.86-4.86)
[2022-11-02 04:04] LABS: Magnesium 1.9 mg/dL (1.6-2.4); Potassium 3.9 mEq/L (3.5-5.1)
[2022-11-02] MEDS: ACETAMINOPHEN 325 MG TABLET PO PRN (04:13)
--- NOTE | 2022-11-02 08:12 | P.PN ---
Date of Service: 11/02/22 Subjective: feeling slightly better today abdominal pain radiating to left flank since yesterday no acute events overnight afebrile ROS: 10 point ROS as noted above, otherwise negative Physical Exam: GEN: Alert, oriented, NAD HEENT: Normal conjunctiva, sclera anicteric CV: Regular rate and rhythm, no edema Pulm: Nonlabored respirations on room air abd: soft, mild diffuse tenderness, worse on R-side Neuro: Normal speech, normal affect vitals reviewed Problem List: Sepsis secondary to Pyelonephritis\UTI, E. Coli Esbl; bacteremia Hypotension severe iron deficiency anemia; chronic Headache Sepsis secondary to Pyelonephritis\UTI, E. Coli Esbl CT abdomen(10/31): no acute intra-abdominal abnormality Urine Cx: E. coli Esbl Blood Cx: +GNR ID consulted Continue Merrem (10/31-) will need 2 weeks of IV merrem given ESBL Remains afebrile, leukocytosis improved c-reactive, procal improving PRN pain medication Hypotension multifactorial; Patient thinks her baseline is low 100s dehydrated, sepsis, and further decreased after receiving narcotic pain medication not septic shock PO intake improved, dc'd IVF midodrine Headache Tylenol as needed. VTE: Lovenox Code: Full Dispo: Home
[2022-11-02] MEDS: TRAMADOL HCL 50 MG TAB PO PRN ×2 (08:18→18:50)
[2022-11-02] MEDS: MIDODRINE HCL 5 MG TABLET PO SCH ×3 (08:18→20:49)
[2022-11-02] MEDS: ENOXAPARIN 40 MG/0.4 ML SQ SCH (08:18)
[2022-11-02] MEDS: CALCIUM CARBONATE 500 MG TAB PO SCH ×2 (08:18→20:48)
[2022-11-02] MEDS ORDERED: POTASSIUM CL SA 10 MEQ TAB PO ONE (09:00)
[2022-11-02] MEDS: ONDANSETRON 4 MG/2 ML VIAL IV PRN (18:51)
[2022-11-02] MEDS: MORPHINE 2 MG/ML SYR IV PRN (21:23)
[2022-11-03] MEDS: Meropenem 1,000 MG in NA CHLORIDE 0.9% 100 ML IV SCH ×3 (02:12→16:55)
[2022-11-03] MEDS: MORPHINE 2 MG/ML SYR IV PRN ×2 (02:12→23:09)
[2022-11-03 04:38] LABS: Absolute Lymphocytes (CBC) 1.8 K/uL (0.7-4.9); Hematocrit 28.6 % (36.0-45.0); Lymphocytes % 23.2 % (15.3-44.8); MCV 82.8 fL (80-100); RBC Red Blood Cell Count 3.45 M/uL (3.86-4.86)
[2022-11-03 04:53] LABS: Magnesium 1.8 mg/dL (1.6-2.4); Phosphorus 2.5 mg/dL (2.5-4.9); Potassium 4.1 mEq/L (3.5-5.1)
--- NOTE | 2022-11-03 07:35 | P.PN ---
Date of Service: 11/03/22 Subjective: migraine and nausea since yesterday - feels they come as pain medicine is wearing off left flank pain continues, improving minimal appetite no new / worsening problems ROS: 10 point ROS as noted above, otherwise negative Physical Exam: GEN: Alert, oriented, NAD HEENT: Normal conjunctiva, sclera anicteric CV: Regular rate and rhythm, no edema Pulm: Nonlabored respirations on room air abd: soft, mild diffuse tenderness, worse on R-side Neuro: Normal speech, normal affect vitals reviewed Problem List: Sepsis secondary to Pyelonephritis\UTI, E. Coli ESBL E. Coli ESBL bacteremia Hypotension severe iron deficiency anemia; chronic Headache/Migraine Sepsis secondary to Pyelonephritis\UTI, E. Coli ESBL E. Coli ESBL bacteremia CT abdomen(10/31): no acute intra-abdominal abnormality Urine Cx: E. Coli Esbl Blood Cx: E. Coli Esbl ID consulted Continue Merrem (10/31- ~11/13) will need 2 weeks of IV abx given ESBL - merrem / ertapenem Remains afebrile, leukocytosis improved c-reactive, procal improving PRN pain medication switched tramadol to tylenol #3 pt reports nausea with hydrocodone PICC line ordered 11/03 Hypotension multifactorial; Patient thinks her baseline is low 100s dehydrated, sepsis, and further decreased after receiving narcotic pain medication not septic shock PO intake improved, dc'd IVF midodrine Headache Tylenol as needed. VTE: Lovenox Code: Full Dispo: Home, 2+ days PICC line ordered 11/03
[2022-11-03] MEDS: ACETAMINOPHEN 325 MG TABLET PO PRN (08:24)
[2022-11-03] MEDS: CALCIUM CARBONATE 500 MG TAB PO SCH (08:24)
[2022-11-03] MEDS: MIDODRINE HCL 5 MG TABLET PO SCH ×3 (08:24→20:48)
[2022-11-03] MEDS: ENOXAPARIN 40 MG/0.4 ML SQ SCH (08:25)
[2022-11-03] MEDS: POTASS/SODIUM PHOSPHATE 1 PKT POWD.PACK PO SCH ×3 (08:25→09:08)
[2022-11-03] MEDS ORDERED: MAGNESIUM SULFATE 1 gm IVPB 1 GM/100 ML BAG IV ONE (09:00)
[2022-11-03] MEDS: ONDANSETRON 4 MG/2 ML VIAL IV PRN (09:04)
[2022-11-03] MEDS: SUMATRIPTAN SUCCI 50 MG TAB PO SCH (11:22)
[2022-11-03] MEDS: CODEINE 30MG/APAP 300MG TAB PO PRN (16:55)
[2022-11-03] MEDS: Mupirocin NASAL 2 APPL/1 GM TUBE NAS SCH (20:49)
[2022-11-04] MEDS: Meropenem 1,000 MG in NA CHLORIDE 0.9% 100 ML IV SCH ×3 (01:25→16:05)
[2022-11-04 04:38] LABS: Hematocrit 28.3 % (36.0-45.0); MCV 81.6 fL (80-100); MPV 8.5 fL (7.6-11.3); RBC Red Blood Cell Count 3.47 M/uL (3.86-4.86)
[2022-11-04] MEDS: CODEINE 30MG/APAP 300MG TAB PO PRN (04:42)
[2022-11-04 04:50] LABS: C-Reactive Protein 16.6 mg/L (<3.00); Magnesium 1.9 mg/dL (1.6-2.4); Phosphorus 3.3 mg/dL (2.5-4.9); Potassium 3.9 mEq/L (3.5-5.1)
--- NOTE | 2022-11-04 07:39 | P.PN ---
Date of Service: 11/04/22 Subjective: intermittent nausea/migraine improved yesterday, came back today refused PICC line yesterday, scared/worried about another infection, worried about going home, agreeable to PICC today abdominal/left flank pain improving otherwise no new / worsening problems ROS: 10 point ROS as noted above, otherwise negative Physical Exam: GEN: Alert, oriented, NAD HEENT: Normal conjunctiva, sclera anicteric CV: Regular rate and rhythm, no edema Pulm: Nonlabored respirations on room air abd: soft, mild diffuse tenderness, non-distended Neuro: Normal speech, normal affect vitals reviewed Problem List: Sepsis secondary to Pyelonephritis\UTI, E. Coli ESBL E. Coli ESBL bacteremia Hypotension severe iron deficiency anemia; chronic Headache/Migraine Sepsis secondary to Pyelonephritis\UTI, E. Coli ESBL E. Coli ESBL bacteremia CT abdomen(10/31): no acute intra-abdominal abnormality Urine Cx: E. Coli Esbl Blood Cx: E. Coli Esbl ID consulted Continue Merrem (10/31- ~11/13) will need 2 weeks of IV abx given ESBL - merrem / ertapenem on dc Remains afebrile, leukocytosis improved CRP, procal improving PRN pain medication switched tramadol to tylenol #3 pt reports nausea with hydrocodone PICC line ordered 11/03 refused PICC line yesterday 11/04 - discussed risks/benefits and agreeable to getting it done today Hypotension multifactorial; Patient thinks her baseline is low 100s dehydrated, sepsis, and further decreased after receiving narcotic pain medication not septic shock PO intake improved, dc'd IVF midodrine as needed Headache/Migraine Tylenol as needed. cont sumatriptan PRN VTE: Lovenox Code: Full Dispo: Home, 2+ days Refused PICC line yesterday - agreeable to getting it done today
[2022-11-04] MEDS ORDERED: POTASSIUM CL SA 10 MEQ TAB PO ONE (09:00)
[2022-11-04] MEDS: MIDODRINE HCL 5 MG TABLET PO SCH ×3 (09:08→21:00)
[2022-11-04] MEDS: ENOXAPARIN 40 MG/0.4 ML SQ SCH (09:09)
[2022-11-04] MEDS: Mupirocin NASAL 2 APPL/1 GM TUBE NAS SCH ×2 (09:09→21:00)
[2022-11-04] MEDS ORDERED: SUMATRIPTAN SUCCI 50 MG TAB PO PRN (10:31)
[2022-11-04] MEDS ORDERED: FLUCONAZOLE 100 MG TAB PO ONE (10:44)
[2022-11-05] MEDS: Meropenem 1,000 MG in NA CHLORIDE 0.9% 100 ML IV SCH ×3 (01:17→16:21)
[2022-11-05] MEDS: CODEINE 30MG/APAP 300MG TAB PO PRN (01:18)
[2022-11-05 05:40] LABS: Magnesium 1.9 mg/dL (1.6-2.4); Phosphorus 4.1 mg/dL (2.5-4.9); Potassium 4.1 mEq/L (3.5-5.1)
--- NOTE | 2022-11-05 07:08 | P.PN ---
Date of Service: 11/05/22 Subjective: feeling better today abdominal/left flank pain improving no nausea / diarrhea / vomiting refused PICC yesterday ROS: 10 point ROS as noted above, otherwise negative Physical Exam: GEN: Alert, oriented, NAD HEENT: Normal conjunctiva, sclera anicteric CV: Regular rate and rhythm, no edema Pulm: Nonlabored respirations on room air abd: soft, mild diffuse tenderness, non-distended Neuro: Normal speech, normal affect vitals reviewed Problem List: Sepsis secondary to Pyelonephritis\UTI, E. Coli ESBL E. Coli ESBL bacteremia Hypotension severe iron deficiency anemia; chronic Headache/Migraine Severe Iron deficiency Anemia Sepsis secondary to Pyelonephritis\UTI, E. Coli ESBL E. Coli ESBL bacteremia CT abdomen(10/31): no acute intra-abdominal abnormality Urine Cx: E. Coli Esbl Blood Cx: E. Coli Esbl ID consulted Continue Merrem (10/31- ~11/13) will need 2 weeks of IV abx given ESBL - merrem / ertapenem on dc Remains afebrile, leukocytosis improved CRP, procal improving PRN pain medication switched tramadol to tylenol #3 pt reports nausea with hydrocodone PICC line ordered 11/03 11/04 - discussed risks/benefits and agreeable to getting it done 11/05 - refused PICC line again yesterday Hypotension multifactorial; Patient thinks her baseline is low 100s dehydrated, sepsis, and further decreased after receiving narcotic pain medication not septic shock PO intake improved, dc'd IVF midodrine as needed Headache/Migraine Tylenol as needed. cont sumatriptan PRN Severe Iron deficiency Anemia iron < 10 Monitor H&H. Transfuse if hgb < 7 f/u with PCP, will likely need to take iron pills on discharge VTE: Lovenox Code: Full Dispo: Home, 2+ days Refused PICC line yesterday
[2022-11-05] MEDS: MIDODRINE HCL 5 MG TABLET PO SCH ×3 (10:00→21:27)
[2022-11-05] MEDS: ENOXAPARIN 40 MG/0.4 ML SQ SCH (10:00)
[2022-11-05] MEDS: Mupirocin NASAL 2 APPL/1 GM TUBE NAS SCH ×2 (10:00→21:00)
--- NOTE | 2022-11-05 12:18 | PN ---
The patient was not found in the room. I went there for 2 times around 11 a.m. and 11:15. Case disc ussed with the hospitalist team. We will continue carbapenems for total of 2 weeks. NF/MODL Voice ID: [id number] Report ID: [id number]
[2022-11-05] MEDS: SUMATRIPTAN SUCCI 50 MG TAB PO SCH (21:26)
[2022-11-06] MEDS: Meropenem 1,000 MG in NA CHLORIDE 0.9% 100 ML IV SCH ×3 (00:40→17:09)
[2022-11-06] MEDS ORDERED: ZOLPIDEM TARTRATE 10 MG TABLET PO PRN (00:45)
[2022-11-06] MEDS: ENOXAPARIN 40 MG/0.4 ML SQ SCH (10:17)
[2022-11-06] MEDS: MIDODRINE HCL 5 MG TABLET PO SCH ×3 (10:23→21:05)
[2022-11-06] MEDS: Mupirocin NASAL 2 APPL/1 GM TUBE NAS SCH ×2 (10:24→21:04)
--- NOTE | 2022-11-06 15:16 | EKG ---
Test Date: 2022-10-31 Test Time: 08:35:32 Concrete Stone Fabricator: FARRUKH MEASUREMENT RESULTS: Intervals: Rate: 93 GA: 132 QRSD: 88 QT: 406 QTc: 504 Cory: P: 75 GA: 132 QRS: 61 T: 132 INTERPRETIVE STATEMENTS: Normal sinus rhythm Nonspecific T wave abnormality Prolonged QT Abnormal ECG Compared to ECG 02/17/2019 16:07:07 T-wave abnormality now present Prolonged QT interval now present Electronically Signed On 11-06-22 15:05:04 CDT by Santos Cook
[2022-11-06] MEDS: ACETAMINOPHEN 325 MG TABLET PO PRN (17:07)
--- NOTE | 2022-11-06 19:18 | P.PN ---
Subjective Date of Service: 11/06/22 Chief Complaint: Right flank pain. Patient is complaining of pain at the back of her neck. Physical Examination - Vital Signs Temperature: 97.8 F Blood Pressure: 119/59 Pulse: 59 Respirations: 16 Pulse Ox (%): 98 Assessment And Plan - Plan Physical Exam: GEN: Alert, oriented, NAD HEENT: Normal conjunctiva, sclera anicteric CV: Regular rate and rhythm, no edema Pulm: Clear to auscultation bilaterally. abd: soft, mild diffuse tenderness, non-distended Neuro: Normal speech, normal affect vitals reviewed Problem List: Sepsis secondary to Pyelonephritis\UTI, E. Coli ESBL E. Coli ESBL bacteremia Hypotension severe iron deficiency anemia; chronic Headache/Migraine Severe Iron deficiency Anemia Sepsis secondary to Pyelonephritis\UTI, E. Coli ESBL E. Coli ESBL bacteremia CT abdomen(10/31): no acute intra-abdominal abnormality Urine Cx: E. Coli Esbl Blood Cx: E. Coli Esbl ID consulted Continue Merrem (10/31- ~11/13) will need 2 weeks of IV abx given ESBL - merrem / ertapenem on dc Remains afebrile, leukocytosis improved PRN pain medication PICC line ordered 11/03 Awaiting PICC line placement for outpatient IV antibiotics Hypotension multifactorial; Patient thinks her baseline is low 100s midodrine as needed Headache/Migraine Tylenol as needed. cont sumatriptan PRN Severe Iron deficiency Anemia iron < 10 Monitor H&H. Transfuse if hgb < 7 f/u with PCP, will likely need to take iron pills on discharge. Neck pain Obtain CT cervical spine.
--- NOTE | 2022-11-06 21:08 | RAD REPORT ---
EXAM DESCRIPTION: CT - C Spine W/ Con - 11/06/2022 8:57 pm CLINICAL HISTORY: Septicemia with neck pain COMPARISON: None TECHNIQUE: Computed axial tomography of the cervical spine were obtained with sagittal and coronal r econstruction images generated and reviewed. 50 cc [id number] scans are performed using dose optimization technique as appropriate and may include automated exposure control or mA/KV adjustment according to patient size. FINDINGS: A cervical fracture is not seen. No dislocation. No high-grade central/foraminal stenosis noted Mild spondylosis involves the cervical spine. No bony destructive lesions involving the cervical spine. No abscess noted IMPRESSION: A cervical fracture is not seen. No high-grade central/foraminal stenosis noted If the patient continues have symptoms to suggest spinal cord/spinal canal pathology then MRI would b e recommended.
[2022-11-07] MEDS: Meropenem 1,000 MG in NA CHLORIDE 0.9% 100 ML IV SCH ×3 (01:00→17:26)
[2022-11-07] MEDS ORDERED: Meropenem 1000 MG/VIAL IV ONE (01:45)
[2022-11-07 05:33] LABS: Phosphorus 3.8 mg/dL (2.5-4.9); Potassium 4.3 mEq/L (3.5-5.1)
[2022-11-07] MEDS: ENOXAPARIN 40 MG/0.4 ML SQ SCH (09:17)
[2022-11-07] MEDS: MIDODRINE HCL 5 MG TABLET PO SCH ×3 (09:18→20:23)
[2022-11-07] MEDS: Mupirocin NASAL 2 APPL/1 GM TUBE NAS SCH ×2 (09:18→20:23)
[2022-11-07] MEDS: ACETAMINOPHEN 325 MG TABLET PO PRN ×2 (09:29→17:26)
--- NOTE | 2022-11-07 13:30 | CON ---
History Of Present Illness: The patient is a 37-year-old, sitting in bed, not in acute distress. No new complaints. Coming in with pyelonephritis. The patient had cystitis in the beginning of this y ear. No other medical problems at this time. Social History: Vapes, nondrinker. Family History: Noncontributory. Medications: Meropenem. See MAR for other medications. Allergies: NO KNOWN DRUG ALLERGIES. Review of Systems: A 10-point review was performed. Physical Examination: General: This is a 37-year-old female, otherwise not in any acute distress. Vital Signs: Temperature 97, pulse 63, respirations 14, blood pressure 117/67. Overall examination is unremarkable. HEENT: Unremarkable. Neck: Supple. Lungs: Clear to auscultation. Heart: S1, S2. Regular. Abdomen: Soft, nontender. Bowel sounds present. Extremity: No edema. Laboratory Data: WBC 6.5, hemoglobin 9.6, platelets are 245. Chemistry shows BUN of 7, creatinine 0 .5. Urinalysis on admission, she had more than 50 WBC. Urine cultures grew E coli ESBL and blood cu ltures, E coli ESBL. The patient is currently getting meropenem. Assessment And Plan: Right-sided pyelonephritis with E coli ESBL, bacteremia. We will continue zachary penem for 2 weeks, can be switched to Invanz on discharge to complete the course. We will follow the patient as needed. BETHANY/MODJody Voice ID: [id number] Report ID: [id number]
--- NOTE | 2022-11-07 16:55 | P.PN ---
Subjective Date of Service: 11/07/22 Chief Complaint: Right flank pain. Patient has no new complaint. Physical Examination - Vital Signs Temperature: 97.9 F Blood Pressure: 109/70 Pulse: 67 Respirations: 18 Pulse Ox (%): 98 Assessment And Plan - Plan Physical Exam: GEN: Alert, oriented, NAD CV: Regular rate and rhythm, no edema Pulm: Clear to auscultation bilaterally. abd: soft, nontender, non-distended Neuro: Normal speech, normal affect vitals reviewed Problem List: Sepsis secondary to Pyelonephritis\UTI, E. Coli ESBL E. Coli ESBL bacteremia Hypotension severe iron deficiency anemia; chronic Headache/Migraine/neck pain Severe Iron deficiency Anemia Sepsis secondary to Pyelonephritis\UTI, E. Coli ESBL E. Coli ESBL bacteremia CT abdomen(10/31): no acute intra-abdominal abnormality Urine Cx: E. Coli Esbl Blood Cx: E. Coli Esbl ID consulted Continue Merrem (10/31- ~11/13) will need 2 weeks of IV abx given ESBL - merrem / ertapenem on dc Remains afebrile, leukocytosis resolved. PRN pain medication PICC line ordered 11/03 Awaiting PICC line placement for outpatient IV antibiotics and arrangement for outpatient IV antibiotics for discharge Hypotension multifactorial; Patient thinks her baseline is low 100s midodrine as needed Headache/Migraine Tylenol as needed. cont sumatriptan PRN Severe Iron deficiency Anemia iron < 10 Monitor H&H. Transfuse if hgb < 7 f/u with PCP, will likely need to take iron pills on discharge. Neck pain CT cervical spine is unremarkable. Neck pain likely related to migraine. Pain management as needed.
[2022-11-08] MEDS ORDERED: Meropenem 1000 MG/VIAL IV ONE (01:14)
[2022-11-08] MEDS: Meropenem 1,000 MG in NA CHLORIDE 0.9% 100 ML IV SCH ×2 (01:23→09:46)
[2022-11-08] MEDS: ACETAMINOPHEN 325 MG TABLET PO PRN ×2 (01:33→09:53)
[2022-11-08 06:52] LABS: Magnesium 2.1 mg/dL (1.6-2.4); Phosphorus 3.6 mg/dL (2.5-4.9); Potassium 4.8 mEq/L (3.5-5.1)
[2022-11-08] MEDS: ENOXAPARIN 40 MG/0.4 ML SQ SCH (09:00)
[2022-11-08] MEDS: Mupirocin NASAL 2 APPL/1 GM TUBE NAS SCH (09:46)
[2022-11-08] MEDS: MIDODRINE HCL 5 MG TABLET PO SCH ×2 (09:46→15:27)
--- NOTE | 2022-11-08 13:26 | P.DS ---
Admission Date: 10/31/22 Discharge Date: 11/08/22 Disposition: ROUTINE DISCHARGE Discharge Condition: FAIR Reason for Admission: Right flank pain. Brief History of Present Illness: Patient is a 37-year-old female with no known past medical history who presents with complaint of right flank pain onset yesterday. Patient indicated that pain radiates to her right lower quadrant and left lower quadrant. Patient rated pain as 10/10 in severity and described pain as stabbing in quality. Patient reported that this morning she started experiencing generalized pain. Patient reported associated signs and symptoms of fatigue, weakness, headache, chills, rhinorrhea and generalized malaise. She had low-grade fever and leukocytosis meeting criteria for sepsis. UA suggested the presence of UTI. Patient was hospitalized for further management. Hospital Course: Problem List: Sepsis secondary to Pyelonephritis\UTI, E. Coli ESBL E. Coli ESBL bacteremia Hypotension severe iron deficiency anemia; chronic Headache/Migraine/neck pain Severe Iron deficiency Anemia Sepsis secondary to Pyelonephritis\UTI, E. Coli ESBL E. Coli ESBL bacteremia CT abdomen(10/31): no acute intra-abdominal abnormality Urine Cx: E. Coli Esbl Blood Cx: E. Coli Esbl ID consulted Continue Merrem (10/31- ~11/13) will need 2 weeks of IV abx given ESBL - ertapenem on dc Remains afebrile, leukocytosis resolved. PRN pain medication PICC line placed. Patient deemed stable for discharge. Hypotension Likely low BP at baseline Headache/Migraine Tylenol as needed. Also managed with sumatriptan PRN Severe Iron deficiency Anemia iron < 10 Patient prescribed iron polysaccharide on discharge. Neck pain CT cervical spine is unremarkable. Neck pain likely related to migraine. Vital Signs/Physical Exam: Temp Pulse Resp BP Pulse Ox 97.9 F 70 18 92/60 97 11/08/22 04:00 11/08/22 04:00 11/08/22 04:00 11/08/22 04:00 11/08/22 04:00 General: Alert, In no apparent distress, Oriented x3 HEENT: Mucous membr. moist/pink Neck: Supple, JVD not distended Respiratory: Clear to auscultation bilaterally, Normal air movement Cardiovascular: No edema, Regular rate/rhythm, Normal S1 S2 Gastrointestinal: Normal bowel sounds, Soft and benign, Non-distended, No tenderness Musculoskeletal: No swelling Integumentary: No rashes, No cyanosis Neurological: Normal strength at 5/5 x4 extr Laboratory Data at Discharge: WBC 6.50 thou/uL (4.3-10.9) 11/04/22 04:09 Hgb 9.6 g/dL (12.0-15.0) L 11/04/22 04:09 Hct 28.3 % (36.0-45.0) L 11/04/22 04:09 Plt Count 245 thou/uL (152-406) 11/04/22 04:09 PT 14.3 SECONDS (9.5-12.5) H 10/31/22 08:32 INR 1.30 10/31/22 08:32 APTT 30.7 SECONDS (24.3-36.9) 10/31/22 08:32 Sodium 137 mEq/L (136-145) 11/08/22 05:45 Potassium 4.8 mEq/L (3.5-5.1) 11/08/22 05:45 BUN 13 mg/dL (7-18) 11/08/22 05:45 Creatinine 0.63 mg/dL (0.55-1.02) 11/08/22 05:45 Glucose 106 mg/dL (74-106) 11/08/22 05:45 Phosphorus 3.6 mg/dL (2.5-4.9) 11/08/22 05:45 Magnesium 2.1 mg/dL (1.6-2.4) 11/08/22 05:45 Total Bilirubin 0.6 mg/dL (0.2-1.0) 10/31/22 07:24 AST 61 U/L (15-37) H 10/31/22 07:24 ALT 47 U/L (13-56) 10/31/22 07:24 Alkaline Phosphatase 67 U/L (45-117) 10/31/22 07:24 Home Medications: Ertapenem Sodium [Ertapenem] 1 gm IVPB DAILY #7 ml 11/08/22 Iron Polysaccharide Complex [Polysaccharide Iron] 150 mg PO DAILY #30 tab 11/08/22 New Medications: Ertapenem Sodium [Ertapenem] 1 gm IVPB DAILY #7 ml Iron Polysaccharide Complex [Polysaccharide Iron] 150 mg PO DAILY #30 tab Diet: Regular Activity: Ad jarek Time spent managing pt's care (in minutes): 38
[2022-11-08] MEDS ORDERED: ERTAPENEM SODIUM 1 GM VIAL IVPB ONE (14:56)
[2022-11-08] MEDS ORDERED: ERTAPENEM NA 1 GM in NA CHLORIDE 0.9% 50 ML IVPB ONE (16:00)
[2022-11-08] MEDS ORDERED: ERTAPENEM NA 1 GM in NA CHLORIDE 0.9% 100 ML IVPB ONE (16:00)
[2022-11-08 20:30] VITALS: O2SAT 100
[2022-11-08 20:34] VITALS: BP 108/57; TEMP 97.2
== END 2022-11-08 18:05 | disposition home or self-care (01) | DRG 872 ==
LOC: ER 06:27 → ERHOLD 09:04 → 4TH 09:55
PROVIDERS: ADMIT Hospitalist; ATTEND Internal Medicine
PROC: 02HV33Z Insertion of Infusion Device into Superior Vena Cava, Percutaneous Approach (ICD-10-PCS; principal; 2022-11-05)
DX: A41.51 Sepsis due to Escherichia coli [E. coli] (principal); N10 Acute pyelonephritis; Z16.12 Extended spectrum beta lactamase (ESBL) resistance; D50.9 Iron deficiency anemia, unspecified; E86.0 Dehydration; M54.2 Cervicalgia; G43.909 Migraine, unspecified, not intractable, without status migrainosus; Z88.1 Allergy status to other antibiotic agents; Z79.899 Other long term (current) drug therapy; Z87.891 Personal history of nicotine dependence
CPT/HCPCS: 36415; 72126; 74176; 80048; 80053; 81001; 81025; 82728; 82947; 83540; 83605; 83735; 84100; 84132; 84145; 84439; 84443; 84466; 85025; 85027; 85044; 85610; 85730; 86140; 87040; 87077; 87086; 87088; 87186; 87205; 93005; 96361; 96374; 99285; J1335; J1650; J2185; J2270; J2405; J3475; J7030; Q9967

== ENCOUNTER 2022-11-13 23:28 | Emergency (ER) | payer SELFPAY ==
--- OUTSIDE RECORDS SUMMARY | 2022-11-13 23:32 | XMS REPORT | Continuity of Care Document ---
:1985 Author Organization [facility] t Address [address] [facility] [address] [place] [id number] Care Team Providers Name Role Phone Doctor Unassigned, [place] Attending Clinician Unavailable Noy Gar Attending Clinician [...] steril[place] [facility] Abnormal Abnormal Disease Active 2019-04 Unive rs uterine uterine 0-29 ity of bleeding bleeding 00:00: [place] [facility] Pain Pain Disease Active 2019-04 Univers pelvic pelvic 0-29 ity of 00:00: [address] Bacterial Bacterial Disease Active 2016-04 Uni vers nephritis nephritis 2-27 ity of 00:00: [address] Allergies, Adverse Reactions, Alerts Allergy Allergy Status Severity Reaction(s) Onset Inactive Treating Comm ents Source Name Type Date Date Clinician Hydrocod Propensi Active Nausea 2016-04 Univer s one ty to and/or 2-27 ity of adverse Vomiting 00:00: [place] reaction 00 [facility] HYDROCOD DRUG Active N/V 2016-04 Univers ONE INGREDI 2-27 ity of 00:00: [place] 00 [facility] Social History Social Habit Start Date Stop Date Quantity Comments Source History of Smoker University of tobacco use [facility] Tobacco use and 2020-02-11 2020-02-11 Never used Universit y of exposure 00:00:00 00:00:00 [facility] Alcohol Comment 2020-02-11 2020-02-11 SOCIAL Universit y of 00:00:00 00:00:00 [facility] Alcohol intake 2020-02-11 2020-02-11 Current drinker Unive rsity of 00:00:00 00:00:00 of alcohol [facility] (finding) [facility] Sex Assigned At [birth year] Universit y of 00:00:00 00:00:00 [facility] Smoking Status Start Date Stop Date Source Former smoker 2020-02-11 00:00:00 2020-02-11 00:00:00 Universi ty of [facility] Medications Ordered Filled Start Stop Current Ordering Indication Dosage Frequency Signature Comments Components Source Medication Medication Date Date Medication? Clinician (SIG) Name Name cyanocobala 2019-04 Yes Inject as U nivers min, 0-29 directed. ity of vitamin 18:33: [place] B-12, 12 Medical (CUSTOMER SERVICE TELLER-B12 Branch INJECTION) cyanocobala 2019-04 Yes Inject as U nivers min, 0-29 directed. ity of vitamin 18:33: [place] B-12, 12 Medical (CUSTOMER SERVICE TELLER-B12 Branch INJECTION) cyanocobala 2019-04 Yes Inject as U nivers min, 0-29 directed. ity of vitamin 18:33: [place] B-12, 12 Medical (CUSTOMER SERVICE TELLER-B12 Branch INJECTION) cyanocobala 2019-04 Yes Inject as U nivers min, 0-29 directed. ity of vitamin 18:33: [place] B-12, 12 Medical (CUSTOMER SERVICE TELLER-B12 Branch INJECTION) cyanocobala 2019-04 Yes Inject as U nivers min, 0-29 directed. ity of vitamin 18:33: [place] B-12, 12 Medical (CUSTOMER SERVICE TELLER-B12 Branch INJECTION) cyanocobala 2019-04 Yes Inject as U nivers min, 0-29 directed. ity of vitamin 18:33: [place] B-12, 12 Medical (CUSTOMER SERVICE TELLER-B12 Branch INJECTION) cyanocobala 2019-04 Yes Inject as U nivers min, 0-29 directed. ity of vitamin 18:33: [place] B-12, 12 Medical (CUSTOMER SERVICE TELLER-B12 Branch INJECTION) cyanocobala 2019-04 Yes Inject as U nivers min, 0-29 directed. ity of vitamin 18:33: B-12, 12 Medical (CUSTOMER SERVICE TELLER-B12 Branch INJECTION) cyanocobala 2019-04 Yes Inject as U nivers min, 0-29 directed. ity of vitamin 18:33: B-, 12 Medical (CUSTOMER SERVICE TELLER-B12 Branch INJECTION) cefpodoxime 2016-04 Yes 200mg Take [...] Source Body height 2020-02-11 18:30:00 154.9 cm [facility] Body weight 2020-02-11 18:30:00 65.403 kg [facility] BMI 2020-02-11 18:30:00 27.24 kg/m2 Universi ty of [facility] Systolic blood 2020-02-11 18:30:00 102 mm[Hg] Univer sity of pressure [place] [facility] Diastolic blood 2020-02-11 18:30:00 67 mm[Hg] Unive rsity of pressure [place] [facility] Heart rate 2020-02-11 18:30:00 83 /min Universi ty of [facility] Body temperature 2020-02-11 18:30:00 36.28 Fabiana Univ ersity of [facility] Respiratory rate 2020-02-11 18:30:00 18 /min Univ ersity of [facility] Body height 2020-02-11 18:30:00 154.9 cm Universi ty of [facility] Body weight 2020-02-11 18:30:00 65.403 kg Universi ty of [facility] BMI 2020-02-11 18:30:00 27.24 kg/m2 Universi ty of [facility] Systolic blood 2020-02-11 18:30:00 102 mm[Hg] Univer sity of pressure [facility] Diastolic blood 2020-02-11 18:30:00 67 mm[Hg] Unive rsity of pressure [facility] Heart rate 2020-02-11 18:30:00 83 /min Universi ty of [facility] Body temperature 2020-02-11 18:30:00 36.28 Fabiana [facility] Respiratory rate 2020-02-11 18:30:00 18 /min [facility] Procedures Procedure Date / Time Performing Clinician Source Performed PATIENT CORRESPONDENCE 2020-08-18 05:01:00 Doctor Unassigned, [facility] (LETTERS, USPS [facility] DOCUMENTATION) NOTICE OF PRIVACY 2020-02-11 17:52:50 Doctor Unassed, [facility] PRACTICES [facility] POCT TEST 2020-02-11 00:00:00 Aris Hubbard [facility] Branch Encounters Start End Encounter Admission Attending Care Care Encounter Source Date/Time Date/Time Type Type Clinicians Facility Department ID 2020-08-18 2020-08-18 Orders Doctor FRITZ [id number] 00:00:00 00:00:00 Only UnassJOE ward [id number] ity of [place] [facility] [id number] Miguelangel as [id number] [place] [address] Branch 2020-08-01 2020-08-01 Case ZACH Ríos [id number] Univers 00:00:00 00:00:00 Management [facility] [id number] ity of [id number] [id number] [address] 2020-07-19 2020-07-19 Outpatient R [facility] [id number] Univers 10:00:00 10:00:00 ity [facility] 2020-07-19 2020-07-19 Telephone SHARAD Ríos [id number] Univers 00:00:00 00:00:00 [facility] [id number] i [id number] [id number] [address] 2020-05-19 2020-05-19 Outpatient R [facility] [id number] Univers 10:00:00 10:00:00 ity [facility] 2020-05-19 2020-05-19 Telephone SHARAD Ríos [id number] Univers 00:00:00 00:00:00 [facility] [id number] i ty [id number] [id number] [address] 2020-05-19 2020-05-19 Letter SHARAD Ríos [id number] Univers 00:00:00 00:00:00 (Out) [facility] [id number] i ty [id number] [id number] [address] 2020-03-03 2020-03-03 Outpatient R [facility] [id number] Univers 11:00:00 11:00:00 ity [facility] 2020-03-03 2020-03-03 Outpatient R [facility] [id number] Univers 10:30:00 10:30:00 ity [facility] 2020-03-03 2020-03-03 [facility] [id number] 00:00:00 00:00:00 [facility] [id number] CLINICS [id number] [facility] 2020-03-03 2020-03-03 Letter [facility] [id number] 00:00:00 00:00:00 (Out) [facility] [id number] CLINICS [id number] [facility] 2020-03-03 2020-03-03 Telephone [facility] [id number] Univers 00:00:00 00:00:00 [facility] [id number] i ty [id number] [id number] [address] 2020-03-03 2020-03-03 Letter [facility] [id number] Univers 00:00:00 00:00:00 (Out) [facility] [id number] i ty [id number] [id number] [address] 2020-02-24 2020-02-24 Outpatient R [facility] [id number] Univers 15:30:00 15:30:00 [facility] 2020-02-24 2020-02-24 Outpatient R [facility] [id number] Univers 12:30:00 12:30:00 [facility] 2020-02-11 2020-02-11 Office [facility] [id number] 12:57:49 14:29:44 Visit Aris Guthrie HATCHERY MANAGER [id number] REGIONAL [id number] MATERNAL [id number] & CHILD [address] [place] [address] 2020-02-11 2020-02-11 Office [facility] [id number] Univers 12:57:49 14:29:44 Visit Aris Guthrie HATCHERY MANAGER [id number] it y of REGIONAL [id number] Miguelangel as MATERNAL [id number] Med ical & CHILD [address] [place] [address] 2020-02-11 2020-02-11 Outpatient R HAYDEE [facility] [id number] [facility] 12:30:00 12:30:00 ARIS del cid [facility] 2020-02-11 2020-02-11 Orders Doctor CATRINA [id number] Univers 00:00:00 00:00:00 Only Unassigned, JOE [id number] ity of [place] [facility] [id number] Miguelangel as [phone] [address] Results Test Description Test Time Test Comments Results Result Comments Source POCT TEST 2020-02-11 19:00:00 Test Item Value Reference Range Interpretation Comme nts POCT PREG (test code = 1605) Negative On board controls acceptable with C Line (test code = 3574) Yes POCT PREG LOT # (test code = 3575) POCT PREG TEST DATE (test code = 3576[id number] 19:00:00 Test Item Value Reference Range Interpretation Comments POCT PREG (test code = 1605) Negative On board controls acceptable with C Yes Line (test code = 3574) POCT PREG LOT # (test code = 3575) POCT PREG TEST DATE (test code = 3576) [facility]
--- NOTE | 2022-11-14 00:23 | EDPHYS ---
Physician Documentation [facility] Name: Genesis Martel Age: 37 yrs Sex: Female : 1985 Arrival Date: 11/13/2022 Time: 23:28 Bed 20 Private MD: ED Physician Geovanny Gonzalez HPI: 11/14 00:01 This 37 yrs old Female presents to ER via Unassigned with complaints of PICC sp4 LINE REMOVAL. 00:16 Patient is here desiring removal of her right arm midline IV access. Patient was sp4 admitted here on 10/31/2022 for ESBL UTI with bacteremia. Patient finished her ertapenem infusion yesterday 11/13/2022. Discharge instructions recommend midline removal after completion of antibiotics. Patient is here desiring removal of her midline. - Discharge instructions state the following : Received with this packet on 11/08/22 at 17:28 Bacteremia, Adult ESBL Infection Ertapenem Injection Iron Capsules or Tablets (Supplement) Urinary Tract Infection, Adult Care Plan Goals: PROBLEM: (pyelonephritis, ESBL, UTI, bacteremia) GOAL: Clear understanding of disease process INSTRUCTIONS: IV Ertapenem 1 gm daily for 7 days. Perform hand hygeine before using midline. Keep midline clean and dry. Flush midline with 10ml normal saline before and after use. After completion of IV antibiotics, go to Options to have midline removed or may return to ER to have midline removed. Follow up with your PCP or clininc in 1 weeks. . Historical: - Allergies: 00:02 Amoxicillin; cm10 - Home Meds: 00:02 None [Active]; cm10 - PMHx: 00:02 None; cm10 - PSHx: 00:02 None; cm10 - Immunization history:: Adult Immunizations unknown. - Social history:: Smoking status: Reported history of juuling and/or vaping. - Family history:: not pertinent. ROS: 00:16 Constitutional: Negative for fever, chills, and weight loss. sp4 00:16 All other systems are negative. Exam: 00:16 Constitutional: This is a well developed, well nourished patient who is awake, alert, sp4 and in no acute distress. Head/Face: Normocephalic, atraumatic. Eyes: Pupils equal round and reactive to light, extra-ocular motions intact. Lids and lashes normal. Conjunctiva and sclera are not injected. Cornea within normal limits. Periorbital areas with no swelling, redness, or edema. ENT: Nares patent. No nasal discharge, no septal abnormalities noted. Tympanic membranes are normal and external auditory canals are clear. Oropharynx with no redness, swelling, or masses, exudates, or evidence of obstruction, uvula midline. Mucous membranes moist. Neck: Trachea midline, no thyromegaly or masses palpated, and no cervical lymphadenopathy. Supple, full range of motion without nuchal rigidity, or vertebral point tenderness. Chest/axilla: Normal chest wall appearance and motion. Nontender with no deformity. No lesions are appreciated. Cardiovascular: Regular rate and rhythm with a normal S1 and S2. No gallops, murmurs, or rubs. Normal PMI, no JVD. No pulse deficits. There is right arm midline IV access. Respiratory: Lungs have equal breath sounds bilaterally, clear to auscultation and percussion. No rales, rhonchi or wheezes noted. No increased work of breathing, no retractions or nasal flaring. Abdomen/GI: Soft, non-tender, with normal bowel sounds. No distension or tympany. No guarding or rebound. No evidence of tenderness throughout. Back: No spinal tenderness. No costovertebral tenderness. Pelvic Exam: Normal external genitalia. Speculum exam with closed cervical os, no discharge or bleeding noted. Bimanual exam with normal adnexa, no adnexal or cervical motion tenderness. Normal uterus. Female : Normal external genitalia. Skin: Warm, dry with normal turgor. Normal color with no rashes, no lesions, and no evidence of cellulitis. MS/ Extremity: Pulses equal, no cyanosis. Neurovascular intact. Full, normal range of motion. Neuro: Awake and alert, GCS 15, oriented to person, place, time, and situation. Cranial nerves II-XII grossly intact. Motor strength 5/5 in all extremities. Sensory grossly intact. Psych: Awake, alert, with orientation to person, place and time. Behavior, mood, and affect are within normal limits Vital Signs: 00:00 BP 118 / 76; Pulse 83; Resp 18; Temp 98.1; Pulse Ox 100% ; Weight 63.05 kg; Height 5 cm10 ft. 1 in. ; Pain 0/10; 00:00 Body Mass Index 26.26 (63.05 kg, 154.94 cm) cm10 00:00 Pain Scale: Adult cm10 MDM: 00:16 Differential Diagnosis Vascular access removal. Vascular access in place. Vascular sp4 access infection. Data reviewed: vital signs, nurses notes, old medical records. ED course: Midline was removed in the ER patient stable for discharge home . . 00:22 Patient medically screened. sp4 Administered Medications: No medications were administered Disposition Summary: 11/14/22 00:22 Discharge Ordered Location: Home sp4 Problem: new sp4 Symptoms: have improved sp4 Condition: Stable sp4 Diagnosis - Vascular access midline removal sp4 Followup: sp4 - With: Omar Sutton MD - When: 7 - 10 days - Reason: Recheck today's complaints Discharge Instructions: - Discharge Summary Sheet sp4 - IV Infusion Therapy sp4 Forms: - Patient Portal Instructions sp4 Signatures: Geovanny Gonzalez MD MD sp4 Ligia Ramirez RN RN cm10
--- NOTE | 2022-11-14 00:23 | ER ---
Nurse's Notes [facility] Name: Genesis Martel Age: 37 yrs Sex: Female : 1985 Arrival Date: 11/13/2022 Time: 23:28 Bed 20 Private MD: Diagnosis: Vascular access midline removal Presentation: 11/14 00:00 Chief complaint: Patient states: here to have picc line to left arm removed. Pt had cm10 PICC line placed last Saturday and completed treatment for "infection in my blood" today and was told could have it removed in the ED. Pt denies any fevers, no drainage to insertion site. Coronavirus screen: Vaccine status: Patient reports being unvaccinated. Client denies travel out of the [place] in the last 14 days. Ebola Screen: Patient denies travel to an Ebola-affected area in the 21 days before illness onset. No symptoms or risks identified at this time. Initial Sepsis Screen: Does the patient meet any 2 criteria? No. Patient's initial sepsis screen is negative. Does the patient have a suspected source of infection? No. Patient's initial sepsis screen is negative. Risk Assessment: Do you want to hurt yourself or someone else? Patient reports no desire to harm self or others. Onset of symptoms was November 14, 2022. 00:00 Method Of Arrival: Ambulatory cm10 00:00 Acuity: DREW 4 cm10 Historical: - Allergies: 00:02 Amoxicillin; cm10 - Home Meds: 00:02 None [Active]; cm10 - PMHx: 00:02 None; cm10 - PSHx: 00:02 None; cm10 - Immunization history:: Adult Immunizations unknown. - Social history:: Smoking status: Reported history of juuling and/or vaping. - Family history:: not pertinent. Screenin:25 [facility] ED Fall Risk Assessment (Adult) History of falling in the last 3 months, jb4 including since admission No falls in past 3 months (0 pts) Confusion or Disorientation No (0 pts) Score/Fall Risk Level 0 - 2 = Low Risk Oriented to surroundings, Maintained a safe environment. Abuse screen: Denies threats or abuse. Nutritional screening: No deficits noted. Tuberculosis screening: No symptoms or risk factors identified. Assessment: 00:25 General: Appears in no apparent distress. comfortable, Behavior is calm, cooperative. jb4 Pain: Denies pain. Neuro: Level of Consciousness is awake, alert, obeys commands, Oriented to person, place, time, situation. Cardiovascular: Patient's skin is warm and dry. Respiratory: Airway is patent Respiratory effort is even, unlabored, Respiratory pattern is regular, symmetrical. Vital Signs: 00:00 BP 118 / 76; Pulse 83; Resp 18; Temp 98.1; Pulse Ox 100% ; Weight 63.05 kg; Height 5 cm10 ft. 1 in. ; Pain 0/10; 00:00 Body Mass Index 26.26 (63.05 kg, 154.94 cm) cm10 00:00 Pain Scale: Adult cm10 ED Course: 11/13 23:34 Patient arrived in ED. ag3 11/14 00:01 Geovanny Gonzalez MD is Attending Physician. sp4 00:02 Triage completed. cm10 00:02 Arm band placed on Patient placed in an exam room, on a stretcher. cm10 00:20 Omar Sutton MD is Referral Physician. sp4 00:25 Arturo Hayes, RN is Primary Nurse. jb4 00:25 Patient has correct armband on for positive identification. jb4 00:25 No provider procedures requiring assistance completed. Midline removed, intact, jb4 dressing in place, bleeding controlled. Administered Medications: No medications were administered Medication: 00:25 VIS not applicable for this client. jb4 Outcome: 00:22 Discharge ordered by . sp4 00:25 Discharged to home ambulatory, with family. jb4 00:25 Condition: stable 00:25 Discharge instructions given to Did not want to wait to receive D/c instructions. 00:30 Patient left the ED. jb4 Signatures: Arturo Hayes, RN RN jb4 Gila Jordan 3 Geovanny Gonzalez MD MD sp4 Ligia Ramirez RN RN cm10
[2022-11-14 00:56] VITALS: BP 118/76; TEMP 98.1; O2SAT 100
== END 2022-11-14 00:30 | disposition home or self-care (01) ==
LOC: ER 23:28
DX: Z45.2 Encounter for adjustment and management of vascular access device (principal)

== ENCOUNTER 2023-07-31 10:29 | Emergency (ER) | payer SELFPAY ==
[2023-07-31] MEDS ORDERED: NA CHLORIDE 0.9% 1,000 ML ONE (11:16)
[2023-07-31] MEDS ORDERED: ONDANSETRON 4 MG/2 ML VIAL ONE (11:16)
[2023-07-31 11:33] LABS: Absolute Eosinophils 0.2 K/uL (0-0.5); Absolute Lymphocytes (CBC) 1.8 K/uL (0.7-4.9); Absolute Monocytes 0.4 K/uL (0.1-1.3); Absolute Neutrophil 2.8 K/uL (1.8-8.0); Basophils % 0.5 % (0-1.3); Eosinophils % 3.5 % (0-4.4); Hematocrit 30.6 % (36.0-45.0); Hemoglobin 9.9 g/dL (12.0-15.0); Lymphocytes % 34.5 % (15.3-44.8); MCH 26.2 pg (27.0-35.0); MCHC 32.3 g/dL (32.0-36.0); MPV 8.3 fL (7.6-11.3); Monocytes % 6.9 % (3.3-12.3); Neutrophils % 54.6 % (41.7-73.7); Platelets 280 thou/uL (152-406); RBC Red Blood Cell Count 3.77 M/uL (3.86-4.86); Red Cell Distribution Width 14.8 % (12.1-15.2)
[2023-07-31 11:55] LABS: Albumin 3.2 g/dL (3.4-5.0); Albumin/Globulin Ratio 0.9 (1.1-1.8); Anion Gap 8.8 mEq/L (5.0-15.0); Bilirubin Total 0.3 mg/dL (0.2-1.0); Globulin 3.4 g/dL (2.3-3.5); Potassium 3.8 mEq/L (3.5-5.1); Protein, Total 6.6 g/dL (6.4-8.2)
[2023-07-31 12:22] LABS: Specific Gravity 1.006 (1.005-1.030)
[2023-07-31 12:24] LABS: Specific Gravity 1.006 (1.005-1.030); Sqamous Epithelial <5 /HPF (None Seen); Urine Bacteria <20 /HPF (<20); Urine Bilirubin NEGATIVE (Negative); Urine Blood Negative (Negative); Urine Clarity Clear (Clear); Urine Color Colorless (Yellow); Urine Culture Reflex Order NOT NEEDED; Urine Glucose NEGATIVE (Negative); Urine Ketones NEGATIVE (Negative); Urine Micro Reflex YN NO BILL MICROSCOPIC; Urine Mucus Slight /HPF (None Seen); Urine Nitrite NEGATIVE (Negative); Urine Protein NEGATIVE (Negative); Urine RBC <5 /HPF (None Seen); Urine Urobilinogen Normal (Normal); Urine WBC <5 /HPF (<5)
--- NOTE | 2023-07-31 13:03 | RAD REPORT ---
EXAM DESCRIPTION: CT - Abdomen Pelvis Wo Contrast - 07/31/2023 12:55 pm CLINICAL HISTORY: Abdominal pain. ABD PAIN COMPARISON: Abdomen Pelvis W Contrast dated 04/17/2023 TECHNIQUE: CT imaging of the abdomen and pelvis was performed without contrast. Solid organ, bowel a nd vascular assessment is limited due to lack of IV and oral contrast. All CT scans are performed using dose optimization technique as appropriate and may include automated exposure control or mA/KV adjustment according to patient size. FINDINGS: Mild linear atelectasis/ scarring in the right lung base. The liver, spleen, pancreas, adrenal glands and kidneys are within normal limits for a limited non-co ntrast examination. No bowel obstruction, free air, free fluid or abscess. Significant stool is present retained througho ut the colon. The appendix is normal. The osseous structures are within normal limits. IMPRESSION: No acute intra-abdominal or pelvic findings. Prominent retained stool throughout the col on. A limited non-contrast examination was performed as detailed.
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
[2023-07-31 21:45] VITALS: BP 93/63; TEMP 97.2; O2SAT 98
== END 2023-07-31 13:16 | disposition home or self-care (01) ==
LOC: ER 10:29
DX: K59.00 Constipation, unspecified (principal)
CPT/HCPCS: 36415; 74176; 80053; 81001; 81025; 85025; J2405; J7030

== ENCOUNTER 2023-11-25 15:11 | Emergency (ER) | payer OTHER ==
--- OUTSIDE RECORDS SUMMARY | 2023-11-25 15:14 | XMS REPORT | Continuity of Care Document ---
Author Name Unknown Address [address] [facility] Juan Daniel. [address] [place] [address] [facility] Address [address] [facility] Juan Daniel[address] [place] [address] Care Team Providers Care Medical Technologist Chemistry Name Role Phone Samantha Trevizo Primary Care Physician Doctor Unassigned, [place] Attending Clinician U Noy Arias Attending Clinician [phone] Aris Esparza Attending Clinician [phone] ARIS HUBBARD Attending Clinician Unavailabl e Payers Payer Name Policy Type Policy Number Effective Date Expirati on Date Source Problems Condition Name Condition Details Condition Category Status Onset Date Resolution Date Last Treatment Date Treating Clinician Comments Source History of female sterilizat ion History of female sterilizat ion Disease Active 2019-04 00:00: 00 [facility] Abnormal uterine bleeding Abnormal uterine bleeding Disease Active 2019-04 00:00: 00 [facility] Pain pelvic Pain pelvic Disease Active 2019-04 00:00: 00 [facility] Bacterial nephritis Bacterial nephritis Disease Active 2016-04 00:00: 00 [facility] Allergies, Adverse Reactions, Alerts Allergy Name Allergy Type Status Severity Reaction(s) Onset Date Inactive Date Treating Clinician Comments Source Hydrocod one Propensi ty to adverse reaction s Active Nausea and/or Vomiting 2016-04 00:00: 00 [facility] HYDROCOD ONE DRUG INGREDI Active N/V 2016-04 00:00: 00 [facility] Social History Social Habit Start Date Stop Date Quantity Comments Source History of tobacco use Cigarette Smoker [facility] Sexual orientation U [facility] Tobacco use and exposure 2020-02-11 00:00:00 2020-02-11 00:00:00 Smokeless tobacco non-user [facility] Alcohol Comment 2020-02-11 00:00:00 2020-02-11 00:00:00 SOCIAL [facility] Alcohol intake 2020-02-11 00:00:00 2020-02-11 00:00:00 Current drinker of alcohol (finding) [facility] History of Social function 2020-02-11 00:00:00 2020-02-11 00:00:00 [facility] Sex Assigned At 1985 00:00:00 1985 00:00:00 [facility] Smoking Status Start Date Stop Date Source Ex-smoker 2020-02-11 00:00:00 2020-02-11 00:00:00 [facility] Never smoker [facility] Medications Ordered Medication Name Filled Medication Name Start Date Stop Date Current Medication? 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 [facility] cyanocobala min, vitamin B-12, (WEED SCIENCE RESEARCH TECHNICIAN-B12 INJECTION) 2019-04 13:33: 12 Yes Inject as directed. [facility] cefpodoxime 200 mg tablet 2016-04 00:00: 00 02-10 00:00 :00 No 200mg Take 1 tablet by mouth 2 (two) times daily. [facility] traMADOL 50 mg tablet 2016-04 00:00: 00 02-10 00:00 :00 No 50mg Take 1 tablet by mouth every 6 (six) hours as needed for Pain (scale 4-6) or Pain (scale 7-10). [facility] Vital Signs Vital Name Observation Time Observation Value Comments S ource Systolic blood pressure 2020-02-11 18:30:00 102 mm[Hg] [facility] Diastolic blood pressure 2020-02-11 18:30:00 67 mm[Hg] [facility] Heart rate 2020-02-11 18:30:00 83 /min [facility] Body temperature 2020-02-11 18:30:00 36.28 Fabiana [facility] Respiratory rate 2020-02-11 18:30:00 18 /min [facility] Body height 2020-02-11 18:30:00 154.9 cm [facility] Body weight 2020-02-11 18:30:00 65.403 kg [facility] BMI 2020-02-11 18:30:00 27.24 kg/m2 [facility] Systolic blood pressure 2020-02-11 18:30:00 102 mm[Hg] [facility] Diastolic blood pressure 2020-02-11 18:30:00 67 mm[Hg] [facility] Heart rate 2020-02-11 18:30:00 83 /min [facility] Body temperature 2020-02-11 18:30:00 36.28 Fabiana [facility] Respiratory rate 2020-02-11 18:30:00 18 /min [facility] Body height 2020-02-11 18:30:00 154.9 cm [facility] Body weight 2020-02-11 18:30:00 65.403 kg [facility] BMI 2020-02-11 18:30:00 27.24 kg/m2 [facility] Procedures Procedure Date / Time Performed Performing Clinician Source PATIENT CORRESPONDENCE (LETTERS, USPS DOCUMENTATION) 2020-08-18 05:01:00 Doctor Unassigned, [place] [facility] NOTICE OF PRIVACY PRACTICES 2020-02-11 17:52:50 Doctor Unassigned, [place] [facility] POCT TEST 2020-02-11 00:00:00 Sea Hubbard [facility] Encounters Start Date/Time End Date/Time Encounter Type Admission Type Attending Clinicians Care Facility Care Department Encounter ID Source 2020-08-18 00:00:00 2020-08-18 00:00:00 Orders Only Doctor Unassigned, [place] [facility] [id number] 350.1.13.10 4.2.7.2.686 [id number] [facility] 2020-08-01 00:00:00 2020-08-01 00:00:00 Case Management [facility] [id number] [id number] 4.2.7.2.686 [id number] [facility] 2020-07-19 10:00:00 2020-07-19 10:00:00 Outpatient R [facility] [id number] [facility] 2020-07-19 00:00:00 2020-07-19 00:00:00 Telephone [facility] [id number] [id number] [id number] [id number] [facility] 2020-05-19 10:00:00 2020-05-19 10:00:00 Outpatient R [facility] [id number] [facility] 2020-05-19 00:00:00 2020-05-19 00:00:00 Telephone [facility] [id number] [id number] 4.2.7.2.686 [id number] [facility] 2020-05-19 00:00:00 2020-05-19 00:00:00 Letter (Out) [facility] [id number] 350.1.13.10 4.2.7.2.686 [id number] [facility] 2020-03-03 11:00:00 2020-03-03 11:00:00 Outpatient R [facility] [id number] [facility] 2020-03-03 10:30:00 2020-03-03 10:30:00 Outpatient R [facility] [id number] [facility] 2020-03-03 00:00:00 2020-03-03 00:00:00 Telephone [facility] 1..114 350.1.13.10 4.2.7.2.686 [id number] 2020-03-03 00:00:00 2020-03-03 00:00:00 Letter (Out) [facility] 1..114 350.1.13.10 4.2.7.2.686 [id number] 2020-03-03 00:00:00 2020-03-03 00:00:00 Telephone [facility] 1..114 350.1.13.10 4.2.7.2.686 [id number] [facility] 2020-03-03 00:00:00 2020-03-03 00:00:00 Letter (Out) [facility] 1..114 350.1.13.10 4.2.7.2.686 [id number] [facility] 2020-02-24 15:30:00 2020-02-24 15:30:00 Outpatient R [facility] [id number] [facility] 2020-02-24 12:30:00 2020-02-24 12:30:00 Outpatient R [facility] [id number] [facility] 2020-02-15 00:00:00 2020-02-15 00:00:00 Patient Secure Msg Doctor Unassigned, [place] [facility] TALENT MANAGEMENT SPECIALIST [facility] CHILD [facility] 1..114 350.1.13.10 4.2.7.2.686 [id number] [facility] 2020-02-12 00:00:00 2020-02-12 00:00:00 Patient Secure Msg Doctor Unassigned, [place] [facility] TALENT MANAGEMENT SPECIALIST [facility] & CHILD [facility] ..114 350.1.13.10 4.2.7.2.686 [id number] [facility] 2020-02-11 12:57:49 2020-02-11 14:29:44 Office Visit Aris Hubbard Jerri [facility] TALENT MANAGEMENT SPECIALIST [facility] & CHILD [facility] 1.2.840.114 350.1.13.10 4.2.7.2.686 [id number] 2020-02-11 12:57:49 2020-02-11 14:29:44 Office Visit Aris Hubbard Jerri [facility] TALENT MANAGEMENT SPECIALIST [facility] & CHILD [facility] 1.2.840.114 350.1.13.10 4.2.7.2.686 [id number] [facility] 2020-02-11 12:30:00 2020-02-11 12:30:00 Outpatient R ARIS HUBBARD [facility] [id number] [facility] 2020-02-11 00:00:00 2020-02-11 00:00:00 Orders Only Doctor Unassigned, [place] [facility] [id number] 350.1.13.10 [id number] [id number] [facility] Results Test Description Test Time Test Comments Results Result Co mments Source [id number] 19:00:00* Test Item Value Reference Range Interpretation Comme nts POCT PREG (test code = 1605) Negative On board controls acceptable with C Line (test code = 3574) Yes POCT PREG LOT # (test code = 3575) POCT PREG TEST DATE ( test code = 3576) [facility]
[2023-11-25 16:56] LABS: Specific Gravity 1.006 (1.005-1.030)
[2023-11-25 16:58] LABS: Absolute Lymphocytes (CBC) 1.5 K/uL (0.7-4.9); Absolute Monocytes 0.7 K/uL (0.1-1.3); Absolute Neutrophil 6.7 K/uL (1.8-8.0); Basophils % 0.3 % (0-1.3); Eosinophils % 0.2 % (0-4.4); Hematocrit 31.4 % (36.0-45.0); Hemoglobin 10.3 g/dL (12.0-15.0); Lymphocytes % 16.9 % (15.3-44.8); MCH 26.5 pg (27.0-35.0); MCHC 32.8 g/dL (32.0-36.0); MCV 80.9 fL (80-100); MPV 8.3 fL (7.6-11.3); Monocytes % 8.2 % (3.3-12.3); Neutrophils % 74.4 % (41.7-73.7); Platelets 255 thou/uL (152-406); RBC Red Blood Cell Count 3.88 M/uL (3.86-4.86); Red Cell Distribution Width 14.8 % (12.1-15.2)
[2023-11-25 17:03] LABS: Specific Gravity 1.006 (1.005-1.030); Sqamous Epithelial <5 /HPF (None Seen); Urine Bacteria <20 /HPF (<20); Urine Bilirubin NEGATIVE (Negative); Urine Blood 1+ (Negative); Urine Clarity Extremely Turbid (Clear); Urine Color Light-Yellow (Yellow); Urine Culture Reflex Order REFLEXED; Urine Glucose NEGATIVE (Negative); Urine Ketones NEGATIVE (Negative); Urine Microscopic Reflex YN ORDER UMIC; Urine Nitrite NEGATIVE (Negative); Urine Protein NEGATIVE (Negative); Urine RBC <5 /HPF (None Seen); Urine Urobilinogen Normal (Normal); Urine WBC >50 /HPF (<5)
[2023-11-25 17:07] LABS: Albumin 3.4 g/dL (3.4-5.0); Albumin/Globulin Ratio 0.9 (1.1-1.8); Anion Gap 11.3 mEq/L (5.0-15.0); Bilirubin Total 0.5 mg/dL (0.2-1.0); Globulin 3.8 g/dL (2.3-3.5); Potassium 3.3 mEq/L (3.5-5.1); Protein, Total 7.2 g/dL (6.4-8.2)
--- NOTE | 2023-11-25 17:42 | RAD REPORT ---
EXAM DESCRIPTION: CT - Stone Protocol - 11/25/2023 5:24 pm CLINICAL HISTORY: Abdominal pain. Left flank pain COMPARISON: July 2023 TECHNIQUE: Computed axial tomography of the abdomen pelvis was obtained without oral or IV contrast. Lack of IV and oral contrast limits evaluation of solid organs, appendix, bowel, and vessels. Schneider l reformatted images were obtained and reviewed. All CT scans are performed using dose optimization technique as appropriate and may include automated exposure control or mA/KV adjustment according to patient size. FINDINGS: A renal calculus is not seen. An ureteral calculus is not noted. A bladder calculus is not present. No hydronephrosis. The liver, spleen, pancreas and adrenals appear grossly normal There is no evidence of diverticulitis. The appendix appears normal 4.2 centimeter simple appearing left ovarian cyst. No follow-up recommended. No significant free. Tub al ligation coils present Tampon within the vagina. Moderate amount of stool throughout the colon IMPRESSION: Negative for a genitourinary calculus
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
[2023-11-25] MEDS ORDERED: NA CHLORIDE 0.9% 1,000 ML ONE (19:10)
[2023-11-25] MEDS ORDERED: CEFTRIAXONE 1000 MG/VIAL ONE (19:10)
[2023-11-25] MEDS ORDERED: NA CHLORIDE 0.9% 50 ML ONE (19:10)
[2023-11-25] MEDS ORDERED: POTASSIUM 25 MEQ EFFERV TAB ONE (19:10)
[2023-11-25] MEDS ORDERED: KETOROLAC 30 MG/ML INJ ONE (19:10)
[2023-11-25 20:43] VITALS: TEMP 99.8
[2023-11-25 20:49] VITALS: BP 101/68; O2SAT 96
== END 2023-11-25 20:32 | disposition home or self-care (01) ==
LOC: ER 15:11
DX: N39.0 Urinary tract infection, site not specified (principal)
CPT/HCPCS: 96365; 87088; 85025; 81001; 87086; 36415; 81025; 83690; 80053; 76377; 74176; 96375; 99284; J7030; J0696

== ENCOUNTER 2024-04-10 18:28 | Inpatient (IN) | payer OTHER, SELFPAY ==
--- OUTSIDE RECORDS SUMMARY | 2024-04-10 18:30 | XMS REPORT | Continuity of Care Document ---
Author Name Unknown Address [address] [facility] [address] [place] [address] [facility] Address [address] [facility] [address] [place] [address] Care Team Providers Care Plating Foreman Name Role Phone Sary Gaffney Primary Care Physician Doctor Unassigned, [place] Attending Clinician Noy Patel Attending Clinician [phone] ANGELICA HUBBARD Attending Clinician Angelica Fowler Attending Clinician [phone] Payers Payer Name Policy Type Policy Number Effective Date Expirati on Date Source Problems Condition Name Condition Details Condition Category Status Onset Date Resolution Date Last Treatment Date Treating Clinician Comments Source History of female sterilizat ion History of female sterilizat ion Disease Active 2019-04 00:00: 00 [facility] Abnormal uterine bleeding Abnormal uterine bleeding Disease Active 2019-04 00:00: 00 [facility] Pain pelvic Pain pelvic Disease Active 2019-04 00:00: 00 [facility] Bacterial nephritis Bacterial nephritis Disease Active 2016-04 00:00: 00 [facility] Allergies, Adverse Reactions, Alerts Allergy Name Allergy Type Status Severity Reaction(s) Onset Date Inactive Date Treating Clinician Comments Source Hydrocod one Propensi ty to adverse reaction s Active Nausea and/or Vomiting 2016-04 00:00: 00 [facility] HYDROCOD ONE DRUG INGREDI Active N/V 2016-04 00:00: 00 [facility] Social History Social Habit Start Date Stop Date Quantity Comments Source History of tobacco use Cigarette Smoker [facility] Sexual orientation U [facility] Tobacco use and exposure 2020-02-11 00:00:00 2020-02-11 00:00:00 Smokeless tobacco non-user [facility] Alcohol Comment 2020-02-11 00:00:00 2020-02-11 00:00:00 SOCIAL [facility] Alcohol intake 2020-02-11 00:00:00 2020-02-11 00:00:00 Current drinker of alcohol (finding) [facility] History of Social function 2020-02-11 00:00:00 2020-02-11 00:00:00 [facility] Sex Assigned At 1985 00:00:00 1985 00:00:00 [facility] Smoking Status Start Date Stop Date Source Ex-smoker 2020-02-11 00:00:00 2020-02-11 00:00:00 U [facility] Never smoker [facility] Medications Ordered Medication Name Filled Medication Name Start Date Stop Date Current Medication? Ordering Clinician Indication Dosage Frequency Signature (SIG) Comments Components Source Sudafed 12 Hour 120 mg tablet,exte nded release 2023-04 00:00: 00 Yes 1mg Aaron Edwards Flokassi Allergy Relief 50 mcg/actuati on nasal spray,suspe nsion 2023-04 00:00: 00 Yes 12mcg/a ctuatio n Aaron Edwards cyanocobala min, vitamin B-12, (QUALITY RN-B12 INJECTION) 2019-04 18:33: 12 Yes Inject as directed. [facility] cyanocobala min, vitamin B-12, (QUALITY RN-B12 INJECTION) 2019-04 13:33: 12 Yes Inject as directed. [facility] cefpodoxime 200 mg tablet 2016-04 00:00: 00 02-10 00:00 :00 No 200mg Take 1 tablet by mouth 2 (two) times daily. [facility] traMADOL 50 mg tablet 2016-04 00:00: 00 02-10 00:00 :00 No 50mg Take 1 tablet by mouth every 6 (six) hours as needed for Pain (scale 4-6) or Pain (scale 7-10). [facility] Vital Signs Vital Name Observation Time Observation Value Comments Tristin fajardo Systolic blood pressure 2020-02-11 18:30:00 102 mm[Hg] [place] [facility] Diastolic blood pressure 2020-02-11 18:30:00 67 mm[Hg] [place] [facility] Heart rate 2020-02-11 18:30:00 83 /min [facility] Body temperature 2020-02-11 18:30:00 36.28 Fabiana [facility] Respiratory rate 2020-02-11 18:30:00 18 /min [facility] Body height 2020-02-11 18:30:00 154.9 cm [facility] Body weight 2020-02-11 18:30:00 65.403 kg [facility] BMI 2020-02-11 18:30:00 27.24 kg/m2 [facility] Systolic blood pressure 2020-02-11 18:30:00 102 mm[Hg] [facility] Diastolic blood pressure 2020-02-11 18:30:00 67 mm[Hg] [facility] Heart rate 2020-02-11 18:30:00 83 /min [facility] Body temperature 2020-02-11 18:30:00 36.28 Fabiana [facility] Respiratory rate 2020-02-11 18:30:00 18 /min [facility] Body height 2020-02-11 18:30:00 154.9 cm [facility] Body weight 2020-02-11 18:30:00 65.403 kg [facility] BMI 2020-02-11 18:30:00 27.24 kg/m2 [facility] BP Diastolic 2024-02-06 14:46:00 68 mm[Hg] Juan Daniel Edwards Weight Measured 2024-02-06 14:46:00 124.00 pounds Aaron Edwards Height Measured 2024-02-06 14:46:00 65.00 inches Aaron Edwards Body Temperature 2024-02-06 14:46:00 98.50 degrees Aaron Edwards Heart Rate 2024-02-06 14:46:00 86.00 /min Marisol Edwards Respiratory Rate 2024-02-06 14:46:00 18.00 /min Aaron Edwards BP Systolic 2024-02-06 14:46:00 118 mm[Hg] George Edwards Procedures Procedure Date / Time Performed Performing Clinician Source PATIENT CORRESPONDENCE (LETTERS, USPS DOCUMENTATION) 2020-08-18 05:01:00 Doctor Unassigned, [place] [facility] NOTICE OF PRIVACY PRACTICES 2020-02-11 17:52:50 Doctor Unassigned, [place] [facility] POCT TEST 2020-02-11 00:00:00 Sea Hubbard [facility] Encounters Start Date/Time End Date/Time Encounter Type Admission Type Attending Clinicians Care Facility Care Department Encounter ID Source 2024-02-06 14:45:03 2024-02-06 14:45:03 Outpatient [facility] [id number] Aaron Edwards 2024-02-06 00:00:00 2024-02-06 00:00:00 Outpatient Visit [facility] [id number] Aaron Edwards 2020-08-18 00:00:00 2020-08-18 00:00:00 Orders Only Doctor Unassigned, [place] [facility] 1..840.114 350.1.13.10 4.2.7.2.686 [id number] [facility] 2020-08-01 00:00:00 2020-08-01 00:00:00 Case Management [facility] 1.840.114 350.1.13.10 4.2.7.2.686 [id number] [facility] 2020-07-19 10:00:00 2020-07-19 10:00:00 Outpatient R [facility] [id number] [facility] 2020-07-19 00:00:00 2020-07-19 00:00:00 [facility]phone [facility] 1..114 350.1.13.10 4.2.7.2.686 [id number] [facility] 2020-05-19 10:00:00 2020-05-19 10:00:00 Outpatient R [facility] [id number] [facility] 2020-05-19 00:00:00 2020-05-19 00:00:00 Telephone [facility] 1..114 350.1.13.10 4.2.7.2.686 [id number] [facility] 2020-05-19 00:00:00 2020-05-19 00:00:00 Letter (Out) [facility] 1..114 350.1.13.10 4.2.7.2.686 [id number] [facility] 2020-03-03 11:00:00 2020-03-03 11:00:00 Outpatient R [facility] [id number] [facility] 2020-03-03 10:30:00 2020-03-03 10:30:00 Outpatient R [facility] [id number] [facility] 2020-03-03 00:00:00 2020-03-03 00:00:00 Telephone [facility] 1..114 350.1.13.10 4.2.7.2.686 [id number] 2020-03-03 00:00:00 2020-03-03 00:00:00 Letter (Out) [facility] 1..114 350.1.13.10 4.2.7.2.686 [id number] 2020-03-03 00:00:00 2020-03-03 00:00:00 Telephone [facility] 1..114 350.1.13.10 4.2.7.2.686 [id number] [facility] 2020-03-03 00:00:00 2020-03-03 00:00:00 Letter (Out) Noy Ríos [facility] 1.840.114 350.1.13.10 4.2.7.2.686 [id number] [facility] 2020-02-24 15:30:00 2020-02-24 15:30:00 Outpatient R [facility] [id number] [facility] 2020-02-24 12:30:00 2020-02-24 12:30:00 Outpatient R [facility] [id number] [facility] 2020-02-15 00:00:00 2020-02-15 00:00:00 Patient Secure Msg Doctor Unassigned, [place] [facility] 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 [facility] 1..840.114 350.1.13.10 4.2.7.2.686 [id number] [facility] 2020-02-12 00:00:00 2020-02-12 00:00:00 Patient Secure Msg Doctor Unassigned, [place] [facility] 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 [facility]ILD [facility] 1..840.114 350.1.13.10 4.2.7.2.686 [id number] [facility] 2020-02-11 13:00:00 2020-02-11 14:29:44 Outpatient R ANGELICA HUBBARD [facility] [id number] [facility] 2020-02-11 12:57:49 2020-02-11 14:29:44 Office Visit Angelica Hubbard [facility] 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 [facility] & CHILD [facility] 1..840.114 350.1.13.10 4.2.7.2.686 [id number] 2020-02-11 12:57:49 2020-02-11 14:29:44 Office Visit Angelica Hubbard [facility] 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 [facility] 1.840.114 350.1.13.10 4.2.7.2.686 [id number] [facility] 2020-02-11 00:00:00 2020-02-11 00:00:00 Orders Only Doctor Unassigned, [place] [facility] 1..840.114 350.1.13.10 4.2.7.2.686 [id number] [facility] Results Test Description Test Time Test Comments Results Result Co mments Source [id number]:00* Test Item Value Reference Range Interpretation Comme nts POCT PREG (test code = 1605) Negative On board controls acceptable with C Line (test code = 3574) Yes POCT PREG LOT # (test code = 3575) POCT PREG TEST DATE ( test code = 3576) [facility]
[2024-04-10] MEDS ORDERED: IBUPROFEN 200 MG TAB PO ONE (19:41)
[2024-04-10] MEDS ORDERED: ACETAMINOPHEN 500 MG TAB ONE (19:41)
[2024-04-10] MEDS ORDERED: CEFTRIAXONE 1000 MG/VIAL ONE (19:41)
[2024-04-10] MEDS ORDERED: NA CHLORIDE 0.9% 2,000 ML ONE (19:42)
[2024-04-10 19:50] LABS: Absolute Monocytes 0.7 K/uL (0.1-1.3); Absolute Neutrophil 8.4 K/uL (1.8-8.0); Basophils % 0.3 % (0-1.3); Eosinophils % 0.2 % (0-4.4); Hematocrit 32.7 % (36.0-45.0); Hemoglobin 10.3 g/dL (12.0-15.0); Lymphocytes % 10.1 % (15.3-44.8); MCH 24.2 pg (27.0-35.0); MCHC 31.6 g/dL (32.0-36.0); MCV 76.4 fL (80-100); MPV 8.8 fL (7.6-11.3); Monocytes % 6.8 % (3.3-12.3); Neutrophils % 82.6 % (41.7-73.7); Platelets 241 thou/uL (152-406); RBC Red Blood Cell Count 4.28 M/uL (3.86-4.86)
[2024-04-10 19:55] LABS: Specific Gravity 1.021 (1.005-1.030); Sqamous Epithelial None Seen /HPF (None Seen); Urine Bacteria None Seen /HPF (<20); Urine Bilirubin NEGATIVE (Negative); Urine Blood 2+ (Negative); Urine Clarity Extremely Turbid (Clear); Urine Color Light-Orange (Yellow); Urine Crystals Unidentified Moderate /HPF (None Seen); Urine Culture Reflex Order REFLEXED; Urine Glucose NEGATIVE (Negative); Urine Ketones 1+ (Negative); Urine Microscopic Reflex YN ORDER UMIC; Urine Mucus 4+ /HPF (None Seen); Urine Nitrite NEGATIVE (Negative); Urine Protein 2+ (Negative); Urine RBC 21-50 /HPF (None Seen); Urine Urobilinogen Normal (Normal); Urine WBC >50 /HPF (<5); Urine WBC Clump Many /HPF (None Seen); Urine Yeast (Budding) Moderate /HPF (None Seen)
[2024-04-10 20:08] LABS: Albumin 3.6 g/dL (3.4-5.0); Albumin/Globulin Ratio 0.9 (1.1-1.8); Anion Gap 8.2 mEq/L (5.0-15.0); Bilirubin Total 0.4 mg/dL (0.2-1.0); Potassium 3.2 mEq/L (3.5-5.1); Protein, Total 7.6 g/dL (6.4-8.2)
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
[2024-04-10 20:27] LABS: SARS-CoV-2 Antigen CONTROL BLUE LINE VIS/BG OK; SARS-CoV-2 Antigen Rapid Res Negative (Negative)
[2024-04-10] MEDS ORDERED: POTASSIUM 25 MEQ EFFERV TAB ONE (20:42)
[2024-04-10] MEDS ORDERED: Levofloxacin500mg IV 500 MG/100 ML BAG IV ONE (20:43)
--- NOTE | 2024-04-10 20:47 | RAD REPORT ---
EXAMINATION: TWO VIEW CHEST XR CLINICAL INDICATION: Female, 38 years old. [facility] MA[facility] Bed Name: 5 TECHNIQUE: 2 view radiographs of the chest were performed. COMPARISON: No prior exam. FINDINGS: The lungs are well inflated and clear apart from right costophrenic angle blunting on the AP view, wh ich may relate to small effusion or atelectasis. No pneumothorax or sizable effusion. The heart is normal in size. Mediastinal contours are unremarkable. Right atrium ninth rib deformities suggesting prior fractures. IMPRESSION: No acute or significant abnormalities apart from mild right costophrenic angle blunting of.
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
--- NOTE | 2024-04-10 21:11 | RAD REPORT ---
EXAMINATION: CT Abdomen Pelvis W Contrast CLINICAL INDICATION: Female, 38 years old. Abd pain;Fever;Flank pain TECHNIQUE: CT abdomen and pelvis was performed, after the administration of IV contrast, as per formerly [facility] protocol. Axial, sagittal and coronal reconstructions were obtained. One or more of the following dose reduction techniques were used: Automated exposure control, adjustment of the mA and k V according to patient size, and iterative reconstruction. Unless otherwise specified, incidental findings do not require dedicated imaging follow-up. COMPARISON: 04/17/2023 and 11/25/2023 CTs of the abdomen and pelvis FINDINGS: LOWER CHEST: The visualized lung bases are clear apart from stable right basilar platelike atelectasi s. LIVER: Normal in size and contour. No focal lesion. BILIARY SYSTEM: No suspicious abnormalities. SPLEEN: Normal size. No focal lesion. PANCREAS: No mass, ductal dilation, or lucy-pancreatic fluid. ADRENALS: Normal; no mass. KIDNEYS: Patchy regions of cortical hypoenhancement involving the left lower renal pole, and right up per to midpole regions. Multifocal right upper pole cortical thinning suggests sequelae of prior scarring. No radiopaque calculi. No hydronephrosis. URINARY BLADDER: Unremarkable. GASTROINTESTINAL TRACT: No evidence of free air, bowel obstruction or abscess. Mild free pelvic fluid , nonspecific APPENDIX: Normal appendix. LYMPH NODES: No lymphadenopathy. MUSCULOSKELETAL: No acute or suspicious osseous abnormality. Stable right lower rib deformities, comp atible with healed fracture ADDITIONAL FINDINGS: Bilateral tubal occlusion devices present. IMPRESSION: Multifocal bilateral renal areas of cortical hypoenhancement as above, concerning for acute nephritis . No evidence of calculi or obstruction. Mild free pelvic fluid, nonspecific and could be physiologic in nature.
[2024-04-10] MEDS ORDERED: ONDANSETRON 4 MG/2 ML VIAL ONE (21:24)
[2024-04-10 22:21] VITALS: BMI 24.3
[2024-04-10] MEDS: NA CHLORIDE 0.9% 1,000 ML IV SCH (22:28)
[2024-04-10] MEDS: HYDROCODONE/APAP 5/325 MG TAB PO PRN (23:10)
[2024-04-11 05:51] LABS: Absolute Lymphocytes (CBC) 1.5 K/uL (0.7-4.9); Absolute Monocytes 0.7 K/uL (0.1-1.3); Absolute Neutrophil 8.6 K/uL (1.8-8.0); Basophils % 0.2 % (0-1.3); Eosinophils % 0.2 % (0-4.4); Hematocrit 26.3 % (36.0-45.0); Hemoglobin 8.7 g/dL (12.0-15.0); Lymphocytes % 13.4 % (15.3-44.8); MCV 75.7 fL (80-100); MPV 8.6 fL (7.6-11.3); Monocytes % 6.4 % (3.3-12.3); Neutrophils % 79.8 % (41.7-73.7); Nucleated Red Blood Cells % 0.1 % (0-0); Platelets 175 thou/uL (152-406); RBC Red Blood Cell Count 3.47 M/uL (3.86-4.86); Red Cell Distribution Width 16.5 % (12.1-15.2)
[2024-04-11] MEDS: ALBUMIN HUMAN 25% 100 ML IV ONE (06:01)
[2024-04-11 06:09] LABS: Albumin 2.3 g/dL (3.4-5.0); Albumin/Globulin Ratio 0.7 (1.1-1.8); Anion Gap 7.6 mEq/L (5.0-15.0); Bilirubin Total 0.4 mg/dL (0.2-1.0); Globulin 3.1 g/dL (2.3-3.5); Potassium 3.6 mEq/L (3.5-5.1); Protein, Total 5.4 g/dL (6.4-8.2)
[2024-04-11] MEDS: ALBUMIN HUMAN 25% 50 ML IV ONE (06:31)
[2024-04-11] MEDS: ACETAMINOPHEN 325 MG TABLET PO PRN (07:29)
[2024-04-11] MEDS: ENOXAPARIN 40 MG/0.4 ML SQ SCH (09:00)
[2024-04-11] MEDS: POTASSIUM CL SA 10 MEQ TAB PO ONE (09:08)
[2024-04-11] MEDS: CEFTRIAXONE 1,000 MG in NA CHLORIDE 0.9% 50 ML IVPB SCH (09:09)
--- NOTE | 2024-04-11 11:12 | P.PN ---
Subjective Date of Service: 04/11/24 Chief Complaint: Abdominal pain Patient stated she has tolerated liquid diets since this morning. Patient has intermittent fever. She reports prior history of ESBL E. coli UTI. Physical Examination - Vital Signs Temperature: 100.5 F Blood Pressure: 92/49 Pulse: 95 Respirations: 16 Pulse Ox (%): 98 - Studies Laboratory Data (last 24 hrs) 04/10/24 04/10/24 19:30 19:30 WBC 10.10 Hgb 10.3 L Hct 32.7 L Plt Count 241 Sodium 137 Potassium 3.2 L BUN 12 Creatinine 0.83 Glucose 117 H Total Bilirubin 0.4 AST 98 H ALT 153 H Alkaline Phosphatase 95 Microbiology Data (last 24 hrs): 04/10/24 19:30 Nasopharnyx Influenza Type A Antigen Screen - Final 04/10/24 19:30 Nasopharnyx Influenza Type B Antigen Screen - Final 04/10/24 19:30 Throat Group A Streptococcus Rapid Screen - Final Assessment And Plan - Plan Physical examination General: Alert and oriented x3, NAD, HEENT: Conjunctiva not pale, anicteric sclera Neck: Supple, no elevated JVD Heart: Heart sounds 1 and 2 normal, regular rhythm, normal rate, no pedal edema Lungs: Clear to auscultation bilaterally, adequate breath sounds bilaterally, no rhonchi or crackles. Abdomen: Soft, nondistended, nontender, normal bowel sounds. Extremities: No tenderness, no deformity Skin: Normal skin turgor, no rash, no nodules or ulcers. Neuro: No focal motor deficit. Normal speech. Psychiatry: Normal mood, no agitation. Acute cystitis with hematuria Acute pyelonephritis History of ESBL E. coli Septic shock. Normal lactate. Continue aggressive IV fluid resuscitation IV Rocephin changed to IV meropenem given history of ESBL E. coli. Urine culture: GNR. Blood cultures: No growth to date Advance diet as tolerated Follow cultures Supportive measures with analgesics as needed. Elevated LFT Unknown significance. Probably secondary to sepsis. Monitor LFTs Hypokalemia Corrected. Monitor BMP and replace potassium as needed. Microcytic anemia Patient states she is currently in her menstrual period. Anemia likely secondary to blood loss from menses Monitor and transfuse as needed for hemoglobin less than 7 DVT prophylaxis: Lovenox. Advanced directive: Full code.
[2024-04-11] MEDS: NA CHLORIDE 0.9% 1,000 ML IV ONE (11:38)
[2024-04-11] MEDS: MORPHINE 2 MG/ML SYR IV PRN (11:43)
[2024-04-11] MEDS: Meropenem 1,000 MG in NA CHLORIDE 0.9% 100 ML IV SCH (17:00)
[2024-04-12 04:30] LABS: Absolute Lymphocytes (CBC) 1.2 K/uL (0.7-4.9); Absolute Monocytes 0.9 K/uL (0.1-1.3); Basophils % 0.3 % (0-1.3); Eosinophils % 0.2 % (0-4.4); Hematocrit 24.9 % (36.0-45.0); Hemoglobin 8.1 g/dL (12.0-15.0); Lymphocytes % 12.8 % (15.3-44.8); MCH 24.5 pg (27.0-35.0); MCHC 32.7 g/dL (32.0-36.0); MCV 75.1 fL (80-100); MPV 8.6 fL (7.6-11.3); Monocytes % 9.4 % (3.3-12.3); Neutrophils % 77.3 % (41.7-73.7); Nucleated Red Blood Cells % 0.3 % (0-0); Platelets 186 thou/uL (152-406); RBC Red Blood Cell Count 3.32 M/uL (3.86-4.86); Red Cell Distribution Width 16.1 % (12.1-15.2)
[2024-04-12 04:42] LABS: Anion Gap 8.4 mEq/L (5.0-15.0); Potassium 3.4 mEq/L (3.5-5.1)
[2024-04-12] MEDS: POTASSIUM CL SA 10 MEQ TAB PO ONE (08:41)
[2024-04-12] MEDS: ONDANSETRON 4 MG/2 ML VIAL IV PRN (08:44)
--- NOTE | 2024-04-12 12:33 | P.PN ---
Subjective Date of Service: 04/12/24 Chief Complaint: Abdominal pain Patient reports she feels better compared to yesterday. Patient has been experiencing intermittent nausea but states overall her symptoms have improved. She reported loss of appetite. She has had no fever since this morning. Physical Examination - Vital Signs Temperature: 99.3 F Blood Pressure: 107/59 Pulse: 80 Respirations: 16 Pulse Ox (%): 95 - Studies Microbiology Data (last 24 hrs): 04/10/24 19:30 Throat Group A Streptococcus Rapid Screen - Final 04/10/24 19:30 Clean Catch Urine [place] Count - Final >100,000 CFU/ML. 04/10/24 19:30 Clean Catch Urine - Final Escherichia Coli Esbl Assessment And Plan - Plan Physical examination General: Alert and oriented x3, NAD, Neck: Supple, no elevated JVD Heart: Heart sounds 1 and 2 normal, regular rhythm, normal rate, no pedal edema Lungs: Clear to auscultation bilaterally, adequate breath sounds bilaterally, no rhonchi or crackles. Abdomen: Soft, nondistended, nontender, normal bowel sounds. Extremities: No tenderness, no deformity Skin: Normal skin turgor, no rash, no nodules or ulcers. Neuro: No focal motor deficit. Normal speech. Psychiatry: Normal mood, no agitation. Acute cystitis with hematuria Acute pyelonephritis History of ESBL E. coli Septic shock. Urine culture is growing ESBL E. coli. Blood cultures: No growth to date Current IV meropenem. Advance diet as tolerated Social service consulted for outpatient IV antibiotics arrangement. Midline for outpatient IV antibiotics requested. Elevated LFT Unknown significance. Probably secondary to sepsis. Monitor LFTs Hypokalemia Corrected. Monitor BMP and replace potassium as needed. Microcytic anemia Acute blood loss anemia Patient states she is currently in her menstrual period. Anemia likely secondary to blood loss from menses Monitor and transfuse as needed for hemoglobin less than 7 DVT prophylaxis: Lovenox. Advanced directive: Full code.
[2024-04-12] MEDS: IBUPROFEN 400 MG TAB PO PRN (12:53)
[2024-04-13 02:48] VITALS: O2SAT 97
[2024-04-13 05:38] LABS: Absolute Eosinophils 0.1 K/uL (0-0.5); Absolute Lymphocytes (CBC) 1.5 K/uL (0.7-4.9); Absolute Monocytes 0.7 K/uL (0.1-1.3); Absolute Neutrophil 6.8 K/uL (1.8-8.0); Basophils % 0.2 % (0-1.3); Hemoglobin 8.4 g/dL (12.0-15.0); Lymphocytes % 16.4 % (15.3-44.8); MCH 24.3 pg (27.0-35.0); MCHC 32.3 g/dL (32.0-36.0); MCV 75.5 fL (80-100); MPV 8.9 fL (7.6-11.3); Monocytes % 7.4 % (3.3-12.3); Nucleated Red Blood Cells % 0.1 % (0-0); Platelets 233 thou/uL (152-406); RBC Red Blood Cell Count 3.44 M/uL (3.86-4.86); Red Cell Distribution Width 16.4 % (12.1-15.2)
[2024-04-13 06:00] LABS: Albumin 2.3 g/dL (3.4-5.0); Albumin/Globulin Ratio 0.8 (1.1-1.8); Anion Gap 7.9 mEq/L (5.0-15.0); Bilirubin Total 0.3 mg/dL (0.2-1.0); Potassium 3.9 mEq/L (3.5-5.1); Protein, Total 5.3 g/dL (6.4-8.2)
--- NOTE | 2024-04-13 13:11 | P.PN ---
Subjective Date of Service: 04/13/24 Chief Complaint: Abdominal pain Patient states he feels much better. She has tolerated solid diet. She has had no fever since 2 days ago. Physical Examination - Vital Signs Temperature: 97.6 F Blood Pressure: 109/68 Pulse: 68 Respirations: 16 Pulse Ox (%): 96 - Studies Microbiology Data (last 24 hrs): 04/10/24 19:30 Throat Group A Streptococcus Rapid Screen - Final 04/10/24 19:30 Throat Culture & Sensitivity - Final NORMAL UPPER RESPIRATORY TAWNY GROWN. 04/10/24 19:30 Clean Catch Urine [place] Count - Final >100,000 CFU/ML. 04/10/24 19:30 Clean Catch Urine - Final Escherichia Coli Esbl Assessment And Plan - Plan Physical examination General: Alert and oriented x3, NAD, Heart: Heart sounds 1 and 2 normal, regular rhythm, normal rate, no pedal edema Lungs: Clear to auscultation bilaterally, adequate breath sounds bilaterally, no rhonchi or crackles. Abdomen: Soft, nondistended, nontender, normal bowel sounds. Extremities: No tenderness, no deformity Skin: Normal skin turgor, no rash, no nodules or ulcers. Neuro: No focal motor deficit. Normal speech. Psychiatry: Normal mood, no agitation. Acute cystitis with hematuria Acute pyelonephritis History of ESBL E. coli Septic shock. Urine culture is grew ESBL E. coli. Blood cultures: No growth to date Current IV meropenem. Advance diet as tolerated Social service consulted for outpatient IV antibiotics arrangement. Midline for outpatient IV antibiotics placed. Elevated LFT Unknown significance. Probably secondary to sepsis. LFTs trending down with monitoring. Hypokalemia Corrected. Monitor BMP and replace potassium as needed. Microcytic anemia Acute blood loss anemia Patient states she is currently in her menstrual period. Anemia likely secondary to blood loss from menses Monitor and transfuse as needed for hemoglobin less than 7 DVT prophylaxis: Lovenox. Advanced directive: Full code.
[2024-04-13] MEDS: Meropenem 1,000 MG in NA CHLORIDE 0.9% 100 ML IV ONE (17:44)
[2024-04-14] MEDS ORDERED: ERTAPENEM SODIUM 1 GM VIAL IVPB SCH (09:00)
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
[2024-04-14] MEDS: ERTAPENEM NA 1 GM in NA CHLORIDE 0.9% 100 ML IVPB SCH (14:02)
[2024-04-14 17:55] VITALS: BP 111/67; TEMP 98.2
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
== END 2024-04-14 15:22 | disposition home health service (06) | DRG 871 ==
LOC: ER 18:28 → ERHOLD 21:12 → 2ND 21:33
PROVIDERS: ADMIT Family Medicine; ATTEND Hospitalist
DX: A41.51 Sepsis due to Escherichia coli [E. coli] (principal); R65.21 Severe sepsis with septic shock; N10 Acute pyelonephritis; D62 Acute posthemorrhagic anemia; Z16.12 Extended spectrum beta lactamase (ESBL) resistance; D50.9 Iron deficiency anemia, unspecified; E86.0 Dehydration; E87.6 Hypokalemia; R79.89 Other specified abnormal findings of blood chemistry; Z88.1 Allergy status to other antibiotic agents; Z11.52 Encounter for screening for COVID-19
CPT/HCPCS: 36415; 71046; 74177; 80048; 80053; 81001; 83605; 84484; 84703; 85025; 87040; 87070; 87077; 87081; 87086; 87088; 87186; 87804; 87811; 93005; 96365; 96375; 99285; J0696; J1335; J1650; J2185; J2270; J2405; J7030; P9047; Q9967

== ENCOUNTER 2024-04-24 11:29 | Emergency (ER) | payer SELFPAY ==
--- OUTSIDE RECORDS SUMMARY | 2024-04-24 11:32 | XMS REPORT | Continuity of Care Document ---
Author Name Unknown Address [address] [place] [address] [facility] thconnect Address [address] [place] [address] Care Team Providers Care Car Parker Name Role Phone Sary Gaffney Primary Care Physician Doctor Unassigned, [place] Attending Clinician Noy Patel Attending Clinician [phone] ANGELICA HUBBARD Attending Clinician Angelica Fowler Attending Clinician [phone] Payers Payer Name Policy Type Policy Number Effective Date Expirati on Date Source Problems Condition Name Condition Details Condition Category Status Onset Date Resolution Date Last Treatment Date Treating Clinician Comments Source History of female sterilizat ion History of female sterilizat ion Disease Active 2019-04 00:00: 00 [facility] Abnormal uterine bleeding Abnormal uterine bleeding Disease Active 2019-04 00:00: 00 [facility] Pain pelvic Pain pelvic Disease Active 2019-04 00:00: 00 [facility] Bacterial nephritis Bacterial nephritis Disease Active 2016-04 00:00: 00 [facility] Allergies, Adverse Reactions, Alerts Allergy Name Allergy Type Status Severity Reaction(s) Onset Date Inactive Date Treating Clinician Comments Source Hydrocod one Propensi ty to adverse reaction s Active Nausea and/or Vomiting 2016-04 00:00: 00 [facility] HYDROCOD ONE DRUG INGREDI Active N/V 2016-04 00:00: 00 [facility] Social History Social Habit Start Date Stop Date Quantity Comments Source History of tobacco use Cigarette Smoker [facility] Sexual orientation [facility] Tobacco use and exposure 2020-02-11 00:00:00 2020-02-11 00:00:00 Smokeless tobacco non-user [facility] Alcohol Comment 2020-02-11 00:00:00 2020-02-11 00:00:00 SOCIAL [facility] Alcohol intake 2020-02-11 00:00:00 2020-02-11 00:00:00 Current drinker of alcohol (finding) [facility] History of Social function 2020-02-11 00:00:00 2020-02-11 00:00:00 [facility] Sex Assigned At 1985 00:00:00 1985 00:00:00 [facility] Smoking Status Start Date Stop Date Source Ex-smoker 2020-02-11 00:00:00 2020-02-11 00:00:00 [facility] Never smoker [facility] Medications Ordered Medication Name Filled Medication Name Start Date Stop Date Current Medication? Ordering Clinician Indication Dosage Frequency Signature (SIG) Comments Components Source Sudafed 12 Hour 120 mg tablet,exte nded release 2023-04 00:00: 00 Yes 1mg Aaron Edwards Flokassi Allergy Relief 50 mcg/actuati on nasal spray,suspe nsion 2023-04 00:00: 00 Yes 12mcg/a ctuatio n Aaron Edwards cyanocobala min, vitamin B-12, (MEDICAL PLANNER-B12 INJECTION) 2019-04 18:33: 12 Yes Inject as directed. [facility] cyanocobala min, vitamin B-12, (MEDICAL PLANNER-B12 INJECTION) 2019-04 13:33: 12 Yes Inject as directed. [facility] cefpodoxime 200 mg tablet 2016-04 00:00: 00 02-10 00:00 :00 No 200mg Take 1 tablet by mouth 2 (two) times daily. [facility] traMADOL 50 mg tablet 2016-04 00:00: 00 02-10 00:00 :00 No 50mg Take 1 tablet by mouth every 6 (six) hours as needed for Pain (scale 4-6) or Pain (scale 7-10). [facility] Vital Signs Vital Name Observation Time Observation Value Comments Tristin fajardo Systolic blood pressure 2020-02-11 18:30:00 102 mm[Hg] [facility] Diastolic blood pressure 2020-02-11 18:30:00 67 mm[Hg] [facility] [facility] Heart rate 2020-02-11 18:30:00 83 /min [facility] Body temperature 2020-02-11 18:30:00 36.28 Fabiana [facility] Respiratory rate 2020-02-11 18:30:00 18 /min [facility] Body height 2020-02-11 18:30:00 154.9 cm [facility] Body weight 2020-02-11 18:30:00 65.403 kg [facility] BMI 2020-02-11 18:30:00 27.24 kg/m2 [facility] Systolic blood pressure 2020-02-11 18:30:00 102 mm[Hg] [facility] Diastolic blood pressure 2020-02-11 18:30:00 67 mm[Hg] [facility] Heart rate 2020-02-11 18:30:00 83 /min [facility] Body temperature 2020-02-11 18:30:00 36.28 Fabiana [facility] Respiratory rate 2020-02-11 18:30:00 18 /min [facility] Body height 2020-02-11 18:30:00 154.9 cm [facility] Body weight 2020-02-11 18:30:00 65.403 kg [facility] BMI 2020-02-11 18:30:00 27.24 kg/m2 [facility] BP Diastolic 2024-02-06 14:46:00 68 mm[Hg] [...] (LETTERS, USPS DOCUMENTATION) 2020-08-18 05:01:00 Doctor Unassigned, [place] [facility] NOTICE OF PRIVACY PRACTICES 2020-02-11 17:52:50 Doctor Unassigned, [place] [facility] POCT TEST 2020-02-11 00:00:00 Sea Hubbard [facility] Encounters Start Date/Time End Date/Time Encounter Type Admission Type Attending Clinicians Care Facility Care Department Encounter ID Source 2024-02-06 14:45:03 2024-02-06 14:45:03 Outpatient [facility] [id number] Aaron Edwards 2024-02-06 00:00:00 2024-02-06 00:00:00 Outpatient Visit [facility] [id number] Aaron Edwards 2020-08-18 00:00:00 2020-08-18 00:00:00 Orders Only Doctor Unassigned, [place] [facility] 1..840.114 350.1.13.10 4.2.7.2.[id number] [facility] 2020-08-01 00:00:00 2020-08-01 00:00:00 Case Management [facility] 1.840.114 350.1.13.10 4.2.7.2.[id number] [facility] 2020-07-19 10:00:00 2020-07-19 10:00:00 Outpatient R [facility] [id number] [facility] 2020-07-19 00:00:00 2020-07-19 00:00:00 [facility] 1..114 350.1.13.10 4.2.7.2.[id number] [facility] 2020-05-19 10:00:00 2020-05-19 10:00:00 Outpatient R [facility] [id number] [facility] 2020-05-19 00:00:00 2020-05-19 00:00:00 Telephone [facility] 1..114 350.1.13.10 4.2.7.2.[id number] [facility] 2020-05-19 00:00:00 2020-05-19 00:00:00 Letter (Out) [facility] 1..114 350.1.13.10 4.2.7.2.[id number] [facility] 2020-03-03 11:00:00 2020-03-03 11:00:00 Outpatient R [facility] [id number] [facility] 2020-03-03 10:30:00 2020-03-03 10:30:00 Outpatient R [facility] [id number] [facility] 2020-03-03 00:00:00 2020-03-03 00:00:00 Telephone [facility] 1..114 350.1.13.10 4.2.7.2.686 [id number] 2020-03-03 00:00:00 2020-03-03 00:00:00 Letter (Out) [facility] 1..114 350.1.13.10 4.2.7.2.686 [id number] 2020-03-03 00:00:00 2020-03-03 00:00:00 Telephone [facility] 1..114 350.1.13.10 4.2.7.2.[id number] [facility] 2020-03-03 00:00:00 2020-03-03 00:00:00 Letter (Out) Noy R[facility]os [facility] 1.840.114 350.1.13.10 4.2.7.2.[id number] [facility] 2020-02-24 15:30:00 2020-02-24 15:30:00 Outpatient R [facility] [id number] [facility] 2020-02-24 12:30:00 2020-02-24 12:30:00 Outpatient R [facility] [id number] [facility] 2020-02-15 00:00:00 2020-02-15 00:00:00 Patient Secure Msg Doctor Unassigned, [place] [facility] [employer] 1..840.114 350.1.13.10 4.2.7.2.[id number] [facility] 2020-02-12 00:00:00 2020-02-12 00:00:00 Patient Secure Msg Doctor Unassigned, [place] [facility] 1..840.114 350.1.13.10 4.2.7.2.[id number] [facility] 2020-02-11 13:00:00 2020-02-11 14:29:44 Outpatient R ANGELICA HUBBARD [facility] [id number] [facility] 2020-02-11 12:57:49 2020-02-11 14:29:44 Office Visit Angelica Hubbard [facility] 1..840.114 350.1.13.10 4.2.7.2.686 [id number] 2020-02-11 12:57:49 2020-02-11 14:29:44 Office Visit Angelica Hubbard [facility] 1.840.114 350.1.13.10 4.2.7.2.[id number] [facility] 2020-02-11 00:00:00 2020-02-11 00:00:00 Orders Only Doctor Unassigned, [place] [facility] 1..840.114 350.1.13.10 4.2.7.2.[id number] [facility] Results Test Description Test Time Test Comments Results Result Co mments Source [id number]:00:00* Test Item Value Reference Range Interpretation Comme nts POCT PREG (test code = 1605) Negative On board controls acceptable with C Line (test code = 3574) Yes POCT PREG LOT # (test code = 3575) POCT PREG TEST DATE ( test code = 3576) [facility]
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
[2024-04-24 12:29] VITALS: BP 111/81; TEMP 97.4; O2SAT 100
== END 2024-04-24 12:24 | disposition home or self-care (01) ==
LOC: ER 11:29
DX: Z45.2 Encounter for adjustment and management of vascular access device (principal)
CPT/HCPCS: 99283